=== PATIENT | female | born 1950 | race African-American/Black ===

== ENCOUNTER 2023-07-14 07:58 | Day surgery (SDC) | payer OTHER ==
[2023-07-11 14:03] LABS: Absolute Lymphocytes (CBC) 1.6 K/uL (0.7-4.9); Hematocrit 34.4 % (36.0-45.0); Lymphocytes % 22.3 % (15.3-44.8); MCV 91.9 fL (80-100); MPV 6.6 fL (7.6-11.3); Platelets 255 thou/uL (152-406); RBC Red Blood Cell Count 3.74 M/uL (3.86-4.86)
[2023-07-11 14:08] LABS: Protime INR 1.46
[2023-07-14] MEDS ORDERED: Ringers Lactate 1,000 ML IV ONE (08:46)
[2023-07-14 09:10] LABS: Protime INR 1.04
[2023-07-14] MEDS ORDERED: propofoL 200 MG/20 ML VIAL IV ONE (09:27)
[2023-07-14] MEDS ORDERED: LIDOCAINE 1% MPF 5 ML VIAL ONE (09:27)
[2023-07-14 10:40] VITALS: TEMP 97.7
[2023-07-14 10:42] VITALS: BP 124/67; O2SAT 100
== END 2023-07-14 10:33 | disposition home or self-care (01) ==
LOC: OR 07:58
PROVIDERS: ATTEND Internal Medicine Gastroenterology
PROC: 0DBL8ZX Excision of Transverse Colon, Via Natural or Artificial Opening Endoscopic, Diagnostic (ICD-10-PCS; principal; 2023-07-14 09:15)
DX: D12.3 Benign neoplasm of transverse colon (principal); R19.5 Other fecal abnormalities; K64.8 Other hemorrhoids; D64.9 Anemia, unspecified; C34.90 Malignant neoplasm of unspecified part of unspecified bronchus or lung; Z99.81 Dependence on supplemental oxygen; Z79.01 Long term (current) use of anticoagulants
CPT/HCPCS: 85025; 36415 ×2; 85610 ×2; 88305; 85730 ×2; 45384; J2704; J2001; J7120

== ENCOUNTER 2023-10-07 07:26 | Day surgery (SDC) | payer OTHER ==
[2023-10-03 14:20] LABS: Absolute Lymphocytes (CBC) 1.5 K/uL (0.7-4.9); Lymphocytes % 20.3 % (15.3-44.8); MCV 93.2 fL (80-100); MPV 6.9 fL (7.6-11.3); Platelets 268 thou/uL (152-406); RBC Red Blood Cell Count 3.75 M/uL (3.86-4.86)
[2023-10-03 14:27] LABS: Protime INR 1.69
[2023-10-07] MEDS ORDERED: propofoL 200 MG/20 ML VIAL IV ONE (07:52)
[2023-10-07] MEDS ORDERED: LIDOCAINE 1% MPF 30 ML VIAL ONE (07:52)
[2023-10-07] MEDS: Ringers Lactate 1,000 ML IV ONE (08:05)
[2023-10-07 10:07] VITALS: BP 126/72; TEMP 97.2; O2SAT 98
== END 2023-10-07 09:48 | disposition home or self-care (01) ==
LOC: OR 07:26
PROVIDERS: ATTEND Internal Medicine Gastroenterology
PROC: 0DB78ZX Excision of Stomach, Pylorus, Via Natural or Artificial Opening Endoscopic, Diagnostic (ICD-10-PCS; 2023-10-07)
PROC: 0DB38ZX Excision of Lower Esophagus, Via Natural or Artificial Opening Endoscopic, Diagnostic (ICD-10-PCS; principal; 2023-10-07 08:30)
DX: K21.9 Gastro-esophageal reflux disease without esophagitis (principal); R19.5 Other fecal abnormalities; K29.50 Unspecified chronic gastritis without bleeding; K21.00 Gastro-esophageal reflux disease with esophagitis, without bleeding; K22.9 Disease of esophagus, unspecified; Z99.81 Dependence on supplemental oxygen
CPT/HCPCS: 85025; 36415; 88312; 85610; 88305; 85730; 43239; J2704; J2001; J7120; 88304

== ENCOUNTER 2024-06-27 20:09 | Emergency (ER) | payer OTHER ==
[2024-06-27 20:59] LABS: Absolute Basophils 0.1 K/uL (0-0.5); Absolute Eosinophils 0.1 K/uL (0-0.5); Absolute Lymphocytes (CBC) 2.1 K/uL (0.7-4.9); Absolute Monocytes 0.7 K/uL (0.1-1.3); Absolute Neutrophil 6.1 K/uL (1.8-8.0); Basophils % 0.6 % (0-1.3); Eosinophils % 0.6 % (0-4.4); Hematocrit 35.1 % (36.0-45.0); Hemoglobin 11.6 g/dL (12.0-15.0); Lymphocytes % 22.9 % (15.3-44.8); MCH 30.5 pg (27.0-35.0); MCV 92.4 fL (80-100); Monocytes % 8.3 % (3.3-12.3); Neutrophils % 67.6 % (41.7-73.7); Platelets 336 thou/uL (152-406); Red Cell Distribution Width 14.7 % (12.1-15.2)
[2024-06-27] MEDS ORDERED: GABAPENTIN 300 MG CAP ONE (21:09)
[2024-06-27] MEDS ORDERED: dexAMETHasone 10 MG/ML VIAL ONE (21:09)
[2024-06-27] MEDS ORDERED: NA CHLORIDE 0.9% 100 ML ONE (21:11)
[2024-06-27] MEDS ORDERED: METHOCARBAMOL 1,000 MG/10 ML VIAL ONE (21:11)
[2024-06-27 21:39] LABS: Albumin 3.5 g/dL (3.4-5.0); Albumin/Globulin Ratio 0.7 (1.1-1.8); Anion Gap 7.8 mEq/L (5.0-15.0); Bilirubin Total 0.3 mg/dL (0.2-1.0); Globulin 4.9 g/dL (2.3-3.5); Potassium 3.8 mEq/L (3.5-5.1); Protein, Total 8.4 g/dL (6.4-8.2)
--- NOTE | 2024-06-27 21:56 | RAD REPORT ---
EXAMINATION: US LOWER EXTREMITY VENOUS DOPPLER BILATERAL CLINICAL INDICATION: Female, 73 years old.PAIN TECHNIQUE: Complete bilateral duplex sonography of the lower extremity veins was performed. The exami nation included compression for vein patency, color Doppler imaging and flow augmentation in response to distal compression of the distal external iliac, common femoral, femoral, popliteal, phan brenda, tibial and great saphenous veins. [id number]. COMPARISON: No prior exams FINDINGS: Duplex sonography imaging demonstrates all deep examined to be fully compressible with spontaneous, p hasic and augmented flow bilaterally. IMPRESSION: No evidence of deep venous thrombosis seen in either lower extremity.
--- NOTE | 2024-06-27 22:17 | RAD REPORT ---
EXAMINATION: CT ABDOMEN AND PELVIS WITH CONTRAST CLINICAL INDICATION: Female, 73 years old.low back and pelvis pain TECHNIQUE: CT abdomen and pelvis was performed, after the administration of IV contrast, as per [facility] protocol. Axial, sagittal and coronal reconstructions were obtained. One or more of the following dose reduction techniques were used: Automated exposure control, adjustment of the mA and/o r kV according to patient size, and/or iterative reconstruction. Unless otherwise specified, incidental findings do not require dedicated imaging follow-up. [id number]. COMPARISON: Chest CT 05/12/2024 FINDINGS: LOWER CHEST: Scarring lung bases. 17 mm left hilar lymph node is unchanged. LIVER: Normal in size and contour. No focal lesion. GALLBLADDER/BILE DUCT: No biliary ductal dilatation.? PANCREAS: No significant abnormality. SPLEEN: Normal size. No focal lesion. ADRENALS: Normal; no mass. KIDNEYS AND URETERS: Normal size and contour. No hydronephrosis. GASTROINTESTINAL TRACT: Stomach is non-dilated. Small bowel has normal course and caliber. No colonic wall thickening or pericolonic inflammatory changes. PERITONEUM: No ascites. LYMPH NODES: No lymphadenopathy. ABDOMINAL AORTA AND OTHER VESSELS: Normal caliber aorta and IVC. URINARY BLADDER: Normal contour. REPRODUCTIVE ORGANS: No pathologic process extremity. MUSCULOSKELETAL: Osseous metastatic disease is present. This includes at L1 along the left anterior a spect of vertebral body, and L4. Remote left-sided rib fractures. Spinal stenosis likely due to underlying degenerative changes at L3-4 and L4-5 primarily. Is moderate. ADDITIONAL FINDINGS: None. IMPRESSION: Osseous metastatic disease with particular involvement of L4. No significant height loss. This involv es nearly the anterior half of the vertebral body. By CT, no evidence of epidural extension or resultant central spinal stenosis.
[2024-06-27 22:42] LABS: Specific Gravity > 1.030 (1.005-1.030); Sqamous Epithelial <5 /HPF (None Seen); Urine Bacteria <20 /HPF (<20); Urine Bilirubin NEGATIVE (Negative); Urine Blood 1+ (Negative); Urine Clarity Clear (Clear); Urine Color Light-Yellow (Yellow); Urine Culture Reflex Order NOT NEEDED; Urine Glucose NEGATIVE (Negative); Urine Ketones NEGATIVE (Negative); Urine Microscopic Reflex YN ORDER UMIC; Urine Mucus Slight /HPF (None Seen); Urine Nitrite NEGATIVE (Negative); Urine Protein TRACE (Negative); Urine RBC <5 /HPF (None Seen); Urine Urobilinogen 1+ (Normal); Urine WBC <5 /HPF (<5); Urine pH 5.5 (5.0-7.0)
--- NOTE | 2024-06-27 23:48 | ER ---
Nurse's Notes [facility] Name: Kaylah Roper Age: 73 yrs Sex: Female : 1950 Arrival Date: 06/27/2024 Time: 20:09 Bed 20 Private MD: Diagnosis: Radiculopathy, lumbosacral region;Low back pain Presentation: 06/27 20:34 Chief complaint: Patient states: chronic lower back pain that radiates down both me1 thighs. Almost out of tylenol #3 at home. Coronavirus screen: Vaccine status: Patient reports receiving the 2nd dose of the covid vaccine. Ebola Screen: No symptoms or risks identified at this time. Initial Sepsis Screen: Does the patient meet any 2 criteria? No. Patient's initial sepsis screen is negative. Does the patient have a suspected source of infection? No. Patient's initial sepsis screen is negative. Risk Assessment: Do you want to hurt yourself or someone else? Patient reports no desire to harm self or others. Onset of symptoms is unknown. 20:34 Method Of Arrival: Wheelchair me1 20:34 Acuity: JASPER 4 me1 Historical: - Allergies: 20:35 No Known Allergies; me1 - PMHx: 20:35 lung cancer; Hypertensive disorder; rib fractures; DVTleft leg; me1 - PSHx: 20:35 Ligation of fallopian tube; hysterectomy; me1 - Immunization history:: Adult Immunizations up to date. - Infectious Disease History:: Denies. - Social history:: Smoking status: Patient/guardian denies using tobacco, the patient reports quitting approximately 2 years ago. Screenin:18 [facility] ED Fall Risk Assessment (Adult) History of falling in the last 3 months, br2 including since admission No falls in past 3 months (0 pts) Confusion or Disorientation No (0 pts) Intoxicated or Sedated No (0 pts) Impaired Gait Yes (1 pt) Mobility Assist Device Used Yes (1 pt) Altered Elimination No (0 pt) Score/Fall Risk Level 0 - 2 = Low Risk Oriented to surroundings, Maintained a safe environment, Educated pt \T\ family on fall prevention, incl call for assistance when getting out of bed. Abuse screen: Denies threats or abuse. Denies injuries from another. Nutritional screening: No deficits noted. Tuberculosis screening: No symptoms or risk factors identified. Assessment: 20:40 Reassessment: Patient and/or family updated on plan of care and expected duration. Pain br2 level reassessed. Patient is alert, oriented x 3, equal unlabored respirations, skin warm/dry/pink. General: Appears uncomfortable, Behavior is calm, cooperative. Pain: Complains of pain in lumbar area, left low back and right low back Pain radiates to back of left leg, back of right leg, right leg and left leg. Neuro: Level of Consciousness is awake, alert, obeys commands, Oriented to person, place, time. Cardiovascular: Capillary refill < 3 seconds. Respiratory: Airway is patent Respiratory effort is even, unlabored. GI: No signs and/or symptoms were reported involving the gastrointestinal system. : No signs and/or symptoms were reported regarding the genitourinary system. EENT: No signs and/or symptoms were reported regarding the EENT system. 21:00 Reassessment: Patient and/or family updated on plan of care and expected duration. Pain br2 level reassessed. Patient is alert, oriented x 3, equal unlabored respirations, skin warm/dry/pink. 22:50 Reassessment: Patient and/or family updated on plan of care and expected duration. Pain br2 level reassessed. Patient is alert, oriented x 3, equal unlabored respirations, skin warm/dry/pink. 23:45 Reassessment: Patient and/or family updated on plan of care and expected duration. Pain br2 level reassessed. Patient is alert, oriented x 3, equal unlabored respirations, skin warm/dry/pink. Patient states feeling better. Patient states symptoms have improved. Vital Signs: 20:34 BP 166 / 104; Pulse 95; Resp 20; Temp 98.4; Pulse Ox 100% on 3 lpm NC; Weight 117.93 me1 kg; Height 5 ft. 5 in. ; Pain 9/10; 21:00 BP 120 / 60; Pulse 96; Resp 20; Temp 97.2; Pulse Ox 97% on 2 lpm NC; br2 22:21 BP 128 / 64; Pulse 94; Resp 18 S; Temp 97.2; Pulse Ox 100% on 2 lpm NC; br2 22:46 BP 116 / 86; Pulse 87; Resp 18 S; Temp 97.1; Pulse Ox 100% on 2 lpm NC; Pain 5/10; br2 23:00 BP 124 / 84; Pulse 84; Resp 20 S; Pulse Ox 100% on R/A; Pain 3/10; br2 20:34 Body Mass Index 43.27 (117.93 kg, 165.1 cm) me1 20:34 Pain Scale: Adult me1 22:46 Pain Scale: Adult br2 23:00 Pain Scale: Adult br2 ED Course: 20:11 Patient arrived in ED. jj6 20:14 Gorge Brito PA is PHCP. cp 20:14 Jose David Garrison MD is Attending Physician. cp 20:30 Patient has correct armband on for positive identification. Bed in low position. Call br2 light in reach. Side rails up X 1. Provided Education on: PLAN OF CARE. 20:35 Triage completed. me1 20:35 Arm band placed on Patient placed in an exam room. me1 20:40 Tamiko Morrow, RN is Primary Nurse. br2 20:40 Inserted saline lock: 20 gauge in right antecubital area, using aseptic technique. br2 Blood collected. Flushed with 10 mL NS. 21:18 CMP Sent. br2 21:18 Lipase Sent. br2 21:18 Urinalysis w/ reflexes Sent. br2 21:44 EKG done, by technology trainer. reviewed by Jose David Garrison MD. oh1 21:54 US Extremity Venous W Compression Maninder In Process Unspecified. EDMS 22:02 CT Abd/Pelvis - IV Contrast Only In Process Unspecified. EDMS 23:53 intact, bleeding controlled, No redness/swelling at site. Pressure dressing applied. oh1 23:59 IV discontinued, intact, bleeding controlled, No redness/swelling at site. Pressure br2 dressing applied. 06/28 00:05 No provider procedures requiring assistance completed. br2 Administered Medications: 06/27 21:17 Drug: Neurontin PO 300 mg PO once Route: PO; br2 22:00 Follow up: Response: No adverse reaction; Pain is decreased br2 22:17 Drug: Methocarbamol IVPB 1 grams IVPB once over 1 hrs; (mix in NS 100 mL) Route: IVPB; br2 Infused Over: 1 hrs; Site: right antecubital; 23:20 Follow up: IV Status: Completed infusion; IV Intake: 100ml br2 22:18 Drug: Dexamethasone IVP 10 mg IVP once Route: IVP; Site: right antecubital; br2 23:00 Follow up: Response: No adverse reaction br2 Medication: 06/28 00:05 VIS not applicable for this client. br2 Intake: 06/27 23:20 IV: 100ml; Total: 100ml. br2 Outcome: 23:48 Discharge ordered by MD. cp 23:59 Discharged to home ambulatory, br2 23:59 Condition: good 23:59 Discharge instructions given to patient, Instructed on discharge instructions, follow up and referral plans. medication usage, Demonstrated understanding of medications, Prescriptions given X 3, 06/28 00:09 Patient left the ED. br2 Signatures: Dispatcher [employer] EDMS Gorge Brito PA PA cp Jeffries, Jennifer [email or web address] Mervat Junior RN RN me1 Tamiko Morrow RN RN br2 Sophia Aguilar oh1 Corrections: (The following items were deleted from the chart) 06/27 22:50 22:21 BP 128 / 64; Pulse 94bpm; Resp 18bpm; Spontaneous; Pulse Ox 100% RA; Temp 97.2F; br2 br2 22:50 22:46 BP 116 / 86; Pulse 87bpm; Resp 18bpm; Spontaneous; Pulse Ox 100% RA; Temp 97.1F; br2 Pain 5/10, Adult; br2
--- NOTE | 2024-06-27 23:48 | EDPHYS ---
Physician Documentation [facility] Name: Kaylah Roper Age: 73 yrs Sex: Female : 1950 Arrival Date: 06/27/2024 Time: 20:09 Bed 20 Private MD: ED Physician Jose David Garrison HPI: 06/27 20:50 This 73 yrs old Black Female presents to ER via Wheelchair with complaints of Hip Pain, cp Back Pain, Pelvic Pain. 20:50 The patient presents with pain that is chronic, with no known mechanism of injury. cp 20:50 The symptoms are located in the low back. Onset: The symptoms/episode began/occurred cp for several months. The pain radiates to the left hip and right hip and pain to left leg and right leg. Associated signs and symptoms: Pertinent positives: left leg and right leg weakness, Pertinent negatives: abdominal pain, chest pain, constipation, dysuria, fever, incontinence, numbness, injury. Severity of symptoms: in the emergency department the symptoms are unchanged, despite home interventions. Historical: - Allergies: 20:35 No Known Allergies; me1 - PMHx: 20:35 lung cancer; Hypertensive disorder; rib fractures; DVTleft leg; me1 - PSHx: 20:35 Ligation of fallopian tube; hysterectomy; me1 - Immunization history:: Adult Immunizations up to date. - Infectious Disease History:: Denies. - Social history:: Smoking status: Patient/guardian denies using tobacco, the patient reports quitting approximately 2 years ago. ROS: 20:55 Constitutional: Negative for body aches, chills, fever, poor PO intake, cp 20:55 Eyes: Negative for injury, pain, redness, and discharge, cp 20:55 ENT: Negative for drainage from ear(s), ear pain, sore throat, difficulty swallowing, difficulty handling secretions, 20:55 Neck: Negative for pain with movement, pain at rest, stiffness, 20:55 Cardiovascular: Negative for chest pain, edema, palpitations, 20:55 Respiratory: Negative for cough, shortness of breath, wheezing, 20:55 Abdomen/GI: Negative for abdominal pain, vomiting, diarrhea, constipation, 20:55 Back: Positive for pain at rest, pain with movement, of the low back area and mid back area, 20:55 MS/extremity: Positive for pain, of the left hip and right hip and left leg and right leg, Negative for injury or acute deformity, decreased range of motion, paresthesias, 20:55 Neuro: Positive for weakness, of the right leg and left leg, Negative for altered mental status, dizziness, numbness, 20:55 All other systems are negative, Exam: 21:00 Constitutional: The patient appears in no acute distress, alert, awake, non-toxic, well cp developed, well nourished, obese, 21:00 Head/Face: Normocephalic, atraumatic. cp 21:00 Eyes: Periorbital structures: appear normal, Conjunctiva: normal, no exudate, no injection, Sclera: no appreciated abnormality, Lids and lashes: appear normal, bilaterally, 21:00 ENT: External ear(s): are unremarkable, Nose: is normal, Mouth: Lips: moist, Oral mucosa: pink and intact, moist, Posterior pharynx: Airway: no evidence of obstruction, patent, 21:00 Neck: ROM/movement: is normal, is supple, without pain, no range of motions limitations, 21:00 Chest/axilla: Inspection: normal, 21:00 Cardiovascular: Rate: normal, Rhythm: regular, Edema: ankle edema, that is mild, JVD: is not appreciated, 21:00 Respiratory: the patient does not display signs of respiratory distress, Respirations: normal, no use of accessory muscles, no retractions, labored breathing, is not present, Breath sounds: are clear throughout, no decreased breath sounds, no stridor, no wheezing, 21:00 Abdomen/GI: Inspection: abdomen appears normal, Palpation: abdomen is soft and non-tender, in all quadrants, 21:00 Back: pain, that is moderate, of the low back area and mid back area, ROM is painful, with all movement, 21:00 Musculoskeletal/extremity: ROM: limited passive range of motion due to pain, in the left hip and right hip, 21:00 Neuro: Orientation: to person, place \T\ time. Mentation: is normal, Motor: moves all fours, no focal deficits, Sensation: no obvious gross deficits, 22:00 ECG was reviewed by the Attending Physician. cp Vital Signs: 20:34 BP 166 / 104; Pulse 95; Resp 20; Temp 98.4; Pulse Ox 100% on 3 lpm NC; Weight 117.93 me1 kg; Height 5 ft. 5 in. ; Pain 9/10; 21:00 BP 120 / 60; Pulse 96; Resp 20; Temp 97.2; Pulse Ox 97% on 2 lpm NC; br2 22:21 BP 128 / 64; Pulse 94; Resp 18 S; Temp 97.2; Pulse Ox 100% on 2 lpm NC; br2 22:46 BP 116 / 86; Pulse 87; Resp 18 S; Temp 97.1; Pulse Ox 100% on 2 lpm NC; Pain 5/10; br2 23:00 BP 124 / 84; Pulse 84; Resp 20 S; Pulse Ox 100% on R/A; Pain 3/10; br2 20:34 Body Mass Index 43.27 (117.93 kg, 165.1 cm) me1 20:34 Pain Scale: Adult me1 22:46 Pain Scale: Adult br2 23:00 Pain Scale: Adult br2 MDM: 20:24 Medical Screening Exam initiated 21:00 Differential diagnosis: intertrochanteric fracture, femoral neck fracture, femoral cp shaft fracture, bursitis. 23:47 Data reviewed: vital signs, nurses notes, lab test result(s), radiologic studies, CT cp scan, and as a result, I will discharge patient. 23:47 I considered the following discharge prescriptions or medication management in the emergency department Medications were administered in the Emergency Department. See MAR. Care significantly affected by the following chronic conditions: Hypertension, Cancer. Counseling: I had a detailed discussion with the patient and/or guardian regarding the historical points, exam findings, and any diagnostic results supporting the discharge/admit diagnosis, lab results, radiology results, the need for outpatient follow up, oncology, to return to the emergency department if symptoms worsen or persist or if there are any questions or concerns that arise at home. Response to treatment: the patient's symptoms have markedly improved after treatment, and as a result, I will discharge patient. Special discussion: findings of CT abdomen/pelvis and need for oncology f/u. 06/27 20:47 Order name: CBC with Diff; Complete Time: 22:33 06/27 22:33 Interpretation: Normal except: RBC 3.80; HGB 11.6; HCT 35.1; MPV 7.0. 06/27 20:47 Order name: CMP; Complete Time: 22:33 cp 06/27 22:34 Interpretation: Normal except: NA 135; CRE 1.12; GFR 53; ALK 179; TP 8.4; GLOB 4.9; A/G cp 0.7. 06/27 20:47 Order name: Lipase; Complete Time: 22:33 cp 06/27 20:47 Order name: Urinalysis w/ reflexes; Complete Time: 22:50 cp 06/27 22:50 Interpretation: Normal except: Urine SG > 1.030; UBLD 1+; UPROT TRACE; UUROB 1+. cp 06/27 20:47 Order name: CT Abd/Pelvis - IV Contrast Only; Complete Time: 22:33 cp 06/27 20:47 Order name: US Extremity Venous W Compression Maninder; Complete Time: 22:33 cp 06/27 22:36 Interpretation: Report reviewed. cp 06/27 20:47 Order name: IV Saline Lock; Complete Time: 21:18 cp 06/27 20:47 Order name: Labs collected and sent; Complete Time: 21:18 cp EC:00 Rate is 94 beats/min. Rhythm is regular. DC interval is normal. QRS interval is normal. cp QT interval is normal. T waves are Inverted in lead aVR. Interpreted by me. Reviewed by me. Administered Medications: 21:17 Drug: Neurontin PO 300 mg PO once Route: PO; br2 22:00 Follow up: Response: No adverse reaction; Pain is decreased br2 22:17 Drug: Methocarbamol IVPB 1 grams IVPB once over 1 hrs; (mix in NS 100 mL) Route: IVPB; br2 Infused Over: 1 hrs; Site: right antecubital; 23:20 Follow up: IV Status: Completed infusion; IV Intake: 100ml br2 22:18 Drug: Dexamethasone IVP 10 mg IVP once Route: IVP; Site: right antecubital; br2 23:00 Follow up: Response: No adverse reaction br2 Disposition: 06/28 20:15 Co-signature as Attending Physician, Jose David Garrison MD I agree with the assessment sp4 and plan of care. I reviewed the patient's care provided by the Advanced Practice Provider and agree with the diagnosis and treatment plan. Disposition Summary: 06/27/24 23:48 Discharge Ordered Notes: Location: Home cp Problem: an ongoing problem cp Symptoms: have improved cp Condition: Stable cp Diagnosis - Radiculopathy, lumbosacral region cp - Low back pain cp Followup: cp - With: Private Physician - When: 2 - 3 days - Reason: Recheck today's complaints Discharge Instructions: - Discharge Summary Sheet cp - Chronic Back Pain cp - Lumbosacral Radiculopathy cp - Heat Therapy cp Forms: - Medication Reconciliation Form cp - Antibiotic Education cp - Prescription Opioid Use cp - Patient Portal Instructions cp - Leadership Thank You Letter cp Prescriptions: - Neurontin 300 mg Oral Capsule - take 1 capsule ORAL route At bedtime; 20 capsule; Refills: 0, Product Selection cp Permitted - Ultram 50 mg Oral Tablet - take 1 tablet ORAL route every 6 hours As needed; 12 tablet; Refills: 0, cp Product Selection Permitted - methocarbamol 750 mg Oral tablet - take 2 tablets ORAL route 2-3 times daily; 60 tablet; Refills: 0, Product cp Selection Permitted Signatures: Dispatcher [employer] EDMS Gorge Brito PA PA cp Jose David Garrison MD MD sp4 Mervat Junior RN RN me1 Tamiko Morrow RN RN br2 Corrections: (The following items were deleted from the chart) 01:42 01:41 ECG was reviewed by the Attending Physician. cp cp 01:42 01:41 Rate is 94 beats/min. Rhythm is regular. DC interval is normal. QRS interval is cp normal. QT interval is normal. T waves are Inverted in lead aVR. Interpreted by me. Reviewed by me. cp
[2024-06-28 01:01] VITALS: O2SAT 100
[2024-06-28 01:03] VITALS: TEMP 97.1
[2024-06-28 01:04] VITALS: BP 124/84
--- NOTE | 2024-06-29 12:22 | EKG ---
Test Date: 2024-06-27 Test Time: 21:51:55 Blender Helper: JANNETH MEASUREMENT RESULTS: Intervals: Rate: 94 [place]: 158 QRSD: 82 QT: 360 QTc: 450 [place]: P: 41 [place]: 158 QRS: 46 T: 29 INTERPRETIVE STATEMENTS: Normal sinus rhythm Normal ECG No previous ECG available for comparison Electronically Signed On 06-29-24 12:17:48 MIXER MACHINE FEEDER by Chucky Pelaez
== END 2024-06-28 00:09 | disposition home or self-care (01) ==
LOC: ER 20:09
DX: M54.17 Radiculopathy, lumbosacral region (principal)
CPT/HCPCS: 96365; 93005; 85025; 81001; 36415; 83690; 80053; 74177; 93970; 96375; 99284; Q9967; J1100; J2800

== ENCOUNTER 2024-08-09 12:09 | Emergency (ER) | payer OTHER ==
[2024-08-09] MEDS ORDERED: HYDROCODONE/APAP 5/325 MG TAB ONE (12:35)
[2024-08-09 12:53] LABS: Absolute Basophils 0.1 K/uL (0-0.5); Absolute Lymphocytes (CBC) 1.4 K/uL (0.7-4.9); Absolute Monocytes 0.5 K/uL (0.1-1.3); Absolute Neutrophil 5.3 K/uL (1.8-8.0); Basophils % 0.8 % (0-1.3); Eosinophils % 0.3 % (0-4.4); Hematocrit 29.6 % (36.0-45.0); Hemoglobin 9.5 g/dL (12.0-15.0); Lymphocytes % 19.4 % (15.3-44.8); MCH 30.9 pg (27.0-35.0); MCHC 32.3 g/dL (32.0-36.0); MCV 95.8 fL (80-100); MPV 6.7 fL (7.6-11.3); Monocytes % 6.9 % (3.3-12.3); Neutrophils % 72.6 % (41.7-73.7); Platelets 345 thou/uL (152-406); RBC Red Blood Cell Count 3.09 M/uL (3.86-4.86); Red Cell Distribution Width 16.4 % (12.1-15.2)
[2024-08-09 13:12] LABS: Anion Gap 9.5 mEq/L (5.0-15.0); Potassium 3.5 mEq/L (3.5-5.1); Troponin High Sensitivity 5.4 pg/mL (<58.9)
--- NOTE | 2024-08-09 14:56 | RAD REPORT ---
EXAM: CT Chest For Pe Angio TECHNIQUE: CT angiogram of the chest was performed following intravenous contrast administration, inc luding sagittal and coronal as well as maximum intensity projection reformats. One or more of the following dose reduction techniques were used: Automated exposure control, adjustment of the mA and k V according to patient size, and iterative reconstruction. Unless otherwise specified, incidental findings do not require dedicated imaging follow-up. INDICATION: [facility] lung cancer, left clavicular/subclavicular pain Bed Name: 19 Y COMPARISON: 07/07/2024. FINDINGS: LINES/TUBES: None. PULMONARY ARTERIES: Main pulmonary arteries are normal in caliber. No filling defects within the pul monary arteries to suggest pulmonary embolus. LUNGS AND AIRWAYS: Mild subsegmental atelectatic dependent changes Limited evaluation. Progressive en largement of mildly irregular left upper lobe nodule now measuring 1.3 cm, previously measured 1 cm. PLEURA: No pneumothorax. Small layering bilateral pleural effusions, progressive since prior exam HEART AND MEDIASTINUM: The visualized thyroid gland is normal. Progressive left infrahilar node measu ring 1.4 cm in short axis. Mildly progressive mediastinal lymph nodes as well, including the left paratracheal node measuring 1.3 cm in short axis. No bulky right hilar adenopathy although absence of IV contrast on the prior exam limits evaluation. Heart is unremarkable. No pericardial effusion. SOFT TISSUES AND BONES: Multiple lytic lesions involving the osseous structures, most numerous along the ribs and thoracic vertebral bodies, some of these demonstrate progressive enlargement, for example a lytic lesion involving the head/neck of the right fifth rib, which now measures 2.1 cm in g reatest axial dimensions, previously measured 1.2 cm (see series 501 image 94. Additionally, lytic lesions involving T2 and T6 vertebral bodies also show interval enlargement, now measuring 1.9 and 2. 1 cm respectively, previously measured 1.6 and 1.3 cm respectively. Multiple posterior left lower rib fractures, with appearance of healing, could be related to trauma or underlying subtle lytic lesi ons. UPPER ABDOMEN: Unremarkable. IMPRESSION: No evidence of acute central pulmonary emboli. Small bilateral pleural effusions have developed. Progressive mildly irregular left upper lobe nodule, and progressive mediastinal and left hilar adeno queenie as well as worsening numerous skeletal lytic lesions, all concerning for progressive metastatic disease..
--- NOTE | 2024-08-09 15:22 | RAD REPORT ---
EXAMINATION: ONE VIEW CHEST XR CLINICAL INDICATION: Female, 73 years old.,left clavicle pain TECHNIQUE: Frontal chest projection is submitted. Examination is limited by patient positioning and t echnique. COMPARISON: 07/06/[address] chest of the same day FINDINGS: The lungs are well inflated with subtle peripheral left upper lobe nodule exceeding 1 cm, better eval uated on CT of the same day. Stable chronic interstitial coarsening. No pneumothorax or sizable effusion. The heart is normal in size. Mediastinal contours are unremarkable. IMPRESSION: Stable chronic interstitial coarsening, may relate to mild fibrotic changes or interstitial edema. Ot her findings as above.
--- NOTE | 2024-08-09 16:05 | RAD REPORT ---
EXAMINATION: XR LEFT SHOULDER CLINICAL INDICATION: Female, 73 years old. PAIN TECHNIQUE: Internal and external AP view radiograph of the left shoulder were obtained. COMPARISON: No prior exam. FINDINGS: No evidence of fracture or dislocation. Normal alignment. Mild AC joint degenerative change s. No focal bone lesion. Soft tissues are unremarkable. IMPRESSION: Mild AC joint degenerative changes. No other acute or significant abnormalities.
--- NOTE | 2024-08-09 16:55 | ER ---
Nurse's Notes [facility] Name: Kaylah Roper Age: 73 yrs Sex: Female : 1950 Arrival Date: 08/09/2024 Time: 12:09 Bed 17 Private MD: Diagnosis: Metastatic lung cancer;Pain in left shoulder Presentation: 08/09 12:18 Chief complaint: Patient states: 10/10 left shoulder/clavicular pain x3 days. reports kc6 hx of bone cx, denies injury. Coronavirus screen: At this time, the client does not indicate any symptoms associated with coronavirus-19. Ebola Screen: No symptoms or risks identified at this time. Initial Sepsis Screen: Does the patient meet any 2 criteria? HR > 90 bpm. Does the patient have a suspected source of infection? No. Patient's initial sepsis screen is negative. Risk Assessment: Do you want to hurt yourself or someone else? Patient reports no desire to harm self or others. Onset of symptoms was August 09, 2024. 12:18 Method Of Arrival: EMS: [facility] kc6 12:18 Acuity: JASPER 4 kc6 Historical: - Allergies: 12:19 No Known Allergies; kc6 - PMHx: 12:19 COPD; DVTleft leg; Hypertensive disorder; Lung Cancer; rib fractures; bone cancer (rib kc6 fractures); - PSHx: 12:19 hysterectomy; Ligation of fallopian tube; kc6 - Immunization history:: Adult Immunizations up to date. - Infectious Disease History:: Denies. - Social history:: Smoking status: Patient denies any tobacco usage or history of. - Family history:: not pertinent. - Hospitalizations: : No recent hospitalization is reported. Screenin:[address] [facility] ED Fall Risk Assessment (Adult) History of falling in the last 3 months, kc6 including since admission No falls in past 3 months (0 pts) Confusion or Disorientation No (0 pts) Intoxicated or Sedated No (0 pts) Impaired Gait No (0 pts) Mobility Assist Device Used No (0 pt) Altered Elimination No (0 pt) Score/Fall Risk Level 0 - 2 = Low Risk Oriented to surroundings, Maintained a safe environment. Abuse screen: Denies threats or abuse. Denies injuries from another. Nutritional screening: No deficits noted. Tuberculosis screening: No symptoms or risk factors identified. Assessment: 12:51 General: Appears in no apparent distress. comfortable, obese, well groomed, well kc6 developed, Behavior is calm, cooperative, appropriate for age. Pain: Complains of pain in left clavicle and anterior aspect of left shoulder Pain currently is 10 out of 10 on a pain scale. Neuro: Level of Consciousness is awake, alert, obeys commands, Oriented to person, place, time, situation, Appropriate for age. Cardiovascular: Capillary refill < 3 seconds. Respiratory: Airway is patent Trachea midline Respiratory effort is even, unlabored, Respiratory pattern is regular, symmetrical. GI: No signs and/or symptoms were reported involving the gastrointestinal system. : No signs and/or symptoms were reported regarding the genitourinary system. EENT: No signs and/or symptoms were reported regarding the EENT system. Derm: Skin is healthy with good turgor, Skin is dry, Skin is pink, warm \T\ dry. Skin temperature is warm. Musculoskeletal: No signs and/or symptoms reported regarding the musculoskeletal system. Circulation, motion, and sensation intact. Capillary refill < 3 seconds, Range of motion: intact in all extremities. 13:57 Reassessment: Patient appears in no apparent distress at this time. No changes from kc6 previously documented assessment. Patient and/or family updated on plan of care and expected duration. Pain level reassessed. Patient is alert, oriented x 3, equal unlabored respirations, skin warm/dry/pink. 14:51 Reassessment: Patient appears in no apparent distress at this time. No changes from kc6 previously documented assessment. Patient and/or family updated on plan of care and expected duration. Pain level reassessed. Patient is alert, oriented x 3, equal unlabored respirations, skin warm/dry/pink. 15:26 Reassessment: Patient appears in no apparent distress at this time. No changes from kc6 previously documented assessment. Patient and/or family updated on plan of care and expected duration. Pain level reassessed. Patient is alert, oriented x 3, equal unlabored respirations, skin warm/dry/pink. 15:47 Reassessment: pt placed on purewick at this time. kc6 17:54 Reassessment: Patient appears in no apparent distress at this time. No changes from kc6 previously documented assessment. Patient and/or family updated on plan of care and expected duration. Pain level reassessed. Patient is alert, oriented x 3, equal unlabored respirations, skin warm/dry/pink. Vital Signs: 12:18 BP 126 / 62; Pulse 102; Resp 18 S; Temp 98.6(O); Pulse Ox 90% on R/A; Weight 112.94 kg kc6 (R); Height 5 ft. 5 in. (R); Pain 10/10; 12:56 Pulse 95; Pulse Ox 98% on 2 lpm NC; kc6 13:58 BP 133 / 69; Pulse 90; Resp 18 S; Pulse Ox 95% on 2 lpm NC; kc6 14:51 BP 142 / 73; Pulse 89; Resp 16 S; Pulse Ox 98% on R/A; kc6 15:26 BP 129 / 68; Pulse 90; Resp 16 S; Pulse Ox 97% on 2 lpm NC; kc6 17:54 BP 126 / 61; Pulse 85; Resp 17 S; Pulse Ox 99% on 2 lpm NC; kc6 12:18 Body Mass Index 41.44 (112.94 kg, 165.1 cm) kc6 12:18 Pain Scale: Adult kc6 ED Course: 12:15 Patient arrived in ED. rn 12:15 Cory Garcia MD is Attending Physician. rn 12:17 Angelina Heller, BRENNAN is Primary Nurse. kc6 12:19 Triage completed. kc6 12:19 Arm band placed on. kc6 12:20 Oxygen administration via nasal cannula \T\ 2L/min. kc6 12:32 Patient has correct armband on for positive identification. Placed in gown. Bed in low kc6 position. Call light in reach. Side rails up X2. Adult w/ patient. roll tube setter on. Pulse ox on. NIBP on. Door closed. Noise minimized. Lights dimmed. Warm blanket given. Pillow given. 12:33 Repositioned patient. Cleaned of incontinence. Linen changed. kc6 12:42 EKG done, by ED staff, reviewed by Cory Garcia MD. am7 12:51 Inserted saline lock: 22 gauge in right wrist, using aseptic technique. Blood kc6 collected. Flushed with 10 mL NS. 13:43 CT Chest For PE Angio In Process Unspecified. EDMS 13:55 XRAY Chest (1 view) In Process Unspecified. EDMS 13:55 XRAY Shoulder LEFT 2 view In Process Unspecified. EDMS 17:54 No provider procedures requiring assistance completed. IV discontinued, intact, kc6 bleeding controlled, No redness/swelling at site. Pressure dressing applied. Administered Medications: 12:51 Drug: HYDROcodone-acetaminophen PO 5 mg-325 mg 1 tabs PO once Route: PO; kc6 13:58 Follow up: Response: No adverse reaction; RASS: Alert and Calm (0) kc6 Medication: 17:55 VIS not applicable for this client. kc6 Outcome: 16:54 Discharge ordered by . rn 17:54 Discharged to home via ambulance, kc6 17:54 Condition: good 17:54 Discharge instructions given to patient, family, Instructed on discharge instructions, follow up and referral plans. Demonstrated understanding of instructions, follow-up care, 17:55 Patient left the ED. kc6 Signatures: Dispatcher [employer] EDMS Cory Garcia MD MD rn Campbell, Kaitlyn, RN RN kc6 Evy Peralta am7
--- NOTE | 2024-08-09 16:55 | EDPHYS ---
[facility] Name: Kaylah Roper Age: 73 yrs Sex: Female : 1950 Arrival Date: 08/09/2024 Time: 12:09 Bed 17 Private MD: ED Physician Cory Garcia HPI: 08/09 15:11 This 73 yrs old Black Female presents to ER via EMS with complaints of Shoulder Pain. rn 15:11 The patient or guardian complains of pain. left shoulder, left trapezius and left rn clavicle. Onset: The symptoms/episode began/occurred 2 day(s) ago. Associated signs and symptoms: Pertinent negatives: abdominal pain, chest pain, neck pain. Severity of symptoms: At their worst the symptoms were moderate, in the emergency department the symptoms are unchanged. The patient has experienced similar episodes in the past. Patient reports has known lung cancer with metastasis to bone. Reports has been having left shoulder and clavicular pain for some time now, worse over the last 2 days. Denies fall or direct trauma. No other acute changes. No swelling of the left arm. Takes anticoagulation.. Historical: - Allergies: 12:19 No Known Allergies; kc6 - PMHx: 12:19 COPD; DVTleft leg; Hypertensive disorder; Lung Cancer; rib fractures; bone cancer (rib kc6 fractures); - PSHx: 12:19 hysterectomy; Ligation of fallopian tube; kc6 - Immunization history:: Adult Immunizations up to date. - Infectious Disease History:: Denies. - Social history:: Smoking status: Patient denies any tobacco usage or history of. - Family history:: not pertinent. - Hospitalizations: : No recent hospitalization is reported. ROS: 15:11 Constitutional: Negative for fever, chills, and weight loss, Neck: Negative for injury, rn pain, and swelling, Cardiovascular: Negative for chest pain, palpitations, and edema, Respiratory: Negative for shortness of breath, wheezing Abdomen/GI: Negative for abdominal pain, nausea, vomiting, diarrhea, and constipation, MS/Extremity: Positive for left shoulder pain Exam: 15:11 Constitutional: This is a well developed, well nourished patient who is awake, alert, rn and in no acute distress. Head/Face: Normocephalic, atraumatic. Neck: No midline cervical tenderness Chest/axilla: Mild tenderness inferior to left clavicle without crepitus or swelling Cardiovascular: Regular rate and rhythm. No pulse deficits. Respiratory: Speaking full sentences. No increased work of breathing, no retractions or nasal flaring. MS/ Extremity: Pulses equal, no cyanosis. Neurovascular intact. When distracted was able to move the left shoulder without apparent discomfort. No focal bony tenderness of the shoulder proper. Mild tenderness along the left clavicle and infraclavicular region. Neuro: Awake and alert, GCS 15 15:50 ECG was reviewed by the Attending Physician. rn Vital Signs: 12:18 BP 126 / 62; Pulse 102; Resp 18 S; Temp 98.6(O); Pulse Ox 90% on R/A; Weight 112.94 kg kc6 (R); Height 5 ft. 5 in. (R); Pain 10/10; 12:56 Pulse 95; Pulse Ox 98% on 2 lpm NC; kc6 13:58 BP 133 / 69; Pulse 90; Resp 18 S; Pulse Ox 95% on 2 lpm NC; kc6 14:51 BP 142 / 73; Pulse 89; Resp 16 S; Pulse Ox 98% on R/A; kc6 15:26 BP 129 / 68; Pulse 90; Resp 16 S; Pulse Ox 97% on 2 lpm NC; kc6 17:54 BP 126 / 61; Pulse 85; Resp 17 S; Pulse Ox 99% on 2 lpm NC; kc6 12:18 Body Mass Index 41.44 (112.94 kg, 165.1 cm) [facility] 12:18 Pain Scale: Adult kc MDM: 12:15 Medical Screening Exam initiated rn 16:52 Differential diagnosis: DJD, tendonitis, Worsening cancer pain, bony metastasis, rn subclavian clot. Data reviewed: vital signs, nurses notes, lab test result(s), radiologic studies, CT scan, plain films, and as a result, I will discharge patient. Counseling: I had a detailed discussion with the patient and/or guardian regarding the historical points, exam findings, and any diagnostic results supporting the discharge/admit diagnosis, lab results, radiology results, the need for outpatient follow up, to return to the emergency department if symptoms worsen or persist or if there are any questions or concerns that arise at home. Response to treatment: the patient's symptoms have markedly improved after treatment, and as a result, I will discharge patient. Special discussion: I discussed with the patient/guardian in detail that at this point there is no indication for admission to the hospital. It is understood, however, that if the symptoms persist or worsen the patient needs to return immediately for re-evaluation. ED course: No acute findings on workup. No evidence of PE or subclavian clot. Patient already on blood thinners. Most likely worsening of cancer with bony metastasis and radiated pain. Patient has to follow-up with her cancer doctor. Already on gabapentin and prescription pain medication. Currently pain is controlled. Will put in sling and discharge. Has physical therapy coming to her home tomorrow.. 12 12:16 Order name: Basic Metabolic Panel; Complete Time: 13:35 rn 08/09 12:16 Order name: CBC with Diff; Complete Time: 13:35 rn 12 12:16 Order name: NT PRO-BNP; Complete Time: 13:35 rn 12 12:16 Order name: Troponin HS; Complete Time: 13:35 rn 08/09 12:16 Order name: XRAY Chest (1 view); Complete Time: 15:51 rn 08/09 12:16 Order name: XRAY Shoulder LEFT 2 view; Complete Time: 16:10 rn 1216 12:16 Order name: CT Chest For PE Angio; Complete Time: 15:09 rn 16 12:16 Order name: Cardiac monitoring; Complete Time: 12:51 rn 1216 12:16 Order name: EKG - Nurse/Tech; Complete Time: 12:51 rn 08/09 12:16 Order name: IV Saline Lock; Complete Time: 12:51 rn 08/09 12:16 Order name: Labs collected and sent; Complete Time: 12:51 rn 16 12:16 Order name: O2 Per Protocol; Complete Time: 12:20 rn 1216 12:16 Order name: O2 Sat Monitoring; Complete Time: 12:20 rn EC:50 Rate is 94 beats/min. Rhythm is regular. QRS [place] is Normal. NC interval is normal. QRS rn interval is normal. QT interval is normal. No Q waves. T waves are Normal. No ST changes noted. Clinical impression: Normal ECG. Interpreted by me. Reviewed by me. Administered Medications: 12:51 Drug: HYDROcodone-acetaminophen PO 5 mg-325 mg 1 tabs PO once Route: PO; kc6 13:58 Follow up: Response: No adverse reaction; RASS: Alert and Calm (0) kc6 Disposition Summary: 08/09/24 16:54 Discharge Ordered Notes: Location: Home rn Problem: an ongoing problem rn Symptoms: have improved rn Condition: Stable rn Diagnosis - Metastatic lung cancer rn - Pain in left shoulder rn Followup: rn - With: Private Physician - When: As needed - Reason: Recheck today's complaints, Re-evaluation by your physician Discharge Instructions: - Discharge Summary Sheet rn - Musculoskeletal Pain rn - Bone Metastasis rn - Lung Cancer rn - Metastatic Cancer rn Forms: - Medication Reconciliation Form rn - Antibiotic morning show producer - Prescription Opioid Use rn - Patient Portal Instructions rn - Leadership Thank You Letter rn Signatures: Dispatcher [employer] EDMS Cory Garcia MD MD rn Campbell, Kaitlyn, RN RN kc6 Corrections: (The following items were deleted from the chart) 12:17 12:17 BASIC METABOLIC PANEL+C.LAB.BRZ ordered. EDMS EDMS 12:17 12:17 CBC+H.LAB.BRZ ordered. EDMS EDMS 12:17 12:17 PROBNP+C.LAB.BRZ ordered. EDMS EDMS 12:17 12:17 Troponin High Sensitivity+C.LAB.BRZ ordered. EDMS EDMS 12:17 12:17 Chest Single View+RAD.RAD.BRZ ordered. EDMS EDMS 12:17 12:17 Shoulder Left 2 View+RAD.RAD.BRZ ordered. EDMS EDMS 12:17 12:17 Chest For PE Angio+CT.RAD.BRZ ordered. EDMS EDMS
[2024-08-09 18:09] VITALS: TEMP 98.6
[2024-08-09 18:24] VITALS: BP 126/61; O2SAT 99
--- NOTE | 2024-08-12 11:37 | EKG ---
Test Date: 2024-08-09 Test Time: 12:40:03 Residential Care Facility Manager: AM MEASUREMENT RESULTS: Intervals: Rate: 94 AL: 154 QRSD: 84 QT: 356 QTc: 445 [place]: P: 25 AL: 154 QRS: 25 T: 35 INTERPRETIVE STATEMENTS: Normal sinus rhythm Normal ECG Compared to ECG 07/06/2024 15:52:30 Sinus tachycardia no longer present Myocardial infarct finding no longer present Electronically Signed On 08-12-24 11:36:23 DISCOVERY MANAGER by Chucky Pelaez
== END 2024-08-09 17:55 | disposition home or self-care (01) ==
LOC: ER 12:09
DX: C79.51 Secondary malignant neoplasm of bone (principal); C34.92 Malignant neoplasm of unspecified part of left bronchus or lung; I10 Essential (primary) hypertension; J44.9 Chronic obstructive pulmonary disease, unspecified
CPT/HCPCS: 85025; 80048; 36415; 84484; 83880; 71275; 71045; 73030; 99285; Q9967; 93005

== ENCOUNTER 2024-08-29 20:12 | Emergency (ER) | payer OTHER ==
[2024-08-29 20:30] LABS: Absolute Basophils 0.1 K/uL (0-0.5); Absolute Lymphocytes (CBC) 0.9 K/uL (0.7-4.9); Absolute Monocytes 0.3 K/uL (0.1-1.3); Absolute Neutrophil 8.6 K/uL (1.8-8.0); Basophils % 0.6 % (0-1.3); Eosinophils % 0.1 % (0-4.4); Hematocrit 33.8 % (36.0-45.0); Hemoglobin 11.2 g/dL (12.0-15.0); Lymphocytes % 9.4 % (15.3-44.8); MCH 30.7 pg (27.0-35.0); MCHC 33.1 g/dL (32.0-36.0); MCV 92.8 fL (80-100); Monocytes % 2.7 % (3.3-12.3); Neutrophils % 87.2 % (41.7-73.7); Nucleated Red Blood Cells % 0.1 % (0-0); Platelets 278 thou/uL (152-406); RBC Red Blood Cell Count 3.64 M/uL (3.86-4.86); Red Cell Distribution Width 15.4 % (12.1-15.2)
[2024-08-29 20:58] LABS: ALT/SGPT 19 U/L (13-56); AST/SGOT 32 U/L (15-37); Albumin/Globulin Ratio 0.7 (1.1-1.8); Alkaline Phosphatase 147 U/L (45-117); Anion Gap 10.3 mEq/L (5.0-15.0); BUN Blood Urea Nitrogen 9 mg/dL (7-18); Bicarbonate 28 mEq/L (21-32); Bilirubin Total 0.5 mg/dL (0.2-1.0); Globulin 4.3 g/dL (2.3-3.5); Glomerular Filtration Rate 98 ml/min (=/>90); Glucose Level 96 mg/dL (74-106); NT PRO-BNP 91 pg/mL (<125); Potassium 3.3 mEq/L (3.5-5.1); Protein, Total 7.3 g/dL (6.4-8.2); Sodium Level 131 mEq/L (136-145); Troponin High Sensitivity 4.3 pg/mL (<58.9)
[2024-08-29 20:59] LABS: Bilirubin Direct < 0.2 mg/dL (0-0.2); Bilirubin Indirect, Calculated 0.3 mg/dL (0.2-0.8)
[2024-08-29 21:09] LABS: Band Neutrophils 1 % (0-1); Differential Total Cells Count 100; Lymphocytes 9 % (15-42); Monocytes 3 % (0-10); Segmented Neutrophils 87 % (40-80)
[2024-08-29 21:10] LABS: Blood Morphology Comment NOT SEEN (NOT SEEN); Platelet Estimate ADEQ
--- NOTE | 2024-08-29 21:48 | RAD REPORT ---
Procedure: Chest Single View HISTORY: Chest pain COMPARISON: July 2024 FINDINGS: Left upper lobe nodule unchanged. Mild left basilar opacities unchanged probably atelectasis. Right lung appears clear of acute infiltrate. No significant pleural effusion noted. The heart is normal size.. IMPRESSION:
--- NOTE | 2024-08-29 22:05 | EDPHYS ---
Physician Documentation [facility] Name: Kaylah Roper Age: 73 yrs Sex: Female : 1950 Arrival Date: 08/29/2024 Time: 20:12 Bed 19 Private MD: ED Physician Shahid Rowe HPI: 08/29 20:27 This 73 yrs old Black Female presents to ER via EMS with complaints of Chest Pain. rt 20:27 Patient with history of lung cancer, with chronic left-sided chest pain presents to the rt ED with a worsening of the chest pain starting today lasting throughout the day. States that the pain has improved back to the baseline level. Pain is of the same nature just more intense. She does finally have a fentanyl patch on. Denies shortness of breath, leg swelling. States that she is on Xarelto. Denies other acute complaints, symptoms are moderate in severity, no other aggravating or alleviating factors.. Historical: - Allergies: 20:20 No Known Allergies; cp4 - PMHx: 20:20 bone cancer (rib fractures); DVTleft leg; COPD; Hypertensive disorder; Lung Cancer; rib cp4 fractures; - PSHx: 20:20 hysterectomy; Ligation of fallopian tube; cp4 - Immunization history:: Adult Immunizations up to date. - Infectious Disease History:: Denies. - Social history:: Smoking status: Patient denies any tobacco usage or history of. - Family history:: not pertinent. ROS: 20:27 Constitutional: Negative for fever, chills, and weight loss, Respiratory: Negative for rt shortness of breath, cough, wheezing, and pleuritic chest pain, Abdomen/GI: Negative for abdominal pain, nausea, vomiting, diarrhea, and constipation, MS/Extremity: Negative for injury and deformity, Skin: Negative for injury, rash, and discoloration, Neuro: Negative for headache, weakness, numbness, tingling, and seizure, 20:27 Cardiovascular: Positive for chest pain, Negative for edema, Exam: 20:28 Constitutional: This is a well developed, well nourished patient who is awake, alert, rt and in no acute distress. Head/Face: Normocephalic, atraumatic. Chest/axilla: Normal chest wall appearance and motion. Nontender with no deformity. No lesions are appreciated. Cardiovascular: Regular rate and rhythm with a normal S1 and S2. No gallops, murmurs, or rubs. Normal PMI, no JVD. No pulse deficits. Respiratory: Lungs have equal breath sounds bilaterally, clear to auscultation and percussion. No rales, rhonchi or wheezes noted. No increased work of breathing, no retractions or nasal flaring. Abdomen/GI: Soft, non-tender, with normal bowel sounds. No distension or tympany. No guarding or rebound. No evidence of tenderness throughout. Skin: Warm, dry with normal turgor. Normal color with no rashes, no lesions, and no evidence of cellulitis. MS/ Extremity: Pulses equal, no cyanosis. Neurovascular intact. Full, normal range of motion. Neuro: Awake and alert, GCS 15, oriented to person, place, time, and situation. Cranial nerves II-XII grossly intact. Motor strength 5/5 in all extremities. Sensory grossly intact. Cerebellar exam normal. Normal gait. Vital Signs: 20:17 BP 132 / 83; Pulse 106; Resp 20; Temp 98.2; Pulse Ox 100% on 2 lpm NC; Weight 99.79 kg; cp4 Height 5 ft. 5 in. ; Pain 2/10; 21:22 BP 125 / 68; Pulse 103; Resp 20; Pulse Ox 95% on 2 lpm NC; cp4 22:17 BP 111 / 57; Pulse 106; Resp 20; Pulse Ox 98% on 2 lpm NC; cp4 23:04 BP 124 / 85; Pulse 107; Resp 20; Pulse Ox 98% on 2 lpm NC; cp4 20:17 Body Mass Index 36.61 (99.79 kg, 165.1 cm) cp4 20:17 Pain Scale: Adult cp4 MDM: 20:17 Medical Screening Exam initiated rt 22:55 Differential diagnosis: ACS, metastatic cancer pain, pneumonia, pneumothorax. Data rt reviewed: vital signs, nurses notes, lab test result(s), EKG, radiologic studies. Consideration of Admission/Observation Escalation of care including admission/observation considered. This is a worsening of the patient's chronic pain, likely due to cancer. Patient has no acute ischemic changes on the EKG, negative troponin. Given that this pain has been present all day, believe that 1 set of enzymes is sufficient to rule out acute coronary syndrome, do not believe this requires workup for further investigation at this time. Will treat patient's pain, follow-up with her oncologist as an outpatient.. I considered the following discharge prescriptions or medication management in the emergency department Medications were administered in the Emergency Department. See MAR. Independent interpretation of the following test(s) in the Emergency Department X-Ray: My interpretation is No pneumonia seen on my interpretation of x-ray images. Test considered but Not performed: CT: Discussed CT angiogram to rule pulmonary embolus with the patient. Patient is on anticoagulants currently. Patient states that she has had multiple CT scans, which to forego CT scan, shared decision-making was employed, will avoid CT scan at this time, believe that DVT PE is less likely given anticoagulation.. Care significantly affected by the following chronic conditions: Metastatic breast cancer. Counseling: I had a detailed discussion with the patient and/or guardian regarding the historical points, exam findings, and any diagnostic results supporting the discharge/admit diagnosis, lab results, radiology results, the need for outpatient follow up, to return to the emergency department if symptoms worsen or persist or if there are any questions or concerns that arise at home. Response to treatment: the patient's symptoms have mildly improved after treatment. 22:57 HEART Score: History: Slightly Suspicious (0), ECG: Normal (0), Age: > or = 65 years rt (2), Risk Factors: 1 or 2 risk factors (1), Troponin: < or = 1 x Normal Limit (0), Total Score = 3. 08/29 20:17 Order name: Basic Metabolic Panel; Complete Time: 21:15 rt 08/29 20:17 Order name: CBC with Diff; Complete Time: 21:15 rt 08/29 20:17 Order name: LFT's; Complete Time: 21:15 rt 08/29 20:17 Order name: NT PRO-BNP; Complete Time: 21:15 rt 08/29 20:17 Order name: Troponin HS; Complete Time: 21:15 rt 08/29 20:34 Order name: Manual Differential; Complete Time: 21:15 EDMS 08/29 20:17 Order name: XRAY Chest (1 view); Complete Time: 21:58 rt 08/29 20:17 Order name: EKG; Complete Time: 20:18 rt 08/29 20:17 Order name: Cardiac monitoring; Complete Time: 20:28 rt 08/29 20:17 Order name: EKG - Nurse/Tech; Complete Time: 20:28 rt 08/29 20:17 Order name: IV Saline Lock; Complete Time: :28 rt 08/29 20:17 Order name: Labs collected and sent; Complete Time: 20:28 rt 08/29 20:17 Order name: O2 Per Protocol; Complete Time: 20:28 rt 08/29 20:17 Order name: O2 Sat Monitoring; Complete Time: 20:28 rt Administered Medications: 22:56 Drug: [place] PO 10 mg-325 mg 1 tabs PO once Route: PO; cp4 22:56 Follow up: Response: No adverse reaction cp4 Disposition Summary: 08/29/24 22:04 Discharge Ordered Notes: Location: Home rt Problem: an ongoing problem rt Symptoms: have improved rt Condition: Stable rt Diagnosis - Chest pain due to metastatic breast cancer rt Followup: rt - With: Private Physician - When: 2 - 3 days - Reason: Discharge Instructions: - Discharge Summary Sheet rt - Breast Cancer, Female rt - Nonspecific Chest Pain, Adult, [id number] rt Forms: - Medication Reconciliation Form rt - Antibiotic Education rt - Prescription Opioid Use rt - Patient Portal Instructions rt - Leadership Thank You Letter rt - SBAR form rv1 Signatures: Dispatcher [employer] EDShahid Levy MD MD rt Violeta Marte cp4 Corrections: (The following items were deleted from the chart) 20:18 20:18 BASIC METABOLIC PANEL+C.LAB.BRZ ordered. EDMS EDMS 20:18 20:18 CBC+H.LAB.BRZ ordered. EDMS EDMS 20:18 20:18 HEPATIC FUNCTION+C.LAB.BRZ ordered. EDMS EDMS 20:18 20:18 PROBNP+C.LAB.BRZ ordered. EDMS EDMS 20:18 20:18 Troponin High Sensitivity+C.LAB.BRZ ordered. EDMS EDMS
--- NOTE | 2024-08-29 22:05 | ER ---
Nurse's Notes [facility] Name: Kaylah Roper Age: 73 yrs Sex: Female : 1950 Arrival Date: 08/29/2024 Time: 20:12 Bed 19 Private MD: Diagnosis: Chest pain due to metastatic breast cancer Presentation: 08/29 20:17 Chief complaint: EMS states: chest pain that is worse than normal. Is being treated cp4 with chemo for lung cancer. Coronavirus screen: Client denies travel out of the [place] in the last 14 days. At this time, the client does not indicate any symptoms associated with coronavirus-19. Ebola Screen: Patient negative for fever greater than or equal to 101.5 degrees Fahrenheit, and additional compatible Ebola Virus Disease symptoms Patient denies exposure to infectious person. Patient denies travel to an Ebola-affected area in the 21 days before illness onset. No symptoms or risks identified at this time. Initial Sepsis Screen: Does the patient meet any 2 criteria? HR > 90 bpm. No. Patient's initial sepsis screen is negative. Does the patient have a suspected source of infection? No. Patient's initial sepsis screen is negative. Risk Assessment: Do you want to hurt yourself or someone else? Patient reports no desire to harm self or others. Onset of symptoms was August 29, 2024. 20:17 Method Of Arrival: EMS: [facility] 20:17 Acuity: JASPER 3 cp4 Triage Assessment: 20:20 General: Appears in no apparent distress. uncomfortable, Behavior is calm, cooperative, cp4 appropriate for age. Pain: Complains of pain in chest Pain does not radiate. Pain currently is 2 out of 10 on a pain scale. EENT: No signs and/or symptoms were reported regarding the EENT system. Neuro: Level of Consciousness is awake, alert, obeys commands, Oriented to person, place, time, situation. Cardiovascular: Patient's skin is warm and dry. Rhythm is. Respiratory: Airway is patent Respiratory effort is even, unlabored. GI: No signs and/or symptoms were reported involving the gastrointestinal system. : No signs and/or symptoms were reported regarding the genitourinary system. Derm: No signs and/or symptoms reported regarding the dermatologic system. Musculoskeletal: No signs and/or symptoms reported regarding the musculoskeletal system. Historical: - Allergies: 20:20 No Known Allergies; cp4 - PMHx: 20:20 bone cancer (rib fractures); DVTleft leg; COPD; Hypertensive disorder; Lung Cancer; rib cp4 fractures; - PSHx: 20:20 hysterectomy; Ligation of fallopian tube; cp4 - Immunization history:: Adult Immunizations up to date. - Infectious Disease History:: Denies. - Social history:: Smoking status: Patient denies any tobacco usage or history of. - Family history:: not pertinent. Screenin:22 [facility] ED Fall Risk Assessment (Adult) History of falling in the last 3 months, cp4 including since admission No falls in past 3 months (0 pts) Confusion or Disorientation No (0 pts) Intoxicated or Sedated No (0 pts) Impaired Gait No (0 pts) Mobility Assist Device Used No (0 pt) Altered Elimination No (0 pt) Score/Fall Risk Level 0 - 2 = Low Risk Oriented to surroundings, Maintained a safe environment, Assessed \T\ reinforced patient's understanding of fall precautions, Hourly rounding (assess needs \T\ fall precautionary measures) done. Abuse screen: Denies threats or abuse. Nutritional screening: No deficits noted. Tuberculosis screening: No symptoms or risk factors identified. Assessment: 20:22 Reassessment: No changes from previously documented assessment. Patient has fentanyl cp4 patch on chest. Pain: Pain began gradually. Pain: Complains of pain in chest Pain does not radiate. Pain currently is 2 out of 10 on a pain scale. 22:12 Reassessment: Disposition pending transportation home by EMS. cp4 Vital Signs: 20:17 BP 132 / 83; Pulse 106; Resp 20; Temp 98.2; Pulse Ox 100% on 2 lpm NC; Weight 99.79 kg; cp4 Height 5 ft. 5 in. ; Pain 2/10; 21:22 BP 125 / 68; Pulse 103; Resp 20; Pulse Ox 95% on 2 lpm NC; cp4 22:17 BP 111 / 57; Pulse 106; Resp 20; Pulse Ox 98% on 2 lpm NC; cp4 23:04 BP 124 / 85; Pulse 107; Resp 20; Pulse Ox 98% on 2 lpm NC; cp4 20:17 Body Mass Index 36.61 (99.79 kg, 165.1 cm) cp4 20:17 Pain Scale: Adult cp4 ED Course: 20:13 Patient arrived in ED. vk 20:17 Shahid Rowe MD is Attending Physician. rt 20:17 Violeta Marte is Primary Nurse. cp4 20:20 Triage completed. cp4 20:20 Arm band placed on right wrist. Patient placed in an exam room, on a stretcher. cp4 20:22 Bed in low position. Call light in reach. Side rails up X2. Client placed on continuous cp4 cardiac and pulse oximetry monitoring. NIBP monitoring applied. secured entrance monitor on. Pulse ox on. NIBP on. 20:22 No provider procedures requiring assistance completed. Inserted saline lock: 20 gauge cp4 in right antecubital area, using aseptic technique. Blood collected. Flushed with 10 mL NS. Oxygen administration via nasal cannula \T\ 2L/min. 20:32 Warm blanket given. Pillow given. socks given. vk 21:19 XRAY Chest (1 view) In Process Unspecified. EDMS 22:57 Provided Education on: breast cancer and chest pain. cp4 22:57 intact, bleeding controlled, No redness/swelling at site. Pressure dressing applied. cp4 Administered Medications: 22:56 Drug: Avon PO 10 mg-325 mg 1 tabs PO once Route: PO; cp4 22:56 Follow up: Response: No adverse reaction cp4 Medication: 20:22 VIS not applicable for this client. cp4 Outcome: 22:04 Discharge ordered by . rt 22:57 Discharged to home via ambulance, cp4 22:57 Condition: stable 22:57 Discharge instructions given to patient, family, Instructed on discharge instructions, follow up and referral plans. Demonstrated understanding of instructions, follow-up care, 23:11 Patient left the ED. cp4 Signatures: Dispatcher [employer] EDIA Shahid Rowe MD MD rt Violeta Marte cp4 Leslie Dillon
[2024-08-29] MEDS ORDERED: HYDROCODONE/APAP 10/325 TAB ONE (22:51)
[2024-08-29 23:20] VITALS: TEMP 98.2
[2024-08-29 23:24] VITALS: O2SAT 98
[2024-08-29 23:26] VITALS: BP 124/85
--- NOTE | 2024-09-06 11:11 | EKG ---
Test Date: 2024-08-29 Test Time: 20:27:10 Office Copy Selector: GT MEASUREMENT RESULTS: Intervals: Rate: 104 WY: 148 QRSD: 84 QT: 340 QTc: 447 [place]: P: 29 WY: 148 QRS: 14 T: 37 INTERPRETIVE STATEMENTS: Sinus tachycardia Cannot rule out Anterior infarct, age undetermined Abnormal ECG Compared to ECG 08/09/2024 12:40:03 Myocardial infarct finding now present Sinus rhythm no longer present Electronically Signed On 09-06-24 11:00:48 RO[address] TRAFFIC CONTROLLER by Chucky Pelaez
== END 2024-08-29 23:11 | disposition home or self-care (01) ==
LOC: ER 20:12
DX: G89.3 Neoplasm related pain (acute) (chronic) (principal); C78.02 Secondary malignant neoplasm of left lung; C41.9 Malignant neoplasm of bone and articular cartilage, unspecified; Z86.718 Personal history of other venous thrombosis and embolism; Z79.01 Long term (current) use of anticoagulants
CPT/HCPCS: 36415; 71045; 80048; 80076; 83880; 84484; 85025; 93005; 99285

== ENCOUNTER 2024-08-30 16:22 | Emergency (ER) | payer OTHER ==
[2024-08-30] MEDS ORDERED: PROMETHAZINE INJ 25 MG/ML AMP ONE ×2 (17:33→20:07)
[2024-08-30 17:34] LABS: Absolute Lymphocytes (CBC) 0.9 K/uL (0.7-4.9); Absolute Monocytes 0.2 K/uL (0.1-1.3); Absolute Neutrophil 8.3 K/uL (1.8-8.0); Basophils % 0.3 % (0-1.3); Eosinophils % 0.3 % (0-4.4); Hematocrit 32.7 % (36.0-45.0); Hemoglobin 10.9 g/dL (12.0-15.0); Lymphocytes % 9.9 % (15.3-44.8); MCH 30.9 pg (27.0-35.0); MCHC 33.3 g/dL (32.0-36.0); MCV 92.7 fL (80-100); MPV 7.6 fL (7.6-11.3); Monocytes % 2.4 % (3.3-12.3); Neutrophils % 87.1 % (41.7-73.7); Nucleated Red Blood Cells % 0.1 % (0-0); Platelets 295 thou/uL (152-406); RBC Red Blood Cell Count 3.53 M/uL (3.86-4.86); Red Cell Distribution Width 15.6 % (12.1-15.2)
[2024-08-30] MEDS ORDERED: NA CHLORIDE 0.9% 1,000 ML ONE ×2 (17:34→21:33)
[2024-08-30 17:47] LABS: Specific Gravity 1.028 (1.005-1.030); Sqamous Epithelial <5 /HPF (None Seen); Urine Bacteria None Seen /HPF (<20); Urine Bilirubin NEGATIVE (Negative); Urine Blood Negative (Negative); Urine Clarity Clear (Clear); Urine Color Yellow (Yellow); Urine Culture Reflex Order NOT NEEDED; Urine Glucose NEGATIVE (Negative); Urine Ketones NEGATIVE (Negative); Urine Microscopic Reflex YN ORDER UMIC; Urine Mucus Slight /HPF (None Seen); Urine Nitrite NEGATIVE (Negative); Urine Protein TRACE (Negative); Urine RBC <5 /HPF (None Seen); Urine Urobilinogen 1+ (Normal); Urine WBC <5 /HPF (<5); Urine Yeast (Budding) Trace /HPF (None Seen); Urine pH 6.5 (5.0-7.0)
[2024-08-30 17:58] LABS: Albumin 2.9 g/dL (3.4-5.0); Albumin/Globulin Ratio 0.6 (1.1-1.8); Anion Gap 11.3 mEq/L (5.0-15.0); Bilirubin Total 0.5 mg/dL (0.2-1.0); Globulin 4.5 g/dL (2.3-3.5); Platelet Estimate ADEQ; Potassium 3.3 mEq/L (3.5-5.1); Protein, Total 7.4 g/dL (6.4-8.2); White Blood Cell Scan OK (OK)
[2024-08-30 17:59] LABS: Blood Morphology Comment NOT SEEN (NOT SEEN)
--- NOTE | 2024-08-30 19:07 | EDPHYS ---
Physician Documentation [facility] Name: Kaylah Roper Age: 73 yrs Sex: Female : 1950 Arrival Date: 08/30/2024 Time: 16:22 Bed 16 Private MD: ED Physician Frieda Cramer HPI: 08/30 17:07 This 73 yrs old Black Female presents to ER via EMS with complaints of Nausea/Vomiting. dr5 17:07 The patient presents to the emergency department with nausea, that is moderate, dr5 vomiting, 1 times since the onset of symptoms. Patient is a 73-year-old female with history of COPD, lung cancer that restarted chemotherapy on August 26, 2024 at the cancer center in [place]. Patient reports she had 1 episode of vomiting this morning. Patient reports that she is on multiple pain medications and last bowel movement was on Friday. Patient does report she is taking stool softeners and is not passing gas.. Historical: - Allergies: 16:40 glycopyrrolate; me1 16:40 formoterol fumarate; me1 16:40 budesonide; me1 - PMHx: 16:40 bone cancer (rib fractures); COPD; DVTleft leg; Hypertensive disorder; Lung Cancer; rib me1 fractures; - PSHx: 16:40 hysterectomy; Ligation of fallopian tube; me1 - Immunization history:: Adult Immunizations up to date. - Infectious Disease History:: Denies. - Social history:: Smoking status: Patient/guardian denies using tobacco, but has a distant history of tobacco abuse. ROS: 17:07 Constitutional: as per hpi dr5 Exam: 17:07 Constitutional: This is a well developed, well nourished patient who is awake, alert, dr5 and in no acute distress. Head/Face: Normocephalic, atraumatic. Eyes: Pupils equal round and reactive to light, extra-ocular motions intact. Lids and lashes normal. Conjunctiva and sclera are non-icteric and not injected. Cornea within normal limits. Periorbital areas with no swelling, redness, or edema. Neck: Trachea midline, no thyromegaly or masses palpated, and no cervical lymphadenopathy. Supple, full range of motion without nuchal rigidity, or vertebral point tenderness. No Meningismus. Chest/axilla: Normal chest wall appearance and motion. Nontender with no deformity. No lesions are appreciated. Cardiovascular: Regular rate and rhythm with a normal S1 and S2. Normal PMI, no JVD. No pulse deficits. Respiratory: Lungs have equal breath sounds bilaterally, clear to auscultation. No rales, rhonchi or wheezes noted. No increased work of breathing, no retractions or nasal flaring. Back: No spinal tenderness. No costovertebral tenderness. Full range of motion. Skin: Warm, dry with normal turgor. Normal color with no rashes, no lesions, and no evidence of cellulitis. MS/ Extremity: Pulses equal, no cyanosis. Neurovascular intact. Full, normal range of motion. Neuro: Awake and alert, GCS 15, oriented to person, place, time, and situation. Cranial nerves II-XII grossly intact. Motor strength 5/5 in all extremities. Sensory grossly intact. Cerebellar exam normal. Normal gait. 17:07 ENT: 17:07 Abdomen/GI: Inspection: abdomen appears normal, Bowel sounds: normal, Palpation: abdomen is soft and non-tender, in all quadrants, Vital Signs: 16:32 BP 133 / 73; Pulse 95; Resp 17; Temp 97.1; Pulse Ox 100% on 2 lpm NC; Weight 108.86 kg; me1 Height 5 ft. 5 in. ; Pain 0/10; 17:00 BP 127 / 74; Pulse 95; Resp 18; Pulse Ox 98% on 2 lpm NC; me1 18:00 BP 132 / 87; Pulse 95; Resp 18; Pulse Ox 100% on 2 lpm NC; me1 19:43 BP 121 / 96; Pulse 96; Resp 18; Pulse Ox 97% on R/A; me1 20:00 BP 144 / 68; Pulse 102; Resp 19; Pulse Ox 98% on 2 lpm NC; me1 21:00 BP 150 / 90; Pulse 100; Resp 18; Pulse Ox 97% on 2 lpm NC; me1 22:00 BP 129 / 70; Pulse 99; Resp 18; Pulse Ox 97% on 2 lpm NC; rg5 23:00 BP 127 / 63; Pulse 95; Resp 18; Pulse Ox 98% on 2 lpm NC; rg5 08/31 00:22 BP 144 / 68; Pulse 95; Resp 17; Temp 98; Pulse Ox 97% on 2 lpm NC; Pain 0/10; rg5 01:43 BP 129 / 71; Pulse 90; Resp 18; Pulse Ox 100% on 2 lpm NC; Pain 0/10; rg5 08/30 16:32 Body Mass Index 39.94 (108.86 kg, 165.1 cm) me1 08/30 16:32 Pain Scale: Adult me1 08/31 00:22 Pain Scale: Adult rg5 01:43 Pain Scale: Adult rg5 Yesenia Coma Score: 08/30 22:00 Eye Response: spontaneous(4). Motor Response: obeys commands(6). Verbal Response: rg5 oriented(5). Total: 15. MDM: 17:00 Medical Screening Exam initiated dr5 19:08 Differential diagnosis: Nonspecific abd pain, viral gastroenteritis, gastroenteritis, dr5 Chemo induced nausea. Data reviewed: vital signs, nurses notes, lab test result(s). Historians other than the Patient: Spouse/Significant Other: . Care significantly affected by the following chronic conditions: Lung cancer, COPD, hypertension. Care significantly affected by the following Social Determinants of Health: Poor access to healthcare and/or lack of insurance, Poor access to transportation, Problems related to employment. Counseling: I had a detailed discussion with the patient and/or guardian regarding the historical points, exam findings, and any diagnostic results supporting the discharge/admit diagnosis, the presence of at least one elevated blood pressure reading (>120/80) during this emergency department visit, lab results, the need for outpatient follow up, for definitive care, a family practitioner, a depilatory painter, Oncologist. Medication response: Phenergan relieved the patient's nausea. ED course: Patient's nausea and vomiting has resolved. Patient is feeling much better with no complaints. Patient reports mild constipation and will give medications for that. Patient is on opiates chronically which is likely due to constipation. Mild hypokalemia - will give PO. PO challenge passed. Recommended following up this week with oncologist and primary care doctor. Return to ER for worsening conditions. All questions answered. Patient is agreeable to plan. 20:57 ED course: Patient was initially feeling better. Tempted to give 40 mill equivalents of dr5 potassium but patient vomited immediately afterwards. Patient is reporting increased abdominal pain and reports she is no longer passing gas. Patient needs CT abdomen pelvis to rule out small bowel obstruction. CT scan is not available at [facility] at this time. Patient will be admitted for intractable nausea / vomiting and CT scan for small bowel obstruction rule out.. 22:03 ED course: Will transfer patient for intractable vomiting.. dr5 08/31 01:10 ED course: Will transfer patient to [facility] to Dr. Evans in the ER for dr5 admission and CT scan.. ED course: Attempted to give patient water with vomiting. Pt complaining of abdominal pain. Will give patient another dose of morphine / zofran.. 08/30 17:06 Order name: CBC with Diff; Complete Time: 18:01 dr5 08/30 17:06 Order name: CMP; Complete Time: 18: dr5 08/30 17:06 Order name: Urinalysis w/ reflexes; Complete Time: 18: dr5 08/30 17:59 Order name: CBC Smear Scan; Complete Time: 18:01 EDMS 08/30 21:01 Order name: Abdomen 1 View (KUB) XRAY dr5 Administered Medications: 08/30 17:41 Drug: NS 0.9% IV 1000 ml IV at 1000 ml once; to be given as a bolus over 60 minutes me1 Route: IV; Rate: 1000 ml; Site: right antecubital; 18:44 Follow up: Response: No adverse reaction; IV Status: Completed infusion; IV Intake: me1 1000ml 17:41 Drug: Promethazine IVP 25 mg IVP once Route: IVP; Site: right antecubital; me1 18:00 Follow up: Response: No adverse reaction; Nausea is decreased me1 19:27 Drug: Potassium Chloride PO 40 mEq PO once Route: PO; me1 19:36 Follow up: Response: Vomiting increased me1 19:43 Drug: metoCLOPramide IVP 10 mg IVP once; over 1 to 2 minutes Route: IVP; Site: right me1 antecubital; 20:12 Follow up: Response: No adverse reaction; Nausea unchanged me1 20:13 Drug: Promethazine IVP 25 mg IVP once Route: IVP; Site: right antecubital; me1 21:18 Follow up: Response: No adverse reaction; Nausea is decreased me1 21:39 Drug: morphine IVP or IV 4 mg IVP once over 4 mins Route: IVP; Infused Over: 4 mins; me1 Site: right antecubital; 22:27 Follow up: Response: No adverse reaction; Pain is decreased rg5 21:39 Drug: Ondansetron IVP 4 mg IVP once; over 2 minutes Route: IVP; Site: right antecubital;me1 22:27 Follow up: Response: No adverse reaction rg5 22:06 Drug: NS 0.9% IV 1000 ml IV at 125 ml/hr once; to be given as a bolus over 60 minutes rg5 Route: IV; Rate: 125 ml/hr; Site: right antecubital; 08/31 02:02 Follow up: IV Status: Infusion continued upon transfer; IV Intake: 800ml rg5 01:07 Drug: morphine IVP or IV 4 mg IVP once over 4 mins Route: IVP; Infused Over: 4 mins; rg5 Site: right antecubital; 01:43 Follow up: Response: No adverse reaction; Pain is decreased rg5 01:07 Drug: Ondansetron IVP 4 mg IVP once; over 2 minutes Route: IVP; Site: right antecubital;rg5 01:42 Follow up: Response: No adverse reaction rg5 Disposition: 08/30 20:35 Co-signature as Attending Physician, Frieda Cramer MD I reviewed the patient's care gb1 provided by the Advanced Practice Provider and agree with the diagnosis and treatment plan. Disposition Summary: 08/30/24 22:31 Transfer Ordered Notes: Transfer Location: Other [facility] dr5 Reason: Higher level of care dr5 Condition: Stable(08/30/24 22:31) dr5 Problem: new dr5 Symptoms: have worsened dr5 Accepting Physician: ED(08/31/24 02:06) rg5 Diagnosis - Cyclical vomiting, intractable dr5 Forms: - Medication Reconciliation Form dr5 - SBAR form dr5 Signatures: Dispatcher [employer] EDMS Mervat Junior RN RN me1 Fireda Cramer MD MD gb1 Jones Ugalde RN RN rg5 Rivera Trevino FNP-C FNP-Cdr5 Corrections: (The following items were deleted from the chart) 19:38 19:06 Home dr5 dr5 19:38 19:06 Stable dr5 dr5 19:38 19:06 Nausea with vomiting, unspecified dr5 dr5 21:01 21:01 Abdomen 1 View (KUB)+[id number].RAD.[email or web address] ordered. EDMS EDMS 21:04 17:07 Patient is a 73-year-old female with history of COPD, lung cancer that restarted dr5 chemotherapy on August 26, 2024 at the cancer center in [place]. Patient reports she had 1 episode of vomiting this morning. Patient reports that she is on multiple pain medications and last bowel movement was on Friday. Patient does report she is taking stool softeners and is passing gas.. dr5 08/31 02:06 08/30 22:31 ED dr5 rg5
--- NOTE | 2024-08-30 19:07 | ER ---
Nurse's Notes [facility] Name: Kaylah Roper Age: 73 yrs Sex: Female : 1950 Arrival Date: 08/30/2024 Time: 16:22 Bed 16 Private MD: Diagnosis: Cyclical vomiting, intractable Presentation: 08/30 16:32 Chief complaint: EMS states: toned out for intractable n/v. patient is a cancer me1 patient, last chemo was 08/26/24. Coronavirus screen: Vaccine status: Patient reports receiving the 2nd dose of the covid vaccine. Ebola Screen: No symptoms or risks identified at this time. Initial Sepsis Screen: Does the patient meet any 2 criteria? HR > 90 bpm. No. Patient's initial sepsis screen is negative. Does the patient have a suspected source of infection? No. Patient's initial sepsis screen is negative. Risk Assessment: Do you want to hurt yourself or someone else? Patient reports no desire to harm self or others. Onset of symptoms was August 29, 2023. Care prior to arrival: Medication(s) given: Normal saline infusion, 500 mL, zofran 4 mg, IV initiated. 20 GA, in the right antecubital area, Oxygen administered. via nasal cannula. 16:32 Method Of Arrival: EMS: [place] [id number] 16:32 Acuity: JASPER 3 me1 Triage Assessment: 16:40 General: Appears uncomfortable, ill, well groomed, well developed, well nourished, me1 Behavior is calm, cooperative, appropriate for age, Reports n/v, cant keep anything down. Pain: Denies pain. EENT: No signs and/or symptoms were reported regarding the EENT system. Neuro: Level of Consciousness is awake, alert, obeys commands, Oriented to person, place, time, situation, Appropriate for age. Cardiovascular: Patient's skin is warm and dry. Respiratory: Reports o2 dependant at 2 lpm via nc. Airway is patent Respiratory effort is even, unlabored, Respiratory pattern is regular, symmetrical, Breath sounds are diminished bilaterally. GI: Reports nausea, vomiting, since yesterday. Chemo tx on 08/26/24, unable to hold anything down since yesterday. : No signs and/or symptoms were reported regarding the genitourinary system. Derm: Skin is intact, is healthy with good turgor, Skin is pink, warm \T\ dry. Musculoskeletal: No signs and/or symptoms reported regarding the musculoskeletal system. Historical: - Allergies: 16:40 glycopyrrolate; me1 16:40 formoterol fumarate; me1 16:40 budesonide; me1 - PMHx: 16:40 bone cancer (rib fractures); COPD; DVTleft leg; Hypertensive disorder; Lung Cancer; rib me1 fractures; - PSHx: 16:40 hysterectomy; Ligation of fallopian tube; me1 - Immunization history:: Adult Immunizations up to date. - Infectious Disease History:: Denies. - Social history:: Smoking status: Patient/guardian denies using tobacco, but has a distant history of tobacco abuse. Screenin:42 [facility] ED Fall Risk Assessment (Adult) History of falling in the last 3 months, me1 including since admission No falls in past 3 months (0 pts) Confusion or Disorientation No (0 pts) Intoxicated or Sedated No (0 pts) Impaired Gait Yes (1 pt) Mobility Assist Device Used Yes (1 pt) Altered Elimination No (0 pt) Score/Fall Risk Level 0 - 2 = Low Risk Maintained a safe environment, Provided non-skid footwear, Hourly rounding (assess needs \T\ fall precautionary measures) done. Abuse screen: Denies threats or abuse. Nutritional screening: No deficits noted. Tuberculosis screening: No symptoms or risk factors identified. Assessment: 16:42 General: See triage assessment.. GI: Reports nausea, vomiting, since yesterday. me1 22:00 General: Appears in no apparent distress. comfortable. rg5 22:00 Neuro: Level of Consciousness is awake, alert, obeys commands. Cardiovascular: Rhythm rg5 is sinus rhythm. Respiratory: Airway is patent Trachea midline Respiratory effort is even, unlabored, Respiratory pattern is regular, symmetrical. GI: Abdomen is round obese, Reports nausea. : No signs and/or symptoms were reported regarding the genitourinary system. EENT: No deficits noted. Derm: Skin is intact, Skin is dry, Skin is normal, Skin temperature is cool. Musculoskeletal: Circulation, motion, and sensation intact. Range of motion: intact in all extremities. 23:00 Reassessment: No changes from previously documented assessment. Patient and/or family rg5 updated on plan of care and expected duration. Pain level reassessed. Patient is alert, oriented x 3, equal unlabored respirations, skin warm/dry/pink. 08/31 00:24 Reassessment: Patient and/or family updated on plan of care and expected duration. Pain rg5 level reassessed. Patient is alert, oriented x 3, equal unlabored respirations, skin warm/dry/pink. Patient states symptoms have improved. 01:44 Reassessment: Patient and/or family updated on plan of care and expected duration. Pain rg5 level reassessed. Patient is alert, oriented x 3, equal unlabored respirations, skin warm/dry/pink. Vital Signs: 08/30 16:32 BP 133 / 73; Pulse 95; Resp 17; Temp 97.1; Pulse Ox 100% on 2 lpm NC; Weight 108.86 kg; me1 Height 5 ft. 5 in. ; Pain 0/10; 17:00 BP 127 / 74; Pulse 95; Resp 18; Pulse Ox 98% on 2 lpm NC; me1 18:00 BP 132 / 87; Pulse 95; Resp 18; Pulse Ox 100% on 2 lpm NC; me1 19:43 BP 121 / 96; Pulse 96; Resp 18; Pulse Ox 97% on R/A; me1 20:00 BP 144 / 68; Pulse 102; Resp 19; Pulse Ox 98% on 2 lpm NC; me1 21:00 BP 150 / 90; Pulse 100; Resp 18; Pulse Ox 97% on 2 lpm NC; me1 22:00 BP 129 / 70; Pulse 99; Resp 18; Pulse Ox 97% on 2 lpm NC; [facility] [place] 23:00 BP 127 / 63; Pulse 95; Resp 18; Pulse Ox 98% on 2 lpm NC; [facility] [place] 08/31 00:22 BP 144 / 68; Pulse 95; Resp 17; Temp 98; Pulse Ox 97% on 2 lpm NC; Pain 0/10; rg5 01:43 BP 129 / 71; Pulse 90; Resp 18; Pulse Ox 100% on 2 lpm NC; Pain 0/10; rg5 08/30 16:32 Body Mass Index 39.94 (108.86 kg, 165.1 cm) [facility] [place] 08/30 16:32 Pain Scale: Adult ca1 08/31 00:22 Pain Scale: Adult 5 01:43 Pain Scale: Adult rg5 Yesenia Coma Score: 08/30 22:00 Eye Response: spontaneous(4). Motor Response: obeys commands(6). Verbal Response: rg5 oriented(5). Total: 15. ED Course: 16:30 Patient arrived in ED. me1 16:40 Triage completed. me1 16:40 Arm band placed on Patient placed in an exam room. me1 16:42 Patient has correct armband on for positive identification. Bed in low position. Call me1 light in reach. Side rails up X2. Provided Education on: POC. Verbalized understanding. Client placed on continuous cardiac and pulse oximetry monitoring. NIBP monitoring applied. Pulse ox on. NIBP on. 16:42 No provider procedures requiring assistance completed. Maintain EMS IV. Dressing me1 intact. Good blood return noted. Site clean \T\ dry. Gauge \T\ site: 20g RAC. Flushed with 10 mL NS. 16:51 Mervat Junior, BRENNAN is Primary Nurse. me1 17:00 Rivera Trevino FNP-C is PHCP. dr5 17:00 Frieda Cramer MD is Attending Physician. dr5 17:15 CMP Sent. bc6 17:15 CBC with Diff Sent. bc6 17:15 Initial lab(s) drawn, by ca, sent to lab. bc6 17:41 Urinalysis w/ reflexes Sent. me1 21:58 Cleaned of incontinence. Assisted nurse. sa1 22:00 Door closed. Noise minimized. Warm blanket given. Verbal reassurance given. rg5 22:22 Abdomen 1 View (KUB) XRAY In Process Unspecified. EDMS 08/31 01:39 initiated transport with [employer] spoke with aureliano patient was accpeted. vk 02:01 Patient transferred, IV remains in place. intact, bleeding controlled, No rg5 redness/swelling at site. Pressure dressing applied. Administered Medications: 08/30 17:41 Drug: NS 0.9% IV 1000 ml IV at 1000 ml once; to be given as a bolus over 60 minutes me1 Route: IV; Rate: 1000 ml; Site: right antecubital; 18:44 Follow up: Response: No adverse reaction; IV Status: Completed infusion; IV Intake: me1 1000ml 17:41 Drug: Promethazine IVP 25 mg IVP once Route: IVP; Site: right antecubital; me1 18:00 Follow up: Response: No adverse reaction; Nausea is decreased me1 19:27 Drug: Potassium Chloride PO 40 mEq PO once Route: PO; me1 19:36 Follow up: Response: Vomiting increased me1 19:43 Drug: metoCLOPramide IVP 10 mg IVP once; over 1 to 2 minutes Route: IVP; Site: right me1 antecubital; 20:12 Follow up: Response: No adverse reaction; Nausea unchanged me1 20:13 Drug: Promethazine IVP 25 mg IVP once Route: IVP; Site: right antecubital; me1 21:18 Follow up: Response: No adverse reaction; Nausea is decreased me1 21:39 Drug: morphine IVP or IV 4 mg IVP once over 4 mins Route: IVP; Infused Over: 4 mins; me1 Site: right antecubital; 22:27 Follow up: Response: No adverse reaction; Pain is decreased rg5 21:39 Drug: Ondansetron IVP 4 mg IVP once; over 2 minutes Route: IVP; Site: right antecubital;me1 22:27 Follow up: Response: No adverse reaction rg5 22:06 Drug: NS 0.9% IV 1000 ml IV at 125 ml/hr once; to be given as a bolus over 60 minutes rg5 Route: IV; Rate: 125 ml/hr; Site: right antecubital; 08/31 02:02 Follow up: IV Status: Infusion continued upon transfer; IV Intake: 800ml rg5 01:07 Drug: morphine IVP or IV 4 mg IVP once over 4 mins Route: IVP; Infused Over: 4 mins; rg5 Site: right antecubital; 01:43 Follow up: Response: No adverse reaction; Pain is decreased rg5 01:07 Drug: Ondansetron IVP 4 mg IVP once; over 2 minutes Route: IVP; Site: right antecubital;rg5 01:42 Follow up: Response: No adverse reaction rg5 Medication: 08/30 16:42 VIS not applicable for this client. me1 Intake: 18:44 IV: 1000ml; Total: 1000ml. me1 08/31 02:02 IV: 800ml; Total: 1800ml. rg5 Outcome: 08/30 19:06 Discharge ordered by MD. dr5 22:31 ER care complete, transfer ordered by . dr5 08/31 02:01 Transferred by ground EMS to [facility], [facility] [place], 5 Condition: stable Instructed on the need for transfer, 02:06 Patient left the ED. rg5 Signatures: Dispatcher [employer] EDAnna Pang bc6 Mervat Junior, RN RN ca1 Leslie Dillon Rommel RN RN rg5 Sultan Quintin [facility] Rivera Trevino, BUSINESS SYSTEMS CONSULTANT-C BUSINESS SYSTEMS CONSULTANT-[facility]5
[2024-08-30] MEDS ORDERED: POTASSIUM CL SA 10 MEQ TAB PO ONE (19:10)
[2024-08-30] MEDS ORDERED: METOCLOPRAMIDE 10 MG/2mL INJ ONE (19:34)
[2024-08-30] MEDS ORDERED: MORPHINE 4 MG/ML SYR ONE (21:32)
[2024-08-30] MEDS ORDERED: ONDANSETRON 4 MG/2 ML VIAL ONE (21:32)
[2024-08-31] MEDS ORDERED: ONDANSETRON 4 MG/2 ML VIAL ONE (00:59)
[2024-08-31] MEDS ORDERED: MORPHINE 4 MG/ML SYR ONE (01:00)
[2024-08-31 02:44] VITALS: TEMP 98
[2024-08-31 02:46] VITALS: BP 129/71; O2SAT 100
--- NOTE | 2024-08-31 06:30 | RAD REPORT ---
EXAM: XR Abdomen, 1 View CLINICAL HISTORY: ABD PAIN TECHNIQUE: Frontal supine view of the abdomen/pelvis. COMPARISON: No relevant prior studies available. FINDINGS: Gastrointestinal tract: Unremarkable. No dilation. Bones/joints: Left hip arthroplasty. No acute fracture. IMPRESSION: Nonobstructive bowel gas pattern. Electronically signed by: Barak Cuellar MD 08/30/2024 11:15 PM SENIOR SEARCH MARKETING ANALYST RP Due to temporary technical issues with the PACS/Tutor Trove reporting system, reports are being rebekah d by the in-house radiologist without review as a courtesy to ensure prompt reporting the interpreting radiologist is fully responsible for the content of the report. Transcribed Date/Time: 08/31/2024 6:30 AM
== END 2024-08-31 02:06 | disposition short-term general hospital (02) ==
LOC: ER 16:22
DX: R11.15 Cyclical vomiting syndrome unrelated to migraine (principal)
CPT/HCPCS: 96361; 85025; 81001; 36415; 80053; 74018; 96375; 96374; 99285; J2550 ×2; J2765; J2405 ×2; J7030 ×2

== ENCOUNTER 2024-09-08 17:19 | Inpatient (IN) | payer OTHER ==
[2024-09-08 17:50] LABS: Absolute Basophils 0.1 K/uL (0-0.5); Absolute Lymphocytes (CBC) 0.9 K/uL (0.7-4.9); Absolute Monocytes 0.9 K/uL (0.1-1.3); Absolute Neutrophil 9.1 K/uL (1.8-8.0); Basophils % 0.5 % (0-1.3); Eosinophils % 0.1 % (0-4.4); Hematocrit 38.9 % (36.0-45.0); Hemoglobin 12.8 g/dL (12.0-15.0); Lymphocytes % 8.6 % (15.3-44.8); MCH 29.9 pg (27.0-35.0); MCHC 32.8 g/dL (32.0-36.0); MPV 7.2 fL (7.6-11.3); Monocytes % 8.2 % (3.3-12.3); Neutrophils % 82.6 % (41.7-73.7); Platelets 417 thou/uL (152-406); RBC Red Blood Cell Count 4.27 M/uL (3.86-4.86); Red Cell Distribution Width 15.6 % (12.1-15.2)
[2024-09-08 17:57] LABS: PT Prothrombin Time 14.6 SECONDS (9.4-12.5); Protime INR 1.4
[2024-09-08 17:59] LABS: Blood O2 Saturation 97.8 % (92-98.5)
--- NOTE | 2024-09-08 17:59 | RAD REPORT ---
EXAM: Chest Single View HISTORY: DYSPNEA COMPARISON: 08/29/2024 FINDINGS: LUNGS/PLEURA: Airspace disease at the peripheral left lung base is similar to 08/29/2024. Some irregula r opacities are again noted in the left upper lobe. The right lung is clear. MEDIASTINUM: The mediastinal silhouette is within normal limits. CARDIAC: The cardiac silhouette is within normal limits. UPPER ABDOMEN: No significant abnormality. BONES: No acute abnormality. LINES/TUBES/OTHER: N/A IMPRESSION: Similar airspace disease in the lateral left lung base could reflect pneumonia similar to 08/29/2024. N odular opacity in the left upper lobe. A chest CT is pending which can further evaluate.
[2024-09-08 18:00] LABS: Arterial Blood Carboxyhemoglob 0.8 % (0-1.5); Blood Gas Oxyhemoglobin 95.3 % (94-97); Blood Gas THB 13.2 g/dl (12-18)
--- NOTE | 2024-09-08 18:03 | RAD REPORT ---
EXAMINATION: US LOWER EXTREMITY VENOUS DOPPLER BILATERAL CLINICAL INDICATION: Female, 73 years old.PAIN TECHNIQUE: Complete bilateral duplex sonography of the lower extremity veins was performed. The exami nation included compression for vein patency, color Doppler imaging and flow augmentation in response to distal compression of the distal external iliac, common femoral, femoral, popliteal, phan brenda, tibial and great saphenous veins. [id number]. COMPARISON: No prior exams FINDINGS: Duplex sonography imaging demonstrates all deep examined to be fully compressible with spontaneous, p hasic and augmented flow bilaterally. IMPRESSION: No evidence of deep venous thrombosis seen in either lower extremity.
[2024-09-08] MEDS ORDERED: FENTANYL CITR 100 MCG/2 ML ONE (18:07)
[2024-09-08] MEDS ORDERED: ONDANSETRON 4 MG/2 ML VIAL ONE (18:08)
[2024-09-08] MEDS ORDERED: NA CHLORIDE 0.9% 1,000 ML ONE (18:08)
[2024-09-08 18:22] LABS: Albumin 3.5 g/dL (3.4-5.0); Albumin/Globulin Ratio 0.7 (1.1-1.8); Anion Gap 17.4 mEq/L (5.0-15.0); Bilirubin Direct 0.2 mg/dL (0-0.2); Bilirubin Indirect, Calculated 0.3 mg/dL (0.2-0.8); Bilirubin Total 0.5 mg/dL (0.2-1.0); Globulin 5.1 g/dL (2.3-3.5); Magnesium 2.3 mg/dL (1.6-2.4); Potassium 3.4 mEq/L (3.5-5.1); Protein, Total 8.6 g/dL (6.4-8.2); Troponin High Sensitivity 4.6 pg/mL (<58.9)
--- NOTE | 2024-09-08 18:58 | RAD REPORT ---
EXAMINATION: CTA CHEST PE CLINICAL INDICATION: Female, 73 years old. Chest pain;Dyspnea TECHNIQUE: This examination was performed according to an angiographic protocol with 3D post-processi ng. This involves 3D reconstructions, MIPs, volume rendered images and/or shaded surface rendering. One or more of the following dose reduction techniques were used: Automated exposure control, adjustm ent of the mA and/or kV according to patient size, and/or iterative reconstruction. Unless otherwise specified, incidental findings do not require dedicated imaging follow-up. [id number]. COMPARISON: 08/09/2024 FINDINGS: LOWER NECK: Visualized thyroid gland and soft tissues are normal. LUNGS AND AIRWAYS: Motion artifact. Emphysema. Left upper lobe pulmonary nodule suspicious for neopla sm is again identified. Other smaller nonspecific nodules are seen bilaterally. Atelectasis as a result of the left-sided pleural effusion. PLEURA: Small left pleural effusion is similar. MEDIASTINUM AND LYMPH NODES: Mediastinal and left hilar lymphadenopathy which is similar. Mild distal esophageal thickening. THORACIC AORTA: No thoracic aortic aneurysm. Atherosclerotic changes are present. PULMONARY ARTERIES: Enlarged main pulmonary arteries could indicate pulmonary artery hypertension. Si ngle segmental size pulmonary embolus in the right middle lobe that is new from prior. HEART: Normal heart size. No coronary calcifications.No significant pericardial effusion. OSSEOUS STRUCTURES AND CHEST WALL: Osseous metastatic disease is similar. This includes multiple spin al metastatic lesions. No acute fracture. UPPER ABDOMEN: No acute abnormalities.Hepatic steatosis. IMPRESSION: Positive for single new segmental right middle lobe pulmonary embolus. Overall clot burden is low. Sm all left pleural effusion. THIS REPORT CONTAINS FINDINGS THAT MAY BE CRITICAL TO PATIENT CARE. The emergent findings were commun icated to Dr Rich on 09/08/2024 6:53 PM at time of dictation. .
--- NOTE | 2024-09-08 18:59 | ER ---
Nurse's Notes [facility] Name: Kaylah Roper Age: 73 yrs Sex: Female : 1950 Arrival Date: 09/08/2024 Time: 17:19 Bed 2 Private MD: Diagnosis: Dyspnea;Pulmonary embolism without acute cor pulmonale-RIGHT;Hypokalemia;Neoplasm (malignant) related fatigue;Malignant neoplasm of lower lobe, right bronchus or lung;Malignant neoplasm of lower lobe, left bronchus or lung;Hypo-osmolality and hyponatremia Presentation: 09/08 17:23 Chief complaint: EMS states: Pt was at the cancer center getting a medication refill. jb4 She suddenly became SOB and nauseous. She has a history of PE about a month ago. She Normally wears oxygen at home on 2L NC. She has a 20g to the RAC. She is on 2L NC and reports that her breathing feels better, but is still nauseous and has pain all over. 12lead showed Sinus Tach, BGL was 121, temp 97.0. Coronavirus screen: At this time, the client does not indicate any symptoms associated with coronavirus-19. Ebola Screen: No symptoms or risks identified at this time. Initial Sepsis Screen: Does the patient meet any 2 criteria? RR > 20 per min. HR > 90 bpm. Yes Does the patient have a suspected source of infection? No. Patient's initial sepsis screen is negative. Risk Assessment: Do you want to hurt yourself or someone else? Patient reports no desire to harm self or others. Onset of symptoms was September 08, 2024. Transition of care: patient was not received from another setting of care. 17:23 Method Of Arrival: EMS: [facility] jb4 17:23 Acuity: JASPER 3 jb4 Historical: - Allergies: 17:29 budesonide; jb4 17:29 formoterol fumarate; jb4 17:29 glycopyrrolate; jb4 - PMHx: 17:29 bone cancer (rib fractures); COPD; DVTleft leg; Hypertensive disorder; Lung Cancer; rib jb4 fractures; - PSHx: 17:29 Ligation of fallopian tube; hysterectomy; jb4 - Immunization history:: Adult Immunizations up to date. - Infectious Disease History:: Denies. - Social history:: Smoking status: Patient denies any tobacco usage or history of. Screenin:40 [facility] ED Fall Risk Assessment (Adult) History of falling in the last 3 months, dd2 including since admission No falls in past 3 months (0 pts) Confusion or Disorientation No (0 pts) Intoxicated or Sedated No (0 pts) Impaired Gait Yes (1 pt) Mobility Assist Device Used Yes (1 pt) Altered Elimination Yes (1 pt) Score/Fall Risk Level 0 - 2 = Low Risk Oriented to surroundings, Maintained a safe environment, Educated pt \T\ family on fall prevention, incl call for assistance when getting out of bed, Assessed \T\ reinforced patient's understanding of fall precautions, Hourly rounding (assess needs \T\ fall precautionary measures) done. Abuse screen: Denies threats or abuse. Nutritional screening: No deficits noted. Tuberculosis screening: No symptoms or risk factors identified. Assessment: 19:41 General: Appears in no apparent distress. uncomfortable, Behavior is calm, cooperative, dd2 appropriate for age. Pain: Complains of pain in left leg Pain currently is 7 out of 10 on a pain scale. Neuro: [place] Agitation-Sedation Scale (RASS): 0 - Alert and Calm Level of Consciousness is awake, alert, obeys commands, Oriented to person, place, time, situation. Cardiovascular: Reports shortness of breath, Heart tones S1 S2 present Rhythm is sinus rhythm. Respiratory: Reports shortness of breath at rest on exertion Airway is patent Respiratory effort is even, unlabored, Respiratory pattern is regular, symmetrical, Breath sounds are diminished bilaterally. GI: Abdomen is non-distended, obese, Bowel sounds present X 4 quads. Abd is soft and non tender X 4 quads. Reports nausea. : Reports incontinence. EENT: No deficits noted. No signs and/or symptoms were reported regarding the EENT system. Derm: No deficits noted. No signs and/or symptoms reported regarding the dermatologic system. Musculoskeletal: Circulation, motion, and sensation intact. Range of motion: limited in LLE. Vital Signs: 17:23 BP 153 / 101; Pulse 109; Resp 24; Pulse Ox 100% on 2 lpm NC; Weight 108.86 kg (R); jb4 Height 5 ft. 5 in. ; 19:23 BP 118 / 87; Pulse 98; Resp 22; Temp 97.7; Pulse Ox 100% on 2 lpm NC; Pain 3/10; bm8 17:23 Body Mass Index 39.94 (108.86 kg, 165.1 cm) jb4 19:23 Pain Scale: Adult bm8 Yesenia Coma Score: 19:41 Eye Response: spontaneous(4). Motor Response: obeys commands(6). Verbal Response: dd2 oriented(5). Total: 15. ED Course: 17:21 Patient arrived in ED. jb4 17:22 Gorge Rich MD is Attending Physician. gibran 17:29 Triage completed. jb4 17:29 Arm band placed on right wrist. jb4 17:34 Radiology exam delayed due to lab results not completed at this time. (BUN/Creatinine) nj IV insertion attempt and/or patient not having appropriate IV at this time. 17:49 XRAY Chest (1 view) In Process Unspecified. EDMS 18:00 Radiology exam delayed due to lab results not completed at this time. (BUN/Creatinine). nj 18:01 US Extremity Venous W Compression Maninder In Process Unspecified. EDMS 18:38 CT Chest For PE Angio In Process Unspecified. EDMS 18:54 Prince Gage MD is Hospitalizing Provider. [facility] 19:38 No provider procedures requiring assistance completed. EKG done, by ED staff, reviewed dd2 by Gorge Rich MD. Initial Neb Treatment Given as ordered Patient was instructed and evaluated on procedure. IV is patent, is intact, with fluids infusing freely, with good blood return, Flushed right antecubital. Oxygen administration via nasal cannula \T\ 3L/min. 19:41 Patient has correct armband on for positive identification. Bed in low position. Call dd2 light in reach. Side rails up X2. Provided Education on: MEDICATIONS, ADMISSION. Client placed on continuous cardiac and pulse oximetry monitoring. NIBP monitoring applied. monitoring coordinator on. Door closed. Noise minimized. Warm blanket given. Pillow given. Verbal reassurance given. 20:26 Mak Monique, RN is Primary Nurse. bm8 20:26 Patient admitted, IV remains in place. bm8 Administered Medications: 18:48 Discontinued: ns 0.9% 1000 ml IV at 1000 ml once; to be given as a bolus over 60 minutescha 18:26 Drug: fentaNYL (PF) IVP 25 mcg IVP once Route: IVP; Site: right antecubital; jb4 20:29 Follow up: Response: No adverse reaction bm8 18:27 Drug: fentaNYL (PF) IVP 25 mcg IVP once Route: IVP; Site: right antecubital; jb4 20:28 Follow up: Response: No adverse reaction bm8 18:27 Drug: Ondansetron IVP 4 mg IVP once; over 2 minutes Route: IVP; Site: right antecubital;jb4 20:28 Follow up: Response: No adverse reaction bm8 18:27 Drug: NS 0.9% IV 1000 ml IV at 1000 ml once; to be given as a bolus over 60 minutes jb4 Route: IV; Rate: 1000 ml; Site: right antecubital; 19:04 Follow up: Response: No adverse reaction; IV Status: Order to discontinue infusion; IV jb4 Intake: 200ml 19:37 Drug: NS 0.9% IV 500 ml IV at 75 ml/hr once; to be given as a bolus over 30 minutes dd2 Route: IV; Rate: 75 ml/hr; Site: right antecubital; 20:27 Follow up: Response: No adverse reaction; IV Status: Infusion continued upon admission bm8 19:38 Drug: LevOfloxacin PO 750 mg PO once Route: PO; dd2 20:28 Follow up: Response: No adverse reaction bm8 19:38 Drug: Levalbuterol Inhalation 2.5 mg Inhalation once Route: Inhalation; dd2 20:28 Follow up: Response: No adverse reaction bm8 19:38 Drug: Potassium PO Effervescent Tablet 50 mEq PO once; dissolve in 4 ounces of water or dd2 juice Route: PO; 20:28 Follow up: Response: No adverse reaction bm8 Medication: 19:41 VIS not applicable for this client. dd2 Intake: 19:04 IV: 200ml; Total: 200ml. jb4 Outcome: 18:58 Decision to Hospitalize by Provider. gibran 20:26 Admitted to Med/surg accompanied by tech, via stretcher, room 204, bm8 20:26 Condition: stable 20:26 Instructed on follow up and referral plans. the need for admit, Demonstrated understanding of instructions, follow-up care, medications, 20:27 Patient left the ED. bm8 Signatures: Dispatcher [employer] EDGorge Sanches MD MD cha Bryson, James, RN RN jb4 Samuel Child Brad, RN RN bm8 RAVEN HERNÁNDEZ, RN RN dd2
--- NOTE | 2024-09-08 18:59 | EDPHYS ---
Physician Documentation [facility] Name: Kaylah Roper Age: 73 yrs Sex: Female : 1950 Arrival Date: 09/08/2024 Time: 17:19 Bed 2 Private MD: ED Physician Gorge Rich HPI: 09/08 17:34 This 73 yrs old Black Female presents to ER via EMS with complaints of SOB , CP, PAIN gibran ALL OVER. 17:34 The patient has shortness of breath with light activity. Onset: The symptoms/episode gibran began/occurred just prior to arrival. Duration: The symptoms are continuous, and are steadily getting worse. The patient's shortness of breath is aggravated by nothing, is alleviated by application of supplemental oxygen. The patient or guardian reports chest pain that is located primarily in the anterior chest wall, bilaterally. ON 2 LITERS, WAS OFF AT THE TIME. The pain does not radiate. Severity of symptoms: At their worst the symptoms were moderate in the emergency department the symptoms are unchanged. Historical: - Allergies: 17:29 budesonide; jb4 17:29 formoterol fumarate; jb4 17:29 glycopyrrolate; jb4 - PMHx: 17:29 bone cancer (rib fractures); COPD; DVTleft leg; Hypertensive disorder; Lung Cancer; rib jb4 fractures; - PSHx: 17:29 Ligation of fallopian tube; hysterectomy; jb4 - Immunization history:: Adult Immunizations up to date. - Infectious Disease History:: Denies. - Social history:: Smoking status: Patient denies any tobacco usage or history of. ROS: 17:35 Constitutional: Negative for fever, chills, and weight loss, Eyes: Negative for injury, gibran pain, redness, and discharge, ENT: Negative for injury, pain, and discharge, Neck: Negative for injury, pain, and swelling, Abdomen/GI: Negative for abdominal pain, nausea, vomiting, diarrhea, and constipation, Back: Negative for injury and pain, : Negative for injury, bleeding, discharge, and swelling, MS/Extremity: Negative for injury and deformity, Skin: Negative for injury, rash, and discoloration, Neuro: Negative for headache, weakness, numbness, tingling, and seizure, Psych: Negative for depression, anxiety, suicide ideation, homicidal ideation, and hallucinations, Allergy/Immunology: Negative for hives, rash, and allergies, Endocrine: Negative for neck swelling, polydipsia, polyuria, polyphagia, and marked weight changes, Hematologic/Lymphatic: Negative for swollen nodes, abnormal bleeding, and unusual bruising, 17:35 Cardiovascular: Positive for chest pain, 17:35 Respiratory: Positive for cough, shortness of breath, 17:35 MS/extremity: Positive for Exam: 17:35 Constitutional: This is a well developed, well nourished patient who is awake, alert, gibran and in no acute distress. Head/Face: Normocephalic, atraumatic. Eyes: Pupils equal round and reactive to light, extra-ocular motions intact. Lids and lashes normal. Conjunctiva and sclera are non-icteric and not injected. Cornea within normal limits. Periorbital areas with no swelling, redness, or edema. ENT: Nares patent. No nasal discharge, no septal abnormalities noted. Tympanic membranes are normal and external auditory canals are clear. Oropharynx with no redness, swelling, or masses, exudates, or evidence of obstruction, uvula midline. Mucous membranes moist. Neck: Trachea midline, no thyromegaly or masses palpated, and no cervical lymphadenopathy. Supple, full range of motion without nuchal rigidity, or vertebral point tenderness. No Meningismus. Chest/axilla: Normal chest wall appearance and motion. Nontender with no deformity. No lesions are appreciated. Cardiovascular: Regular rate and rhythm with a normal S1 and S2. No gallops, murmurs, or rubs. Normal PMI, no JVD. No pulse deficits. Abdomen/GI: Soft, non-tender, with normal bowel sounds. No distension or tympany. No guarding or rebound. No evidence of tenderness throughout. Back: No spinal tenderness. No costovertebral tenderness. Full range of motion. Female : Normal external genitalia. Skin: Warm, dry with normal turgor. Normal color with no rashes, no lesions, and no evidence of cellulitis. MS/ Extremity: Pulses equal, no cyanosis. Neurovascular intact. Full, normal range of motion., bilateral aka Neuro: Awake and alert, GCS 15, oriented to person, place, time, and situation. Cranial nerves II-XII grossly intact. Motor strength 5/5 in all extremities. Sensory grossly intact. Cerebellar exam normal. Normal gait. Psych: Awake, alert, with orientation to person, place and time. Behavior, mood, and affect are within normal limits. 17:35 Respiratory: the patient does not display signs of respiratory distress, Respirations: labored breathing, is not present, Breath sounds: bronchial sounds, that are mild, are scattered, decreased breath sounds, that are mild, Respiratory rate: 24 17:35 Musculoskeletal/extremity: DVT Exam: No signs of deep vein thrombosis. no pain, no swelling, no tenderness, negative Homans' sign noted on exam, no appreciated bluish discoloration, no erythema, no increased warmth, 19:32 ECG was reviewed by the Attending Physician. [facility] Vital Signs: 17:23 BP 153 / 101; Pulse 109; Resp 24; Pulse Ox 100% on 2 lpm NC; Weight 108.86 kg (R); jb4 Height 5 ft. 5 in. ; 19:23 BP 118 / 87; Pulse 98; Resp 22; Temp 97.7; Pulse Ox 100% on 2 lpm NC; Pain 3/10; bm8 17:23 Body Mass Index 39.94 (108.86 kg, 165.1 cm) 4 19:23 Pain Scale: Adult bm8 [place] Coma Score: 19:41 Eye Response: spontaneous(4). Motor Response: obeys commands(6). Verbal Response: dd2 oriented(5). Total: 15. MDM: 17:22 Medical Screening Exam initiated [facility] 17:37 Differential diagnosis: Anemia asthma, Bronchitis CHF exacerbation, abnormal EKG, acute gibarn myocardial infarction, acute pericarditis, anxiety, coronary artery disease chest wall pain, costochondritis, esophagitis, gastroesophageal reflux disease (GERD), hiatal hernia, peptic ulcer disease, pleurisy, pneumonia, pulmonary embolus, stable angina, thoracic aortic disection, unstable angina, Myocardial Infarction pneumonia, pulmonary edema, Pulmonary Embolism reactive airway disease, Sepsis Unstable Angina. Antibiotic administration: Not indicated. Differential Diagnosis altered mental status, sepsis, flu. HEART Score: History: Slightly Suspicious (0), ECG: Non specific repolarization disturbance / LBTB / PM (1), Age: > or = 65 years (2), Risk Factors: > or = 3 Risk factors for atherosclerotic disease (2), [Hypercholesterolemia] [Hypertension] [+ Family HX] [Obesity] Troponin: < or = 1 x Normal Limit (0). The patient was not given aspirin in the Emergency Department. Patient reports taking aspirin within the past 24 hours. MARGI Risk Score: 1 - patient's age is greater or equal to 65 years, 1 - Three or more CAD risk factors, 1- Known CAD. Immunization status: Pneumococcal vaccine: within last 5 years. Influenza vaccine: within last 5 years. Data reviewed: vital signs, nurses notes, EMS record, lab test result(s), EKG, radiologic studies, CT scan, plain films. Consideration of Admission/Observation Escalation of care including admission/observation considered. I considered the following discharge prescriptions or medication management in the emergency department Medications were administered in the Emergency Department. See 17:28 Order name: Basic Metabolic Panel; Complete Time: 18:47 09/08 17:28 Order name: CBC with Diff; Complete Time: 18:11 09/08 17:28 Order name: LFT's; Complete Time: 18:47 09/08 17:28 Order name: Magnesium; Complete Time: 18:47 09/08 17:28 Order name: NT PRO-BNP; Complete Time: 18:47 09/08 17:28 Order name: PT-INR; Complete Time: 18:11 gibran 09/08 17:28 Order name: Troponin HS; Complete Time: 18:47 09/08 17:28 Order name: Lipase; Complete Time: 18:47 09/08 17:28 Order name: ABG; Complete Time: 18:11 09/08 17:28 Order name: Urinalysis w/ reflexes 09/08 18:13 Order name: Blood Culture Adult (2) [facility] 09/08 18:48 Order name: Urine Sodium Random gibran 09/08 18:48 Order name: Osmolality, Serum [facility] 09/08 18:48 Order name: Urine Osmolality [facility] 09/08 19:09 Order name: Lactate w/ 2H reflex if indic. [facility] 09/08 19:09 Order name: Magnesium [facility] 09/08 19:09 Order name: NT PRO-BNP [facility] 09/08 19:09 Order name: Phosphorus [facility] 09/08 19:09 Order name: Basic Metabolic Panel [facility] 09/08 19:09 Order name: Basic Metabolic Panel [facility] 09/08 19:09 Order name: Basic Metabolic Panel [facility] 09/08 19:09 Order name: Basic Metabolic Panel [facility] 09/08 19:09 Order name: Basic Metabolic Panel [facility] 09/08 19:09 Order name: Basic Metabolic Panel [facility] 09/08 19:09 Order name: Basic Metabolic Panel [facility] 09/08 19:09 Order name: CBC with Automated Diff [facility] 09/08 19:09 Order name: CBC with Automated Diff [facility] 09/08 19:09 Order name: Lipid Profile [facility] 09/08 19:09 Order name: Lipid Profile [facility] 09/08 19:11 Order name: Cortisol [facility] 09/08 19:11 Order name: Cortisol [facility] 09/08 17:28 Order name: XRAY Chest (1 view); Complete Time: 18:11 [facility] 09/08 17:28 Order name: CT Chest For PE Angio; Complete Time: 19:02 [facility] 09/08 17:28 Order name: US Extremity Venous W Compression Maninder; Complete Time: 18:11 [facility] 09/08 17:28 Order name: Cardiac monitoring; Complete Time: 19:38 [facility] 09/08 17:28 Order name: EKG - Nurse/Tech; Complete Time: 19:38 [facility] 09/08 17:28 Order name: IV Saline Lock; Complete Time: 18:21 [facility] 09/08 17:28 Order name: Labs collected and sent; Complete Time: 18:21 [facility] 09/08 17:28 Order name: O2 Per Protocol; Complete Time: 18:26 [facility] 09/08 17:28 Order name: O2 Sat Monitoring; Complete Time: 18:21 [facility] EC:32 Rate is 99 beats/min. Rhythm is regular. QRS [place] is Normal. [place] interval is normal. QRS gibran interval is normal. QT interval is normal. No Q waves. T waves are Normal. No ST changes noted. Clinical impression: NSR w/ Non-specific ST/T Changes, Abnormal EKG without significant change, and No evidence of ischemia. Interpreted by me. Reviewed by me. Administered Medications: 18:48 Discontinued: ns 0.9% 1000 ml IV at 1000 ml once; to be given as a bolus over 60 minutescha 18:26 Drug: fentaNYL (PF) IVP 25 mcg IVP once Route: IVP; Site: right antecubital; jb4 20:29 Follow up: Response: No adverse reaction bm8 18:27 Drug: fentaNYL (PF) IVP 25 mcg IVP once Route: IVP; Site: right antecubital; jb4 20:28 Follow up: Response: No adverse reaction bm8 18:27 Drug: Ondansetron IVP 4 mg IVP once; over 2 minutes Route: IVP; Site: right antecubital;jb4 20:28 Follow up: Response: No adverse reaction bm8 18:27 Drug: NS 0.9% IV 1000 ml IV at 1000 ml once; to be given as a bolus over 60 minutes jb4 Route: IV; Rate: 1000 ml; Site: right antecubital; 19:04 Follow up: Response: No adverse reaction; IV Status: Order to discontinue infusion; IV jb4 Intake: 200ml 19:37 Drug: NS 0.9% IV 500 ml IV at 75 ml/hr once; to be given as a bolus over 30 minutes dd2 Route: IV; Rate: 75 ml/hr; Site: right antecubital; 20:27 Follow up: Response: No adverse reaction; IV Status: Infusion continued upon admission bm8 19:38 Drug: LevOfloxacin PO 750 mg PO once Route: PO; dd2 20:28 Follow up: Response: No adverse reaction bm8 19:38 Drug: Levalbuterol Inhalation 2.5 mg Inhalation once Route: Inhalation; dd2 20:28 Follow up: Response: No adverse reaction bm8 19:38 Drug: Potassium PO Effervescent Tablet 50 mEq PO once; dissolve in 4 ounces of water or dd2 juice Route: PO; 20:28 Follow up: Response: No adverse reaction bm8 Disposition Summary: 09/08/24 18:58 Hospitalization Ordered Notes: Hospitalization Status: Inpatient Admission gibran Provider: Prince gibran Gage Location: Telemetry/MedSurg (Inpatient) gibran Condition: Fair gibran Problem: new gibran Symptoms: have improved gibran Bed/Room Type: Standard gibran Room Assignment: 204(09/08/24 19:13) eb Diagnosis - Dyspnea gibran - Pulmonary embolism without acute cor pulmonale - RIGHT gibran - Hypokalemia gibran - Neoplasm (malignant) related fatigue gibran - Malignant neoplasm of lower lobe, right bronchus or lung gibran - Malignant neoplasm of lower lobe, left bronchus or lung gibran - Hypo-osmolality and hyponatremia gibran Forms: - Medication Reconciliation Form gibran - SBAR form gibran - Leadership Thank You Letter gibran Signatures: Dispatcher [employer] EDGorge Sanches MD MD cha Bryson, James, RN RN jb4 Safia Cantu DIANA, RN RN dd2 Mak Monique RN bm8 Corrections: (The following items were deleted from the chart) 17:28 17:28 BASIC METABOLIC PANEL+C.LAB.BRZ ordered. EDMS EDMS 17:28 17:28 CBC+H.LAB.BRZ ordered. EDMS EDMS 17:28 17:28 HEPATIC FUNCTION+C.LAB.BRZ ordered. EDMS EDMS 17:28 17:28 MAGNESIUM+C.LAB.BRZ ordered. EDMS EDMS 17:28 17:28 PROBNP+C.LAB.BRZ ordered. EDMS EDMS 17:28 17:28 PROTIME (+INR)+COAG.LAB.BRZ ordered. EDMS EDMS 17:28 17:28 Troponin High Sensitivity+C.LAB.BRZ ordered. EDMS EDMS 17:28 17:28 LIPASE+C.LAB.BRZ ordered. EDMS EDMS 17:28 17:28 Urinalysis+U.LAB.BRZ ordered. EDMS EDMS 17:28 17:28 Chest Single View+RAD.RAD.BRZ ordered. EDMS EDMS 17:29 17:29 Arterial Blood Gas+RC.LAB.BRZ ordered. EDMS EDMS 17:29 17:29 Chest For PE Angio+CT.RAD.BRZ ordered. EDMS EDMS 17:29 17:29 Extrem Venous W Compression Maninder+US.RAD.BRZ ordered. EDMS EDMS 18:48 18:48 URINE SODIUM RANDOM+CHEM UR.LAB.BRZ ordered. EDMS EDMS 18:48 18:48 OSMOLALITY, SERUM+SC.LAB.BRZ ordered. EDMS EDMS 18:48 18:48 Osmolality, Urine ordered. EDMS EDMS 19:13 18:58 gibran eb
[2024-09-08] MEDS ORDERED: ALBUTEROL 2.5 MG/3 ML NEB SOL NEB PRN (19:04)
[2024-09-08] MEDS ORDERED: ACETAMINOPHEN 500 MG TAB PO PRN (19:04)
[2024-09-08] MEDS ORDERED: IPRATROPIUM BROM 0.5MG/2.5ML NEB PRN (19:04)
[2024-09-08] MEDS ORDERED: LEVALBUTEROL 1.25 MG/3 ML NEB ONE (19:08)
[2024-09-08] MEDS ORDERED: levoFLOXacin 750 MG TAB ONE (19:08)
[2024-09-08] MEDS ORDERED: POTASSIUM 25 MEQ EFFERV TAB ONE (19:09)
[2024-09-08] MEDS ORDERED: NA CHLORIDE 0.9% 500 ML ONE (19:09)
--- NOTE | 2024-09-08 19:17 | P.HP ---
Certification for Inpatient Patient admitted to: Inpatient With expected LOS: >2 Midnights Practitioner: I am a practitioner with admitting privileges, knowledge of patient current condition, hospital course, and medical plan of care. Services: Services provided to patient in accordance with Admission requirements found in Title 42 Section 412.3 of the Code of Federal Regulations Patient History Date of Service: 09/08/24 Reason for admission: shortness of breath and chest pain History of Present Illness: Patient is a 73 year old female with a PMH of lung cancer with bone metastasis, DVT on xarelto at home, COPD, chronic respiratory failure on 2L at home. She presents with ongoing chest pain and shortness of breath. She reportedly went to an outpatient clinic appointment without her oxygen. As per sign out, she states that she forgot to wear her O2. She became short of breath and presented here for this reason. Work up in the in ER included CTA of the chest which revealed a segmental RML PE. Patient is currently on 2L. Additional work up reveals moderate hyponatremia with a Na+ of 124. She was on HCTZ prior to arrival. Her K+ is 3.4 Allergies budesonide [From Breztri Aerosphere] Allergy (Verified 10/03/23 13:12) unknown formoterol [From Breztri Aerosphere] Allergy (Verified 10/03/23 13:12) unknown glycopyrrolate [From Breztri Aerosphere] Allergy (Verified 10/03/23 13:12) unknown Home Medications: Albuterol Inhaler [Ventolin Inhaler] 2 puff IH Q6H PRN 07/11/23 Mv-Min/Iron/Folic/Calcium/Vitk [Women's Multivitamin Tablet] 1 each PO DAILY 07/11/23 Rivaroxaban [Xarelto] 15 mg PO DAILY 07/11/23 Triamterene/Hydrochlorothiazid [Triamterene-Hctz 37.5-25 mg Tb] 1 each PO SEECOM 07/11/23 Umeclidinium Brm/Vilanterol Tr [Anoro Ellipta 62.5-25 Mcg INH] 1 each IH DAILY 07/11/23 Codeine/APAP [Tylenol W/Codeine #3 tab] 1 tab PO Q6HP PRN 07/07/24 Fluticasone [Flonase 50mcg Nasal [place]] 2 sprays NS DAILY 07/07/24 Gabapentin 300 mg PO BEDTIME 07/07/24 LIDOCAINE 5% Ointment [Lidocaine HCl*] 5 % TOP Q12H PRN 07/07/24 Pantoprazole [Protonix Tab] 20 mg PO AC 07/07/24 - Past Medical/Surgical History -: COPD -: L4 metastasis Physical Examination - Studies Laboratory Data (last 24 hrs) 09/08/24 09/08/24 09/08/24 17:41 17:41 17:41 WBC 11.00 H Hgb 12.8 Hct 38.9 Plt Count 417 H PT 14.6 H INR 1.40 Sodium 124 L Potassium 3.4 L BUN 20 H Creatinine 0.79 Glucose 107 H Magnesium 2.3 Total Bilirubin 0.5 AST 26 ALT 22 Alkaline Phosphatase 179 H Lipase 22 Assessment and Plan - Problems (Diagnosis) (1) Acute hypoxemic respiratory failure Current Visit: Yes Status: Acute (2) Pulmonary embolism Current Visit: Yes Status: Acute (3) Hyponatremia Current Visit: Yes Status: Acute (4) Hypokalemia Current Visit: Yes Status: Acute - Plan Assessment Patient is a 73 year old F with known PMH of lung and bone cancer, COPD and PE on xarelto. She is being admitted after she presents with chest pain and shortness of breath. She has been found to have a new segmental RML PE. She is on supplemental O2. Additional work up shows a Na+ of 124, and K+ 3.4. Patient was on HCZT [employer] Acute hypoxemic respiratroy failure Acute PE COPD Acute hyponatremia Hypokalemia Lung cancer Bone cancer PLAN: Will admit inpatient with telemetry Continue systemic anticoagulation AND supplemental O2 Pulmonary consulted Fluid restriction, < 1.2L PER DAY Serial BMP, q 4 hours Follow serum and urine osm, urine Na+ and AM cortisol TFT ordered as well GI ppx. Patient can probably be discharged tomorrow if Na+ > 130. - Advance Directives Does patient have a Living Will: No Does patient have a Durable POA for Healthcare: No
[2024-09-08] MEDS: HYDROMORPHONE HCL 1 MG/ML INJ IV PRN (21:10)
[2024-09-09] MEDS: MORPHINE 2 MG/ML SYR IV ONE (00:11)
[2024-09-09 01:00] LABS: Anion Gap 10.5 mEq/L (5.0-15.0); Potassium 3.5 mEq/L (3.5-5.1); Sqamous Epithelial <5 /HPF (None Seen); Urine Bacteria >50 /HPF (<20); Urine Bilirubin NEGATIVE (Negative); Urine Blood 1+ (Negative); Urine Clarity Extremely Turbid (Clear); Urine Color Yellow (Yellow); Urine Culture Reflex Order REFLEXED; Urine Glucose NEGATIVE (Negative); Urine Ketones TRACE (Negative); Urine Microscopic Reflex YN ORDER UMIC; Urine Mucus Slight /HPF (None Seen); Urine Nitrite 1+ (Negative); Urine Protein 1+ (Negative); Urine RBC >50 /HPF (None Seen); Urine Urobilinogen Normal (Normal); Urine WBC >50 /HPF (<5); Urine WBC Clump Few /HPF (None Seen)
[2024-09-09 01:04] LABS: Magnesium 2.3 mg/dL (1.6-2.4); Phosphorus 2.6 mg/dL (2.5-4.9)
[2024-09-09 01:13] LABS: Specific Gravity > 1.030 (1.005-1.030)
[2024-09-09] MEDS: ONDANSETRON 4 MG/2 ML VIAL IV PRN (04:37)
[2024-09-09 04:43] LABS: Absolute Basophils 0.1 K/uL (0-0.5); Absolute Lymphocytes (CBC) 1.3 K/uL (0.7-4.9); Absolute Neutrophil 6.4 K/uL (1.8-8.0); Basophils % 0.7 % (0-1.3); Eosinophils % 0.5 % (0-4.4); Hematocrit 35.5 % (36.0-45.0); Hemoglobin 11.7 g/dL (12.0-15.0); Lymphocytes % 14.5 % (15.3-44.8); MCV 91.1 fL (80-100); MPV 7.3 fL (7.6-11.3); Monocytes % 11.7 % (3.3-12.3); Neutrophils % 72.6 % (41.7-73.7); Platelets 391 thou/uL (152-406); Red Cell Distribution Width 15.7 % (12.1-15.2)
[2024-09-09 04:44] LABS: Anion Gap 15.6 mEq/L (5.0-15.0); Potassium 3.6 mEq/L (3.5-5.1)
[2024-09-09] MEDS ORDERED: ALBUTEROL INHALER 200 PUFF/6.7 GM IH PRN (05:37)
[2024-09-09] MEDS ORDERED: LIDOCAINE 5% OINT 30 GM TUBE TOP PRN (05:37)
[2024-09-09] MEDS ORDERED: methocarbamoL 750 MG TAB PO PRN (05:37)
[2024-09-09] MEDS ORDERED: FLUTICASONE 50MCG NASAL SPRAY NAS PRN (05:37)
[2024-09-09] MEDS: CEFTRIAXONE 1,000 MG in NA CHLORIDE 0.9% 50 ML IVPB SCH (06:25)
[2024-09-09] MEDS: POTASSIUM CL SA 10 MEQ TAB PO ONE (08:00)
[2024-09-09 08:19] LABS: Anion Gap 12.7 mEq/L (5.0-15.0); Potassium 3.7 mEq/L (3.5-5.1)
[2024-09-09] MEDS: [UNRECOGNIZED DRUG - OTHER] IH SCH (09:00)
[2024-09-09] MEDS: PROMETHAZINE INJ 25 MG/ML AMP IV PRN (09:25)
[2024-09-09] MEDS: POTASSIUM 25 MEQ EFFERV TAB PO ONE (09:46)
--- NOTE | 2024-09-09 11:46 | EKG ---
Test Date: 2024-09-08 Test Time: 19:19:04 Complaint Investigator: GT MEASUREMENT RESULTS: Intervals: Rate: 99 MO: 148 QRSD: 82 QT: 366 QTc: 469 [place]: P: 36 MO: 148 QRS: 23 T: 50 INTERPRETIVE STATEMENTS: Normal sinus rhythm Normal ECG Compared to ECG 08/29/2024 20:27:10 Sinus tachycardia no longer present Myocardial infarct finding no longer present Electronically Signed On 09-09-24 11:45:42 CORPORATE SAFETY MANAGER by Chucky Pelaez
[2024-09-09 12:21] LABS: Anion Gap 9.9 mEq/L (5.0-15.0); Potassium 3.9 mEq/L (3.5-5.1)
[2024-09-09] MEDS: CODEINE 30MG/APAP 300MG TAB PO PRN (12:23)
--- NOTE | 2024-09-09 15:01 | P.PN ---
Subjective Date of Service: 09/09/24 Chief Complaint: shortness of breath and chest pain Patient is complaining of nausea and vomiting. She is also complaining of generalized weakness. Patient is currently maintained on 2 L oxygen via nasal cannula with oxygen saturation of 96 to 100%. Physical Examination - Vital Signs Temperature: 97.6 F Blood Pressure: 139/76 Pulse: 99 Respirations: 14 Pulse Ox (%): 96 - Studies Laboratory Data (last 24 hrs) 09/08/24 09/08/24 09/08/24 17:41 17:41 17:41 WBC 11.00 H Hgb 12.8 Hct 38.9 Plt Count 417 H PT 14.6 H INR 1.40 Sodium 124 L Potassium 3.4 L BUN 20 H Creatinine 0.79 Glucose 107 H Magnesium 2.3 Total Bilirubin 0.5 AST 26 ALT 22 Alkaline Phosphatase 179 H Lipase 22 Assessment And Plan - Plan Physical examination General: Alert and oriented x3, NAD, HEENT: Conjunctiva not pale, anicteric sclera Neck: Supple, no elevated JVD Heart: Heart sounds 1 and 2 normal, regular rhythm, normal rate, no pedal edema Lungs: Clear to auscultation bilaterally, adequate breath sounds bilaterally, no rhonchi or crackles. Abdomen: Soft, nondistended, nontender, normal bowel sounds. Extremities: No tenderness, no deformity Skin: Normal skin turgor, no rash, no nodules or ulcers. Neuro: No focal motor deficit. Normal speech. Psychiatry: Normal mood, no agitation. Diagnosis Acute hypoxemic respiratroy failure History of pulm embolus COPD Acute hyponatremia Hypokalemia Lung cancer Bone cancer Chronic respiratory failure with hypoxia Maintain patient on home oxygen. History of pulm embolus Resume home dose Xarelto. Intractable nausea and vomiting Unknown etiology Obtain KUB to assess for constipation History of lung cancer Patient is currently receiving chemotherapy Follow-up with oncology as outpatient for chemo. 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 Patient with low serum osmolality Free water restriction Monitor BMP closely, avoid overcorrection by 10 to 12 mEq/day. Generalized weakness/decreased mobility PT consult. DVT prophylaxis: Xarelto Advanced directive: Full code
[2024-09-09 16:57] LABS: Anion Gap 14.8 mEq/L (5.0-15.0); Potassium 3.8 mEq/L (3.5-5.1)
--- NOTE | 2024-09-09 18:11 | RAD REPORT ---
EXAM: AP view(s) of the abdomen Abdomen 1 View (KUB) HISTORY: Nausea and vomiting. COMPARISON: 08/30/24 FINDINGS: Nonobstructive bowel gas pattern.. No suspicious calcifications are seen. No acute osseous abnormality. Left hip arthroplasty. Other: Residual contrast within the bladder. IMPRESSION: Nonobstructive bowel gas pattern.
[2024-09-09] MEDS: RIVAROXABAN 15 MG TABLET PO SCH (20:45)
[2024-09-09] MEDS: GABAPENTIN 300 MG CAP PO SCH (20:45)
[2024-09-10 02:27] VITALS: BMI 39.9
[2024-09-10] MEDS: HYDROCODONE/APAP 10/325 TAB PO PRN (02:32)
[2024-09-10 06:42] LABS: Albumin 3.1 g/dL (3.4-5.0); Albumin/Globulin Ratio 0.7 (1.1-1.8); Anion Gap 13.7 mEq/L (5.0-15.0); Bilirubin Total 0.4 mg/dL (0.2-1.0); Globulin 4.5 g/dL (2.3-3.5); Potassium 3.7 mEq/L (3.5-5.1); Protein, Total 7.6 g/dL (6.4-8.2)
[2024-09-10 07:20] LABS: Absolute Basophils 0.1 K/uL (0-0.5); Absolute Eosinophils 0.1 K/uL (0-0.5); Absolute Lymphocytes (CBC) 1.2 K/uL (0.7-4.9); Absolute Neutrophil 5.8 K/uL (1.8-8.0); Basophils % 0.7 % (0-1.3); Eosinophils % 0.6 % (0-4.4); Hematocrit 34.9 % (36.0-45.0); Hemoglobin 11.6 g/dL (12.0-15.0); Lymphocytes % 14.9 % (15.3-44.8); MCH 30.2 pg (27.0-35.0); MCHC 33.2 g/dL (32.0-36.0); MPV 7.4 fL (7.6-11.3); Monocytes % 11.9 % (3.3-12.3); Neutrophils % 71.9 % (41.7-73.7); Platelets 371 thou/uL (152-406); RBC Red Blood Cell Count 3.83 M/uL (3.86-4.86); Red Cell Distribution Width 15.6 % (12.1-15.2)
[2024-09-10] MEDS: PANTOPRAZOLE 20 MG PO SCH (07:30)
--- NOTE | 2024-09-10 14:05 | P.PN ---
Subjective Date of Service: 09/10/24 Chief Complaint: shortness of breath and chest pain Subjective: No new changes Review of Systems General: Unremarkable Eyes: Unremarkable ENT: Unremarkable Respiratory: Unremarkable Cardiovascular: Unremarkable Gastrointestinal: Unremarkable Genitourinary: Unremarkable Integumentary: Unremarkable Neurological: Unremarkable Physical Examination - Vital Signs Temperature: 97.3 F Blood Pressure: 131/68 Pulse: 105 Respirations: 16 Pulse Ox (%): 98 - Physical Exam General: Oriented x3 HEENT: Atraumatic Neck: Supple Respiratory: Clear to auscultation bilaterally Cardiovascular: No edema Gastrointestinal: Soft and benign Musculoskeletal: No clubbing, No swelling, No erythema Neurological: Normal strength at 5/5 x4 extr Assessment And Plan - Plan 1. Acute hypoxic respiratory failure secondary to R pulmonary embolism -CTA positive for PE -Currently on Xarelto 2. 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 UTI -Prelim urine cultures positive for gram-negative rods and beta-hemolytic strep -Continue Rocephin 4. Recent left hip fracture s/p surgical repair -Patient markedly deconditioned -PT/OT eval ordered 5. History of lung cancer with bone mets -On prn Opioids for pain control 6. DVT prophylaxis -On Xarelto 7. Disposition: Awaiting PT/OT eval to determine disposition
[2024-09-10] MEDS: UREA 15 GM POWDER PACKET PO SCH (16:22)
[2024-09-10] MEDS: FUROSEMIDE 20 MG TABLET PO SCH (16:23)
[2024-09-10 17:43] LABS: UR SODIUM < 15 mmol/L (27-287)
[2024-09-10] MEDS: SODIUM CHLORIDE 1 GM TAB PO SCH (20:10)
--- NOTE | 2024-09-10 22:14 | CON ---
Reason For Consultation: Hyponatremia. Chief Complaint: Admitted for shortness of breath and chest pain. History Of Present Illness: This is a 73-year-old woman, , with past medical history of metastatic lung cancer; history of DVT, on Xarelto; COPD; and chronic respiratory failure, on 2 L of oxygen. The patient presented complaining of shortness of breath. Labs showed sodium 124, that improved to 127. Reviewing her labs showed chronic hyponatremia. The patient has history of around 130. The patient stated she was referred to a health care law specialist in the past, but did not attend. Past Medical History: Lung cancer, DVT, chronic hyponatremia. Allergies: ALLERGIC TO BUDESONIDE FORMOTEROL AND GLYCOPYRROLATE. Home Medications: See MAR. Family History: Noncontributory. Review of Systems: Positive for shortness of breath. Denied nausea, vomiting, diarrhea, or constipation. Physical Examination: Vital Signs: Temperature 97.3, pulse rate 105, blood pressure 131/68. General: Awake, alert, oriented x3. Obese. On oxygen. Neck: Supple. No elevated JVD. Heart: Regular rate and rhythm. Normal S1, S2. Chest: Clear to auscultation bilaterally. No rales or wheezes. Abdomen: Soft, nontender. Extremities: No edema. Laboratory Data: White count 8.1, hemoglobin 11.6. Sodium 126, potassium 3.7. 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 Olena nue fluid restriction. We will add salt tablet, angioedema. Follow up urine lytes, TSH, and serum u nallely acid level. If no improvement, we will consider tolvaptan. 2.Shortness of breath due to pulmonary embolism. Continue anticoagulation. 3.Acute hypoxic respiratory failure due to pulmonary embolism. Continue Xarelto. We will add Lasix . 4.History of metastatic lung cancer. Continue supportive care. Thanks for allowing me to participate in the patient's care. Total time spent 75 minutes, including documentation, reviewing labs, and placing orders. ANTOINETTE/PRIYANKA Voice ID: [id number] Report ID: [id number]
[2024-09-11] MEDS: BISACODYL E.C. 5 MG TAB PO PRN (06:11)
[2024-09-11 07:56] LABS: Absolute Basophils 0.1 K/uL (0-0.5); Absolute Lymphocytes (CBC) 0.9 K/uL (0.7-4.9); Absolute Monocytes 0.7 K/uL (0.1-1.3); Absolute Neutrophil 6.4 K/uL (1.8-8.0); Basophils % 0.8 % (0-1.3); Eosinophils % 0.5 % (0-4.4); Hematocrit 36.1 % (36.0-45.0); Hemoglobin 11.8 g/dL (12.0-15.0); Lymphocytes % 11.2 % (15.3-44.8); MCH 30.1 pg (27.0-35.0); MCHC 32.8 g/dL (32.0-36.0); MCV 91.6 fL (80-100); MPV 6.7 fL (7.6-11.3); Monocytes % 8.4 % (3.3-12.3); Neutrophils % 79.1 % (41.7-73.7); Platelets 414 thou/uL (152-406); RBC Red Blood Cell Count 3.94 M/uL (3.86-4.86); Red Cell Distribution Width 15.8 % (12.1-15.2)
[2024-09-11] MEDS: NITROFURAN MACRO 100 MG CAP PO SCH (08:18)
[2024-09-11 08:19] LABS: Anion Gap 10.1 mEq/L (5.0-15.0); Magnesium 2.3 mg/dL (1.6-2.4); Potassium 3.1 mEq/L (3.5-5.1)
[2024-09-11 08:30] LABS: Uric Acid 7.3 mg/dL (2.6-6.0)
[2024-09-11 08:31] LABS: Thyroid Stimulating Hormone 4.8 uIU/mL (0.358-3.740)
[2024-09-11] MEDS: POTASSIUM CL SA 10 MEQ TAB PO ONE (08:54)
[2024-09-11] MEDS: DOCUSATE NA/SENNA CONC 1 TAB PO SCH (09:00)
[2024-09-11] MEDS: LACTULOSE 20 GM/30 ML UCUP PO SCH (09:37)
[2024-09-11] MEDS: POLYETHYL GLY 3350 17 GM/DOSE PO SCH (09:37)
[2024-09-11] MEDS: POTASSIUM 25 MEQ EFFERV TAB PO ONE (09:46)
--- NOTE | 2024-09-11 17:47 | P.PN ---
Subjective Date of Service: 09/11/24 Chief Complaint: shortness of breath and chest pain Review of Systems 10-point ROS is otherwise unremarkable Physical Examination - Vital Signs Temperature: 98.0 F Blood Pressure: 134/72 Pulse: 107 Respirations: 16 Pulse Ox (%): 100 - Physical Exam General: Alert, Oriented x3 HEENT: Atraumatic Neck: Supple Respiratory: Clear to auscultation bilaterally Cardiovascular: No edema Capillary refill: <2 Seconds Musculoskeletal: No clubbing Integumentary: No rashes External genitalia: No edema, No lesions Assessment And Plan - Plan 1. Acute hypoxic respiratory failure secondary to R pulmonary embolism -CTA positive for PE -Currently on Xarelto 2. 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 UTI -Urine cultures positive for E. coli and Enterococcus avium -On Macrobid 4. Recent left hip fracture s/p surgical repair -Patient markedly deconditioned -PT/OT eval ordered 5. History of lung cancer with bone mets -On prn Opioids for pain control 6. DVT prophylaxis -On Xarelto 7. Disposition: Awaiting PT/OT eval to determine disposition
[2024-09-11] MEDS: HYDROMORPHONE HCL 1 MG/ML INJ IV PRN (20:26)
[2024-09-12 07:30] LABS: Absolute Basophils 0.1 K/uL (0-0.5); Absolute Monocytes 0.9 K/uL (0.1-1.3); Absolute Neutrophil 5.6 K/uL (1.8-8.0); Basophils % 0.8 % (0-1.3); Eosinophils % 0.4 % (0-4.4); Hematocrit 34.1 % (36.0-45.0); Hemoglobin 11.3 g/dL (12.0-15.0); Lymphocytes % 13.6 % (15.3-44.8); MCH 30.4 pg (27.0-35.0); MCHC 33.2 g/dL (32.0-36.0); MCV 91.7 fL (80-100); MPV 6.5 fL (7.6-11.3); Neutrophils % 73.2 % (41.7-73.7); Nucleated Red Blood Cells % 0.1 % (0-0); Platelets 415 thou/uL (152-406); RBC Red Blood Cell Count 3.72 M/uL (3.86-4.86); Red Cell Distribution Width 15.8 % (12.1-15.2)
[2024-09-12 07:45] LABS: Anion Gap 11.4 mEq/L (5.0-15.0); Magnesium 2.3 mg/dL (1.6-2.4); Potassium 3.4 mEq/L (3.5-5.1)
[2024-09-12] MEDS: POTASSIUM CL SA 10 MEQ TAB PO ONE (08:04)
--- NOTE | 2024-09-12 09:20 | P.PN ---
Subjective Date of Service: 09/12/24 Chief Complaint: shortness of breath and chest pain Subjective: No new changes No complaints Review of Systems 10-point ROS is otherwise unremarkable Physical Examination - Vital Signs Temperature: 97.8 F Blood Pressure: 131/74 Pulse: 96 Respirations: 15 Pulse Ox (%): 99 - Physical Exam General: Alert HEENT: Atraumatic, Normocephalic Neck: Supple Respiratory: Clear to auscultation bilaterally Cardiovascular: No edema, Normal pulses, Regular rate/rhythm, Edema Capillary refill: <2 Seconds Musculoskeletal: No clubbing, No swelling External genitalia: No edema Rectal: Normal Assessment And Plan - Plan 1. Acute hypoxic respiratory failure secondary to R pulmonary embolism -CTA positive for PE -Currently on Xarelto 2. 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 UTI -Urine cultures positive for E. coli and Enterococcus avium -On Macrobid 4. Recent left hip fracture s/p surgical repair -Patient markedly deconditioned -PT/OT eval ordered 5. History of lung cancer with bone mets -On prn Opioids for pain control 6. DVT prophylaxis -On Xarelto 7. Disposition: Awaiting PT/OT eval to determine disposition
[2024-09-12] MEDS: HYDROMORPHONE HCL 0.5 MG/0.5 ML INJ IV PRN (20:22)
[2024-09-13] MEDS: POTASSIUM 25 MEQ EFFERV TAB PO ONE ×2 (06:38→09:28)
--- NOTE | 2024-09-13 07:20 | ECHO ---
HEIGHT: 5 ft 5 in WEIGHT: 240 lb 0 oz DATE OF STUDY: 09/10/[address]: Prince Darrian Gage MD 2-DIMENSIONAL: YES M.MODE: YES DOPPLER: YES COLOR FLOW: YES TDS: NO PORTABLE: YES DEFINITY: NO BUBBLE STUDY: NO DIAGNOSIS: ASSESS CLOT BURDEN CARDIAC HISTORY: CATHERIZATION: SURGERY: PROSTHETIC VALVE: PACEMAKER: MEASUREMENTS (cm) DIASTOLIC (NORMALS) SYSTOLIC (NORMALS) IVSd 0.9 (0.6-1.2) LA Diam 2.8 (1.9-4.0) LVEF 55-60% LVIDd 4.1 (3.5-5.7) LVIDs 2.8 (2.0-3.5) %FS 32% LVPWd 1.0 (0.6-1.2) Ao Diam 2.6 (2.0-3.7) 2 DIMENSIONAL ASSESSMENT: RIGHT ATRIUM: NORMAL LEFT ATRIUM: NORMAL RIGHT VENTRICLE: MILDLY DILATED LEFT VENTRICLE: NORMAL TRICUSPID VALVE: MILD TRICUSPID REGURGITATION MITRAL VALVE: NORMAL PULMONIC VALVE: NORMAL AORTIC VALVE: NORMAL PERICARDIAL EFFUSION: NONE AORTIC ROOT: NORMAL LEFT VENTRICULAR WALL MOTION: NORMAL. DOPPLER/COLOR FLOW: SEE BELOW. COMMENTS: 1. NORMAL LEFT VENTRICULAR EJECTION FRACTION 55-60%. 2. GRADE I DIASTOLIC DYSFUNCTION. 3. MILD TRICUSPID REGURGITATION. 4. MILDLY DILATED RIGHT VENTRICLE WITH NORMAL FUNCTION. 5. PULMONARY HYPERTENSION WITH RIGHT VENTRICULAR SYSTOLIC PRESSURE OF 40 mmHg PLUS RIGHT ATRIAL PRESSURE. TECHNOLOGIST: LEEANNE RILEY [facility]
[2024-09-13] MEDS: POTASSIUM 25 MEQ EFFERV TAB ONE (07:31)
[2024-09-13] MEDS: POTASSIUM CL SA 10 MEQ TAB PO SCH (07:44)
[2024-09-13 08:02] LABS: Absolute Basophils 0.1 K/uL (0-0.5); Absolute Eosinophils 0.1 K/uL (0-0.5); Absolute Monocytes 0.9 K/uL (0.1-1.3); Absolute Neutrophil 6.2 K/uL (1.8-8.0); Basophils % 0.9 % (0-1.3); Eosinophils % 0.7 % (0-4.4); Hemoglobin 11.2 g/dL (12.0-15.0); Lymphocytes % 11.8 % (15.3-44.8); MCH 30.3 pg (27.0-35.0); MCHC 32.9 g/dL (32.0-36.0); MCV 92.2 fL (80-100); MPV 6.8 fL (7.6-11.3); Monocytes % 10.8 % (3.3-12.3); Neutrophils % 75.8 % (41.7-73.7); Nucleated Red Blood Cells % 0.1 % (0-0); Platelets 392 thou/uL (152-406); RBC Red Blood Cell Count 3.69 M/uL (3.86-4.86); Red Cell Distribution Width 15.6 % (12.1-15.2)
[2024-09-13 08:08] LABS: Anion Gap 9.3 mEq/L (5.0-15.0); Potassium 3.3 mEq/L (3.5-5.1)
[2024-09-13] MEDS ORDERED: ALBUTEROL 2.5 MG/3 ML NEB SOL NEB PRN (11:06)
[2024-09-13] MEDS: WATER FOR INJ,STERILE 10 ML IV ONE (14:00)
[2024-09-13] MEDS: HYDROCORTISONE SUC 100 MG INJ IV ONE (14:01)
[2024-09-13] MEDS: WATER FOR INJ,STERILE 10 ML IV SCH (21:00)
[2024-09-13] MEDS: HYDROCORTISONE SUC 100 MG INJ IV SCH (21:13)
--- NOTE | 2024-09-13 22:53 | PN ---
Date of Progress Note: 09/13/2024 Chief Complaint: Hyponatremia. Patient is admitted for shortness of breath and chest pain. She is 73-year-old woman with past medical history of metastatic lung cancer; history of DV T, on Xarelto; COPD; and chronic respiratory failure on 2 L of oxygen. The patient presented to the hospital because of shortness of breath. She was complaining of dyspnea on exertion and some dyspnea at rest as well. Lab work showed sodium of 124. Subsequently, sodium level was improved to 127. T he patient had chronic asymptomatic hyponatremia due to COPD exacerbation and respiratory failure. Review of Systems: Patient denies chest pain, palpitation today. Denies PND, orthopnea. She has chronic shortness of b reath. Denies cough, hemoptysis, abdominal pain, dysuria, hematuria. Physical Examination: Lungs: Few rhonchi. Heart: S1 and S2. Abdomen: Soft, benign. Extremities: No edema. Impression And Plan: 1.Acute on chronic hyponatremia due to SIADH. Patient will continue fluid restriction and the patie nt was started on sodium chloride tablet. TSH was ordered to rule out hypothyroidism and uric acid w as ordered to check for any evidence of SIADH. Plan is to consider tolvaptan if sodium level is fluc tuating. Continue p.o. fluid restriction. Adjust sodium chloride tablet according to lab results. 2.Hypoxemic acute respiratory failure due to pulmonary embolism. The patient is on Xarelto. Contin ue Lasix for volume control and monitor potassium, magnesium, and phosphorus as well as renal panel. 3.History of metastatic lung cancer. Continue supportive care. EB/MODL Voice ID: [id number] Report ID: [id number]
--- NOTE | 2024-09-14 00:04 | P.PN ---
Date of Service: 09/13/24 Subjective Admitted with shortness of breath, had noted pulmonary embolus, currently on bedrest due to severe deconditioning Review of Systems 10-point ROS is otherwise unremarkable Physical Examination - Vital Signs Reviewed - Physical Exam General: Alert, oriented x 3, afebrile HEENT: Atraumatic, Normocephalic Neck: Supple Respiratory: Clear to auscultation bilaterally, unlabored Cardiovascular: No edema, Normal pulses, Regular rate/rhythm, Edema Capillary refill: <2 Seconds Musculoskeletal: No clubbing, No swelling, moderate generalized weakness, Neurological: Normal speech, , Cranial nerves 3-12 intac Assessment And Plan - Plan Acute hypoxic respiratory failure secondary to R pulmonary embolism 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 coli and Enterococcus avium -On Macrobid Recent left hip fracture s/p surgical repair -Patient markedly deconditioned -PT/OT eval ordered DVT prophylaxis -On Xarelto Disposition: Awaiting PT/OT eval to determine disposition
[2024-09-14 07:43] LABS: Absolute Lymphocytes (CBC) 1.3 K/uL (0.7-4.9); Absolute Monocytes 0.7 K/uL (0.1-1.3); Absolute Neutrophil 5.3 K/uL (1.8-8.0); Basophils % 0.6 % (0-1.3); Eosinophils % 0.1 % (0-4.4); Hematocrit 32.6 % (36.0-45.0); Hemoglobin 10.7 g/dL (12.0-15.0); Lymphocytes % 17.8 % (15.3-44.8); MCH 29.8 pg (27.0-35.0); MCHC 32.8 g/dL (32.0-36.0); MPV 6.7 fL (7.6-11.3); Neutrophils % 72.5 % (41.7-73.7); Platelets 375 thou/uL (152-406); RBC Red Blood Cell Count 3.58 M/uL (3.86-4.86); Red Cell Distribution Width 15.6 % (12.1-15.2)
[2024-09-14 07:53] LABS: Anion Gap 11.9 mEq/L (5.0-15.0); Potassium 3.9 mEq/L (3.5-5.1)
[2024-09-14] MEDS: POTASSIUM 25 MEQ EFFERV TAB PO SCH (08:23)
--- NOTE | 2024-09-14 14:15 | P.PN ---
Date of Service: 09/14/24 Subjective Pending SNF, PT OT eval at discharge planning Acute pulmonary embolus, on Xarelto currently 94% on room Review of Systems 10-point ROS is otherwise unremarkable Physical Examination - Vital Signs Reviewed - Physical Exam General: Alert, oriented x 3, afebrile, obese HEENT: Atraumatic, Normocephalic Neck: Supple Respiratory: Clear to auscultation bilaterally, unlabored, Cardiovascular: No edema, Normal pulses, Regular rate/rhythm, Capillary refill: <2 Seconds Musculoskeletal: No clubbing, No swelling, moderate generalized weakness, Neurological: Normal speech, , Cranial nerves 3-12 intac Assessment And Plan - Plan Acute hypoxic respiratory failure secondary to R pulmonary embolism 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 coli and Enterococcus avium -On Macrobid Recent left hip fracture s/p surgical repair -Patient markedly deconditioned -PT/OT eval ordered fall precautions DVT prophylaxis -On Xarelto Disposition: Awaiting PT/OT eval , SNF for DC planning
[2024-09-15 07:50] LABS: Absolute Lymphocytes (CBC) 1.6 K/uL (0.7-4.9); Absolute Monocytes 0.8 K/uL (0.1-1.3); Absolute Neutrophil 6.8 K/uL (1.8-8.0); Basophils % 0.4 % (0-1.3); Eosinophils % 0.1 % (0-4.4); Hematocrit 31.9 % (36.0-45.0); Hemoglobin 10.7 g/dL (12.0-15.0); Lymphocytes % 17.7 % (15.3-44.8); MCH 30.5 pg (27.0-35.0); MCHC 33.6 g/dL (32.0-36.0); MCV 90.9 fL (80-100); MPV 6.6 fL (7.6-11.3); Monocytes % 8.5 % (3.3-12.3); Neutrophils % 73.3 % (41.7-73.7); Nucleated Red Blood Cells % 0.1 % (0-0); Platelets 353 thou/uL (152-406); RBC Red Blood Cell Count 3.51 M/uL (3.86-4.86); Red Cell Distribution Width 15.7 % (12.1-15.2)
[2024-09-15 08:00] LABS: Anion Gap 8.6 mEq/L (5.0-15.0); Potassium 3.6 mEq/L (3.5-5.1)
[2024-09-15] MEDS: ENSURE MAX PROTEIN 330 ML LIQUID PO SCH (21:00)
--- NOTE | 2024-09-15 22:59 | PN ---
Date of Progress Note: 09/15/2024 Subjective: The patient was admitted to the hospital with over volume, acute kidney injury. The pat ient still has some shortness of breath. Kidney function has improved. The patient had hyponatremia . Physical Examination: Vital Signs: When I saw the patient, blood pressure 122/73, pulse of 96. Chest: Crackles bilateral. Heart: S1, S2. Regular. Abdomen: Soft, nontender. Extremities: Plus edema. Neurologic: Alert. No focality. Laboratory Data: Sodium 132, potassium 3.6, bicarb 29, BUN 20, creatinine 0.6, calcium 7.7. Current Medications: The patient is on include albuterol, nitrofurantoin, Tylenol, rosuvastatin, Las ix, lidocaine breathing treatment. Assessment And Plan: 1.Hyponatremia secondary to dilutional. I am going to continue diuresing the patient and we will fo llow up. 2.Hypokalemia. We will supplement. 3.Hypertension, controlled, optimal. We will utilize blood pressure for more diuresis. MERY/PRIYANKA Voice ID: [id number] Report ID: [id number]
--- NOTE | 2024-09-16 07:13 | P.PN ---
Date of Service: 09/15/24 Subjective Pending SNF, PT OT eval at discharge planning Working with physical therapy, no acute distress noted Review of Systems 10-point ROS is otherwise unremarkable Physical Examination - Vital Signs Reviewed - Physical Exam General: Alert, oriented x 3, afebrile, obese HEENT: Atraumatic, Normocephalic Neck: Supple Respiratory: Clear to auscultation bilaterally, unlabored Cardiovascular: No edema, Normal pulses, , Capillary refill: <2 Seconds Musculoskeletal: No clubbing, No swelling, moderate generalized weakness, Neurological: Normal speech, , Cranial nerves 3-12 intac Assessment And Plan - Plan Acute hypoxic respiratory failure secondary to R pulmonary embolism 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 coli and Enterococcus avium -On Macrobid completed antibiotics prior to discharge Recent left hip fracture s/p surgical repair -Patient markedly deconditioned -PT/OT eval ordered fall precautions DVT prophylaxis -On Xarelto Disposition: Awaiting PT/OT eval , SNF for DC planning
--- NOTE | 2024-09-16 07:21 | P.DS ---
Admission Date: 09/08/24 Discharge Date: 09/17/24 Disposition: TRANSFER TO SKILLED NURSING Discharge Condition: GOOD Reason for Admission: shortness of breath and chest pain Brief History of Present Illness: Patient is a 73 year old female with a PMH of lung cancer with bone metastasis, DVT on xarelto at home, COPD, chronic respiratory failure on 2L at home. She presents with ongoing chest pain and shortness of breath. She reportedly went to an outpatient clinic appointment without her oxygen. As per sign out, she states that she forgot to wear her O2. She became short of breath and presented here for this reason. Work up in the in ER included CTA of the chest which revealed a segmental RML PE. Patient is currently on 2L. Additional work up reveals moderate hyponatremia with a Na+ of 124. She was on HCTZ prior to arrival. Her K+ is 3.4. Plan to admit for acute cystitis, SIADH, severe deconditioning, stage IV metastatic lung CA with mets to the bones. Physical Exam General: Alert, oriented x 3, afebrile, obese HEENT: Atraumatic, Normocephalic Neck: Supple Respiratory: Clear to auscultation bilaterally, unlabored, Cardiovascular: No edema, Normal pulses, Regular rate/rhythm, Capillary refill: <2 Seconds Musculoskeletal: No clubbing, No swelling, moderate generalized weakness, Neurological: Normal speech, , Cranial nerves 3-12 intac Hospital Course: Patient is a 73 year old female with a PMH of lung cancer with bone metastasis, DVT on xarelto at home, COPD, chronic respiratory failure on 2L at home. She presents with ongoing chest pain and shortness of breath. She reportedly went to an outpatient clinic appointment without her oxygen. As per sign out, she states that she forgot to wear her O2. She became short of breath and presented here for this reason. Work up in the in ER included CTA of the chest which revealed a segmental RML PE. Patient is currently on 2L. Additional work up reveals moderate hyponatremia with a Na+ of 124. She was on HCTZ prior to arrival. Her K+ is 3.4. Mrs. Roper was admitted for acute cystitis, SIADH, severe deconditioning, stage IV metastatic lung CA with mets to the bones, tolerating diet, stable to discharge to senior care facility to continue PT and OT, she will need to follow-up with oncology after discharge Discharge medications Lasix 20 mg daily Sodium tablets urea 15 mg-1 p.o. 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 coli and Enterococcus avium On Macrobid completed antibiotics prior to discharge Recent left hip fracture s/p surgical repair Patient markedly deconditioned PT/OT eval ordered fall precautions GOAL: Clear understanding of disease process INSTRUCTIONS: Physician Discharge Instructions: -Discharged to senior care facility for continued physical occupational therapy after discharge -Follow-up with oncology after discharge for metastatic lung cancer metastatic to the bone -Follow-up with PCP in 1 to 2 weeks -Please call Dr. Daly at [phone] if any questions regarding hospital stay -Please call nursing station at [phone] if any nursing or medication questions -Return to the emergency room if symptoms worsen Diet: ADA, low sodium Activity: Fall precautions Vital Signs/Physical Exam: Temp Pulse Resp BP Pulse Ox 97.4 F 92 H 18 136/70 98 09/16/24 04:00 09/16/24 04:00 09/16/24 05:47 09/16/24 04:00 09/16/24 05:47 Laboratory Data at Discharge: WBC 9.30 thou/uL (4.3-10.9) 09/15/24 07:39 Hgb 10.7 g/dL (12.0-15.0) L 09/15/24 07:39 Hct 31.9 % (36.0-45.0) L 09/15/24 07:39 Plt Count 353 thou/uL (152-406) 09/15/24 07:39 PT 14.6 SECONDS (9.4-12.5) H 09/08/24 17:41 INR 1.40 09/08/24 17:41 Sodium 132 mEq/L (136-145) L 09/15/24 07:39 Potassium 3.6 mEq/L (3.5-5.1) 09/15/24 07:39 BUN 20 mg/dL (7-18) H 09/15/24 07:39 Creatinine 0.65 mg/dL (0.55-1.02) 09/15/24 07:39 Glucose 107 mg/dL (74-106) H 09/15/24 07:39 Uric Acid 7.3 mg/dL (2.6-6.0) H 09/11/24 07:14 Phosphorus 2.6 mg/dL (2.5-4.9) 09/09/24 00:20 Magnesium 2.3 mg/dL (1.6-2.4) 09/12/24 07:19 Total Bilirubin 0.4 mg/dL (0.2-1.0) 09/10/24 05:55 AST 32 U/L (15-37) 09/10/24 05:55 ALT 19 U/L (13-56) 09/10/24 05:55 Alkaline Phosphatase 157 U/L (45-117) H 09/10/24 05:55 Triglycerides 111 mg/dL (<150) 09/09/24 04:00 Cholesterol 160 mg/dL (<200) 09/09/24 04:00 HDL Cholesterol 43 mg/dL (40-60) 09/09/24 04:00 Cholesterol/HDL Ratio 3.72 09/09/24 04:00 Lipase 22 U/L (13-75) 09/08/24 17:41 Home Medications: Albuterol Inhaler [Ventolin Inhaler*] 2 puff IH Q6H PRN 07/11/23 Rivaroxaban [Xarelto*] 15 mg PO DAILY 07/11/23 Umeclidinium Brm/Vilanterol Tr [Anoro Ellipta 62.5-25 Mcg INH] 1 each IH DAILY 07/11/23 Codeine/APAP [Tylenol #3*] 1 tab PO Q6HP PRN 07/07/24 Fluticasone [Flonase 50MCG Nasal [place]*] 2 sprays NS DAILY PRN 07/07/24 Gabapentin 300 mg PO BEDTIME 07/07/24 Pantoprazole [Protonix Tab*] 20 mg PO AC 07/07/24 Hydrocodone 10/APAP 325 [[place] 10/325*] 1 tab PO Q6HP PRN 09/09/24 methocarbamoL [Methocarbamol] 1 tab PO Q6HP PRN 09/09/24 Docusate/Senna [Senokot-S*] 1 tab PO BID tab 09/17/24 Ensure Max Protein 330 ml PO BID can 09/17/24 Furosemide [Lasix*] 20 mg PO DAILY #0 tab 09/17/24 Potassium Bicarbonate/Cit AC [Klor-Con-Ef 25 Meq Tab Eff] 25 meq PO DAILY 30 Days #30 tab 09/17/24 Sodium Chloride Tab [Sodium Chloride*] 1 gm PO TID tab 09/17/24 Urea [Ure-Na] 15 gm PO DAILY packet 09/17/24 Urea [Ure-Na] 15 gm PO DAILY 30 Days #30 packet 09/17/24 New Medications: Potassium Bicarbonate/Cit AC [Klor-Con-Ef 25 Meq Tab Eff] 25 meq PO DAILY 30 Days #30 tab Urea [Ure-Na] 15 gm PO DAILY 30 Days #30 packet Physician Discharge Instructions: Patient is a 74 year old female with a PMH of lung cancer with bone metastasis, DVT on xarelto at home, COPD, chronic respiratory failure on 2L at home. She presents with ongoing chest pain and shortness of breath. She reportedly went to an outpatient clinic appointment without her oxygen. As per sign out, she states that she forgot to wear her O2. She became short of breath and presented here for this reason. Work up in the in ER included CTA of the chest which revealed a segmental RML PE. Patient is currently on 2L. Additional work up reveals moderate hyponatremia with a Na+ of 124. She was on HCTZ prior to arrival. Her K+ is 3.4. 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 coli and Enterococcus avium On Macrobid completed antibiotics prior to discharge Recent left hip fracture s/p surgical repair Patient markedly deconditioned PT/OT eval ordered fall precautions GOAL: Clear understanding of disease process INSTRUCTIONS: Physician Discharge Instructions: -Discharged to senior care facility for continued physical occupational therapy after discharge -Follow-up with PCP in 1 to 2 weeks -Please call Dr. Daly at [phone] if any questions regarding hospital stay -Please call nursing station at [phone] if any nursing or medication questions -Return to the emergency room if symptoms worsen Diet: ADA, low sodium Activity: Fall precautions Diet: AHA Activity: Fall precautions Followup: Arianne Pierre MD [ACTIVE - CAN ADMIT] - NONE,NONE [Primary Care Provider] - Time spent managing pt's care (in minutes): 45
[2024-09-16 08:13] LABS: Absolute Basophils 0.1 K/uL (0-0.5); Absolute Lymphocytes (CBC) 1.8 K/uL (0.7-4.9); Absolute Neutrophil 7.4 K/uL (1.8-8.0); Basophils % 0.7 % (0-1.3); Eosinophils % 0.1 % (0-4.4); Hemoglobin 10.9 g/dL (12.0-15.0); Lymphocytes % 17.7 % (15.3-44.8); MCH 30.3 pg (27.0-35.0); MCV 91.8 fL (80-100); MPV 6.7 fL (7.6-11.3); Neutrophils % 71.5 % (41.7-73.7); Platelets 333 thou/uL (152-406); RBC Red Blood Cell Count 3.59 M/uL (3.86-4.86); Red Cell Distribution Width 15.8 % (12.1-15.2)
[2024-09-16 08:45] LABS: Anion Gap 5.8 mEq/L (5.0-15.0); Potassium 3.8 mEq/L (3.5-5.1)
[2024-09-16] MEDS: FUROSEMIDE 40 MG/4 ML VIAL IV ONE (10:42)
--- NOTE | 2024-09-16 11:14 | PN ---
Date of Progress Note: 09/16/2024 Subjective: The patient was admitted with over volume, hyponatremia, dilutional. The patient was st arted on diuresis. The patient responded very well. Physical Examination: Vital Signs: When I saw the patient, blood pressure 125/68, pulse of 93, afebrile. Chest: Crackles bilateral. Heart: S1, S2. Systolic murmur. Abdomen: Soft, nontender. Extremities: Plus edema. Neurologic: Alert. No focality. Laboratory Data: Hemoglobin 10.9. Sodium 136, potassium 3.8, bicarb 32, BUN 18, creatinine 0.4, noman cium 8.4. Current Medications: The patient is on include methocarbamol, Xarelto, gabapentin, Ensure, Lasix 20 daily. Assessment And Plan: 1.Hyponatremia secondary to over volume, dilutional. I am going to continue the patient on diuresis . I am going to give the patient extra dose of Lasix today and we will follow up. 2.Hypertension, controlled, optimal. Continue to monitor. 3.Hypokalemia. We will supplement. 4.Anasarca secondary to cardiorenal, continue diuresis. MA/MODL Voice ID: [id number] Report ID: [id number]
--- NOTE | 2024-09-16 11:29 | PN ---
Date of Progress Note: 09/16/2024 Subjective: The patient was admitted with hyponatremia secondary to dilutional patient after diuresi s. Sodium started trending up. Laboratory Data: Hemoglobin 10.9. Sodium 136, potassium 3.8, bicarb 32, BUN 18, creatinine 0.4, noman cium 8.4. Current Medications: The patient is on include: 1.Albuterol. 2.Methocarbamol. 3.Ensure. 4.Lasix. 5.Bisacodyl. Assessment And Plan: 1.Hyponatremia secondary to dilutional. We will continue the patient on diuresis. We will give ext ra dose of Lasix today. The patient if need to be discharged, okay to discharged on Lasix 20 mg andrew y. 2.Hypertension, controlled, optimal. Continue current treatment. 3.UTI. Continue current antibiotic. The patient cleared from the Renal standpoint for discharge mark carey. MERY/PRIYANKA Voice ID: [id number] Report ID: [id number]
--- NOTE | 2024-09-16 16:57 | P.PN ---
Date of Service: 09/16/24 Subjective No acute pain or distress noted, working with physical therapy Pending discharge to senior living O2 weaned to 2 L per nasal cannula PT, OT, for deconditioning Review of Systems 10-point ROS is otherwise unremarkable Physical Examination - Vital Signs Reviewed - Physical Exam General: Alert, oriented x 3, afebrile, no acute distress HEENT: Atraumatic, Normocephalic Neck: Supple Respiratory: Clear to auscultation bilaterally Cardiovascular: No edema, Normal pulses, , Capillary refill: <2 Seconds Musculoskeletal: No clubbing, No swelling, moderate generalized weakness, Neurological: Normal speech, , Cranial nerves 3-12 intact Assessment And Plan - Plan Acute hypoxic respiratory failure secondary to R pulmonary embolism improving Stage IV metastatic lung cancer mets to the bones Severe deconditioning, max assist with transfers -CTA positive for PE -Currently on Xarelto -On prn Opioids for pain control Follow-up with oncology after discharge SNF, PT, OT, senior living for discharge planning O2 2 L per nasal cannula Acute hyponatremia 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 daily Acute cystitis improved -Urine cultures positive for E. coli and Enterococcus avium -On Macrobid completed antibiotics prior to discharge Recent left hip fracture s/p surgical repair -Patient markedly deconditioned -PT/OT eval ordered fall precautions DVT prophylaxis -On Xarelto Disposition: Awaiting PT/OT eval , SNF for DC planning
[2024-09-16 23:57] VITALS: O2SAT 98
[2024-09-17 07:43] LABS: Absolute Basophils 0.1 K/uL (0-0.5); Absolute Eosinophils 0.1 K/uL (0-0.5); Absolute Lymphocytes (CBC) 1.8 K/uL (0.7-4.9); Absolute Monocytes 1.1 K/uL (0.1-1.3); Absolute Neutrophil 8.3 K/uL (1.8-8.0); Basophils % 0.6 % (0-1.3); Eosinophils % 0.5 % (0-4.4); Hematocrit 34.3 % (36.0-45.0); Hemoglobin 11.3 g/dL (12.0-15.0); Lymphocytes % 15.6 % (15.3-44.8); MCH 30.1 pg (27.0-35.0); MCHC 32.9 g/dL (32.0-36.0); MCV 91.5 fL (80-100); MPV 6.8 fL (7.6-11.3); Monocytes % 9.6 % (3.3-12.3); Neutrophils % 73.7 % (41.7-73.7); Nucleated Red Blood Cells % 0.1 % (0-0); Platelets 350 thou/uL (152-406); RBC Red Blood Cell Count 3.75 M/uL (3.86-4.86)
[2024-09-17 07:52] LABS: Anion Gap 7.6 mEq/L (5.0-15.0); Potassium 3.6 mEq/L (3.5-5.1)
[2024-09-17 10:22] VITALS: BP 126/74
[2024-09-17 10:39] VITALS: TEMP 97.6
--- NOTE | 2024-09-17 14:13 | P.PN ---
Date of Service: 09/17/24 Subjective PT, OT, for deconditioning, pending [facility] facility for discharge 98% on 2 L Review of Systems 10-point ROS is otherwise unremarkable Physical Examination - Vital Signs Reviewed - Physical Exam General: Alert, oriented x 3, afebrile, obese HEENT: Atraumatic, Normocephalic Neck: Supple Respiratory: Clear to auscultation bilaterally Cardiovascular: No edema, Normal pulses, , Capillary refill: <2 Seconds Musculoskeletal: No clubbing, No swelling, moderate generalized weakness, Neurological: Normal speech, , Cranial nerves 3-12 intact Assessment And Plan - Plan Acute hypoxic respiratory failure secondary to R pulmonary embolism improving 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 daily Acute cystitis improved -Urine cultures positive for E. coli and Enterococcus avium -On Macrobid completed antibiotics prior to discharge Recent left hip fracture s/p surgical repair -Patient markedly deconditioned -PT/OT eval ordered fall precautions DVT prophylaxis -On Xarelto Disposition: Awaiting PT/OT eval , SNF for DC planning
--- NOTE | 2024-09-18 00:28 | PN ---
Date of Progress Note: 09/17/2024 Chief Complaint: Hyponatremia. Subjective: The patient was admitted for dilutional hyponatremia. The patient is on diuretic. Lasi x was given for volume depletion and Lasix will be adjusted to maintenance dose. Review of Systems: Denies chest pain, palpitation. Physical Examination: Lungs: Clear to auscultation bilaterally. Heart: S1, S2. Abdomen: Soft, benign. Extremities: No edema. Impression And Plan: 1.Hyponatremia secondary to dilutional effect. Continue diuretics. The patient will continue Lasix along with HCTZ. 2.Hypertension, controlled, optimal. Continue current treatment. 3.Urinary tract infection, on antibiotics. The patient is currently asymptomatic. EB/MODL Voice ID: [id number] Report ID: [id number]
== END 2024-09-17 18:10 | DRG 175 ==
LOC: ER 17:19 → ERHOLD 19:04 → 2ND 19:27
PROVIDERS: ADMIT Internal Medicine; ATTEND Hospitalist
PROC: 4A033R1 Measurement of Arterial Saturation, Peripheral, Percutaneous Approach (ICD-10-PCS; principal; 2024-09-08)
DX: I26.99 Other pulmonary embolism without acute cor pulmonale (principal); J96.01 Acute respiratory failure with hypoxia; N30.00 Acute cystitis without hematuria; J44.1 Chronic obstructive pulmonary disease with (acute) exacerbation; E22.2 Syndrome of inappropriate secretion of antidiuretic hormone; C34.32 Malignant neoplasm of lower lobe, left bronchus or lung; C34.31 Malignant neoplasm of lower lobe, right bronchus or lung; C79.51 Secondary malignant neoplasm of bone; N17.9 Acute kidney failure, unspecified; E87.6 Hypokalemia; I10 Essential (primary) hypertension; S72.002D Fracture of unspecified part of neck of left femur, subsequent encounter for closed fracture with routine healing; T78.3XXA Angioneurotic edema, initial encounter; B95.2 Enterococcus as the cause of diseases classified elsewhere; B96.20 Unspecified Escherichia coli [E. coli] as the cause of diseases classified elsewhere; Z99.81 Dependence on supplemental oxygen; Z88.8 Allergy status to other drugs, medicaments and biological substances; Z79.01 Long term (current) use of anticoagulants; Z86.711 Personal history of pulmonary embolism; Z85.118 Personal history of other malignant neoplasm of bronchus and lung; Z85.830 Personal history of malignant neoplasm of bone; Z86.718 Personal history of other venous thrombosis and embolism; Z90.710 Acquired absence of both cervix and uterus; Z79.899 Other long term (current) drug therapy
CPT/HCPCS: 36415; 36600; 71045; 71275; 74018; 80048; 80053; 80061; 80076; 81001; 82533; 82805; 83605; 83690; 83735; 83880; 83930; 83935; 84100; 84132; 84300; 84439; 84443; 84484; 84550; 85025; 85610; 87040; 87077; 87086; 87088; 87186; 93005; 93306; 93970; 94640; 96361; 96374; 96375; 97110; 97161; 97165; 97530; 99285; J0696; J1171; J1720; J1940; J2270; J2405; J2550; J3010; J7030; J7040; J7614; Q9967

== ENCOUNTER 2024-10-01 18:17 | Observation (INO) | payer OTHER ==
[2024-10-01 18:48] LABS: Absolute Basophils 0.1 K/uL (0-0.5); Absolute Eosinophils 0.1 K/uL (0-0.5); Absolute Lymphocytes (CBC) 1.4 K/uL (0.7-4.9); Absolute Monocytes 0.6 K/uL (0.1-1.3); Absolute Neutrophil 6.1 K/uL (1.8-8.0); Eosinophils % 0.9 % (0-4.4); Hematocrit 32.3 % (36.0-45.0); Hemoglobin 10.6 g/dL (12.0-15.0); Lymphocytes % 16.9 % (15.3-44.8); MCH 30.3 pg (27.0-35.0); MCHC 32.9 g/dL (32.0-36.0); MCV 92.1 fL (80-100); MPV 6.5 fL (7.6-11.3); Monocytes % 7.6 % (3.3-12.3); Neutrophils % 73.6 % (41.7-73.7); Platelets 397 thou/uL (152-406); RBC Red Blood Cell Count 3.51 M/uL (3.86-4.86); Red Cell Distribution Width 16.5 % (12.1-15.2)
[2024-10-01 18:56] LABS: PT Prothrombin Time 18.9 SECONDS (9.4-12.5); Protime INR 1.81
[2024-10-01 19:10] LABS: AST/SGOT 18 U/L (15-37); Albumin 2.2 g/dL (3.4-5.0); Albumin/Globulin Ratio 0.6 (1.1-1.8); Alkaline Phosphatase 181 U/L (45-117); Anion Gap 11.3 mEq/L (5.0-15.0); BUN Blood Urea Nitrogen 7 mg/dL (7-18); Bicarbonate 27 mEq/L (21-32); Bilirubin Total 0.3 mg/dL (0.2-1.0); Globulin 3.9 g/dL (2.3-3.5); Glomerular Filtration Rate 99 ml/min (=/>90); Glucose Level 73 mg/dL (74-106); Lipase 10 U/L (13-75); Magnesium 1.9 mg/dL (1.6-2.4); NT PRO-BNP 215 pg/mL (<125); Potassium 3.3 mEq/L (3.5-5.1); Protein, Total 6.1 g/dL (6.4-8.2); Sodium Level 136 mEq/L (136-145); Troponin High Sensitivity 9.5 pg/mL (<58.9)
--- NOTE | 2024-10-01 19:11 | RAD REPORT ---
Procedure: Chest Single View HISTORY: Cough COMPARISON: August 2024 FINDINGS: Bilateral pulmonary nodules unchanged. Small left pleural effusion. Mild left basilar atelectasis The heart is normal size.
[2024-10-01 19:14] LABS: ALT/SGPT < 14 U/L (13-56); Bilirubin Direct < 0.2 mg/dL (0-0.2); Bilirubin Indirect, Calculated 0.1 mg/dL (0.2-0.8)
--- NOTE | 2024-10-01 19:25 | ER ---
Nurse's Notes [facility] Name: Kaylah Roper Age: 74 yrs Sex: Female : 1950 Arrival Date: 10/01/2024 Time: 18:17 Bed 7 Private MD: Diagnosis: Chest pain, unspecified;Obesity, unspecified;terminal operations manager (current) use of anticoagulants;Anxiety disorder, unspecified;Hypokalemia;Pleural effusion in other conditions classified elsewhere;Atelectasis Presentation: 10/01 18:28 Chief complaint: EMS states: Toned out for CP, pressure, x 1.5 hrs, [place] jl7 gave 3 nitro, EMS gave 324 ASA. Coronavirus screen: At this time, the client does not indicate any symptoms associated with coronavirus-19. Ebola Screen: No symptoms or risks identified at this time. Initial Sepsis Screen: Does the patient meet any 2 criteria? No. Patient's initial sepsis screen is negative. Does the patient have a suspected source of infection? No. Patient's initial sepsis screen is negative. Risk Assessment: Do you want to hurt yourself or someone else? Patient reports no desire to harm self or others. Onset of symptoms was October 01, 2024 at 17:00. 18:28 Method Of Arrival: EMS: [facility] 18:28 Acuity: JASPER 2 jl7 18:33 Care prior to arrival: Medication(s) given: ASA, 81 mg, x 4, IV initiated. 20 GA, in jl7 the right antecubital area. Triage Assessment: 18:32 General: Appears in no apparent distress. uncomfortable, Behavior is calm, cooperative, jl7 appropriate for age. Pain: Complains of pain in chest Pain currently is 1 out of 10 on a pain scale. at worst was 7 out of 10 on a pain scale. Cardiovascular: Patient's skin is warm and dry. Rhythm is regular. Historical: - Allergies: 18:32 budesonide; jl7 18:32 formoterol fumarate; jl7 18:32 glycopyrrolate; jl7 - PMHx: 18:32 bone cancer (rib fractures); COPD; DVTleft leg; Hypertensive disorder; Lung Cancer; rib jl7 fractures; - PSHx: 18:32 hysterectomy; Ligation of fallopian tube; jl7 - Immunization history:: Adult Immunizations unknown. - Infectious Disease History:: Denies. - Social history:: Smoking status: Patient denies any tobacco usage or history of. Screenin:10 Abuse screen: Denies threats or abuse. Nutritional screening: No deficits noted. jj7 Tuberculosis screening: No symptoms or risk factors identified. 21:30 [facility] ED Fall Risk Assessment (Adult) History of falling in the last 3 months, jj7 including since admission No falls in past 3 months (0 pts) Confusion or Disorientation No (0 pts) Intoxicated or Sedated No (0 pts) Impaired Gait Yes (1 pt) Mobility Assist Device Used Yes (1 pt) Altered Elimination Yes (1 pt) Score/Fall Risk Level 3 or more points = High Risk Oriented to surroundings, Maintained a safe environment, Educated pt \T\ family on fall prevention, incl call for assistance when getting out of bed, Assessed \T\ reinforced patient's understanding of fall precautions. Assessment: 19:30 Reassessment: ASSUMED CARE OF PT. PT LYING IN BED. NO DISTRESS NOTED. VS STABLE. ORDER jj7 FOR PO K+ BUT PT STATES IT MAKES HER NAUSEATED AND SHE HAS CHRONIC BACK PAIN. INFORMED MD. General: Appears in no apparent distress. comfortable, Behavior is calm, cooperative, appropriate for age. Pain: Complains of pain in back Pain does not radiate. Quality of pain is described as Pain began years ago. CHRONIC. Cardiovascular: Denies chest pain, palpitations. Musculoskeletal: Reports pain in back. Vital Signs: 18:28 BP 101 / 88; Pulse 97; Resp 19; Temp 98.7; Pulse Ox 100% on 2 lpm NC; Pain 1/10; jl7 18:43 BP 109 / 67; Pulse 94; Resp 17; Pulse Ox 95% 2 lpm ; jl7 19:30 BP 113 / 63; Pulse 93; Resp 19; Pulse Ox 97% ; jj7 20:30 BP 125 / 71; Pulse 94; Resp 18; Pulse Ox 100% ; jj7 18:28 Pain Scale: Adult jl7 ED Course: 18:27 Patient arrived in ED. jl7 18:27 Gorge Rich MD is Attending Physician. [facility] 18:32 Triage completed. jl7 18:32 Arm band placed on right wrist. jl7 18:33 EKG done, by ED staff, reviewed by Gorge Rich MD. jl7 18:43 Initial lab(s) drawn, by me, sent to lab. Maintain EMS IV. Dressing intact. Good blood jl7 return noted. Site clean \T\ dry. Gauge \T\ site: 20 R AC. Flushed with 10 mL NS. 18:57 XRAY Chest (1 view) In Process Unspecified. EDMN 19:23 Hunter Hunt MD is Hospitalizing Provider. [facility] 19:45 Farrah Ny, BRENNAN is Primary Nurse. j7 20:00 Patient has correct armband on for positive identification. Placed in gown. Bed in low jj7 position. Call light in reach. Side rails up X2. Adult w/ patient. Provided Education on: USE OF CALL DYER. Client placed on continuous cardiac and pulse oximetry monitoring. NIBP monitoring applied. 21:50 No provider procedures requiring assistance completed. Patient admitted, IV remains in jj7 place. Patient maintains SpO2 saturation greater than 95% on room air. Administered Medications: 19:49 CANCELLED (Duplicate Order): hydrocodone-acetaminophen5 mg-325 mg 2 tabs PO once br2 19:56 Drug: Ondansetron IVP 4 mg IVP once; over 2 minutes Route: IVP; Site: right antecubital;jj7 21:32 Follow up: Response: Nausea is decreased jj7 19:56 Drug: HYDROcodone-acetaminophen PO 5 mg-325 mg 1 tabs PO once Route: PO; jj7 21:32 Follow up: Response: Other; PT STATES SHE VOMITED UP THE NORCO jj7 20:00 Drug: Potassium PO Effervescent Tablet 50 mEq PO once; dissolve in 4 ounces of water or ha1 juice Route: PO; 21:56 Follow up: Response: No adverse reaction jj7 Medication: 21:55 VIS not applicable for this client. jj7 Intake: Outcome: 19:24 Decision to Hospitalize by Provider. [facility] 21:33 Admitted to Med/surg accompanied by tech, room 201, Report called to SBAR FAXED TO 2ND [facility] FLOOR. RECEIVED BY NINA AMIN 21:50 Condition: good jj7 21:50 Patient left the ED. [facility] Signatures: Dispatcher [employer] EDMN Gorge Rich MD MD cha Leal, Jahala RN BRENNAN [email or web address] Marlee Samayoa RN RN ha1 Farrah Ny RN RN jj7 Tamiko Morrow RN br2 Corrections: (The following items were deleted from the chart) 21:57 21:56 Patient left the ED. aida jj7
--- NOTE | 2024-10-01 19:25 | EDPHYS ---
Physician Documentation [facility] Name: Kaylah Roper Age: 74 yrs Sex: Female : 1950 Arrival Date: 10/01/2024 Time: 18:17 Bed 7 Private MD: ED Physician Gorge Rich HPI: 10/01 18:49 This 74 yrs old Black Female presents to ER via EMS with complaints of Chest Pain. gibran 18:49 The patient or guardian reports chest pain that is located primarily in the substernal gibran area, anterior chest wall, bilaterally. Onset: just prior to arrival, today. The pain does not radiate. Associated signs and symptoms: Pertinent positives: lightheadedness. The chest pain is described as a pressure, squeezing. Modifying factors: The symptoms are alleviated by nothing. the symptoms are aggravated by nothing. ANXIETY. Severity of pain: At its worst the pain was moderate in the emergency department the pain has resolved and did so just prior to arrival. The patient has experienced similar episodes in the past, multiple times. Historical: - Allergies: 18:32 budesonide; jl7 18:32 formoterol fumarate; jl7 18:32 glycopyrrolate; jl7 - PMHx: 18:32 bone cancer (rib fractures); COPD; DVTleft leg; Hypertensive disorder; Lung Cancer; rib jl7 fractures; - PSHx: 18:32 hysterectomy; Ligation of fallopian tube; jl7 - Immunization history:: Adult Immunizations unknown. - Infectious Disease History:: Denies. - Social history:: Smoking status: Patient denies any tobacco usage or history of. ROS: 18:50 Constitutional: Negative for fever, chills, and weight loss, Eyes: Negative for injury, gibran pain, redness, and discharge, ENT: Negative for injury, pain, and discharge, Neck: Negative for injury, pain, and swelling, Respiratory: Negative for shortness of breath, cough, wheezing, and pleuritic chest pain, Abdomen/GI: Negative for abdominal pain, nausea, vomiting, diarrhea, and constipation, Back: Negative for injury and pain, : Negative for injury, bleeding, discharge, and swelling, MS/Extremity: Negative for injury and deformity, Skin: Negative for injury, rash, and discoloration, Neuro: Negative for headache, weakness, numbness, tingling, and seizure, Psych: Negative for depression, anxiety, suicide ideation, homicidal ideation, and hallucinations, Allergy/Immunology: Negative for hives, rash, and allergies, Endocrine: Negative for neck swelling, polydipsia, polyuria, polyphagia, and marked weight changes, 18:50 Cardiovascular: Positive for chest pain, of the chest, Exam: 18:50 Constitutional: This is a well developed, well nourished patient who is awake, alert, gibran and in no acute distress. Head/Face: Normocephalic, atraumatic. Eyes: Pupils equal round and reactive to light, extra-ocular motions intact. Lids and lashes normal. Conjunctiva and sclera are non-icteric and not injected. Cornea within normal limits. Periorbital areas with no swelling, redness, or edema. ENT: Nares patent. No nasal discharge, no septal abnormalities noted. Tympanic membranes are normal and external auditory canals are clear. Oropharynx with no redness, swelling, or masses, exudates, or evidence of obstruction, uvula midline. Mucous membranes moist. Neck: Trachea midline, no thyromegaly or masses palpated, and no cervical lymphadenopathy. Supple, full range of motion without nuchal rigidity, or vertebral point tenderness. No Meningismus. Chest/axilla: Normal chest wall appearance and motion. Nontender with no deformity. No lesions are appreciated. Cardiovascular: Regular rate and rhythm with a normal S1 and S2. No gallops, murmurs, or rubs. Normal PMI, no JVD. No pulse deficits. Respiratory: Lungs have equal breath sounds bilaterally, clear to auscultation and percussion. No rales, rhonchi or wheezes noted. No increased work of breathing, no retractions or nasal flaring. Abdomen/GI: Soft, non-tender, with normal bowel sounds. No distension or tympany. No guarding or rebound. No evidence of tenderness throughout. Back: No spinal tenderness. No costovertebral tenderness. Full range of motion. Skin: Warm, dry with normal turgor. Normal color with no rashes, no lesions, and no evidence of cellulitis. MS/ Extremity: Pulses equal, no cyanosis. Neurovascular intact. Full, normal range of motion., bilateral aka Neuro: Awake and alert, GCS 15, oriented to person, place, time, and situation. Cranial nerves II-XII grossly intact. Motor strength 5/5 in all extremities. Sensory grossly intact. Cerebellar exam normal. Normal gait. Psych: Awake, alert, with orientation to person, place and time. Behavior, mood, and affect are within normal limits. 18:50 ECG was reviewed by the Attending Physician. 18:51 Musculoskeletal/extremity: Circulation is intact in all extremities. Sensation intact. gibran Compartment Syndrome exam of affected extremity: is normal. DVT Exam: No signs of deep vein thrombosis. no pain, no swelling, no tenderness, negative Homans' sign noted on exam, no appreciated bluish discoloration, no erythema, no increased warmth, Vital Signs: 18:28 BP 101 / 88; Pulse 97; Resp 19; Temp 98.7; Pulse Ox 100% on 2 lpm NC; Pain 1/10; jl7 18:43 BP 109 / 67; Pulse 94; Resp 17; Pulse Ox 95% 2 lpm ; jl7 19:30 BP 113 / 63; Pulse 93; Resp 19; Pulse Ox 97% ; jj7 20:30 BP 125 / 71; Pulse 94; Resp 18; Pulse Ox 100% ; jj7 18:28 Pain Scale: Adult jl7 MDM: 18:27 Medical Screening Exam initiated gibran 18:52 Differential diagnosis: abnormal EKG, acute myocardial infarction, acute pericarditis, gibran anxiety, chest wall pain, Cholelithiasis costochondritis, gastritis, herpes zoster, pancreatitis, peptic ulcer disease, pericarditis, pleurisy, pulmonary embolus, stable angina, unstable angina. HEART Score: ECG: Non specific repolarization disturbance / LBTB / PM (1), Age: > or = 65 years (2), Risk Factors: > or = 3 Risk factors for atherosclerotic disease (2), [Hypercholesterolemia] [Hypertension] [+ Family HX] [Obesity] Troponin: < or = 1 x Normal Limit (0). The patient was given aspirin in the Emergency Department. MARGI Risk Score: 1 - patient's age is greater or equal to 65 years, 1 - Three or more CAD risk factors, 1- Known CAD, 1 - ASA use in past 7 days. Data reviewed: vital signs, nurses notes, EMS record, lab test result(s), EKG, radiologic studies, plain films. Consideration of Admission/Observation Escalation of care including admission/observation considered. I considered the following discharge prescriptions or medication management in the emergency department Medications were administered in the Emergency Department. See MAR. Independent interpretation of the following test(s) in the Emergency Department EKG: See my EKG interpretation above. Test considered but Not performed: Ultrasound NO [address]: NO CT PE. Care significantly affected by the following chronic conditions: Diabetes, Hypertension, Congestive Heart Failure, Chronic Obstructive Pulmonary Disease, Obesity, Cancer. Counseling: I had a detailed discussion with the patient and/or guardian regarding the historical points, exam findings, and any diagnostic results supporting the discharge/admit diagnosis, lab results, radiology results, the need for further work-up and treatment in the hospital. 10/01 18:28 Order name: Basic Metabolic Panel; Complete Time: 19:19 gibran 10/01 18:28 Order name: CBC with Diff; Complete Time: 19:19 gibran 10/01 18:28 Order name: LFT's; Complete Time: 19:19 gibran 10/01 18:28 Order name: Magnesium; Complete Time: 19:19 gibran 10/01 18:28 Order name: NT PRO-BNP; Complete Time: 19:19 gibran 10/01 18:28 Order name: PT-INR; Complete Time: 19:19 gibran 10/01 18:28 Order name: Troponin HS; Complete Time: 19:19 gibran 10/01 18:28 Order name: Lipase; Complete Time: 19:19 gibran 10/01 18:28 Order name: Urinalysis w/ reflexes gibran 10/01 20:13 Order name: Urinalysis w/ reflexes EDMS 10/01 20:13 Order name: CBC with Automated Diff EDMS 10/01 20:13 Order name: CBC with Automated Diff EDMS 10/01 20:13 Order name: Comprehensive Metabolic Panel EDMS 10/01 20:13 Order name: Comprehensive Metabolic Panel EDMS 10/01 20:13 Order name: Troponin High Sensitivity EDMS 10/01 20:13 Order name: Troponin High Sensitivity EDMS 10/01 20:13 Order name: Troponin High Sensitivity EDMS 10/01 20:13 Order name: Troponin High Sensitivity EDMS 10/01 18:28 Order name: XRAY Chest (1 view); Complete Time: 19:19 gibran 10/01 18:28 Order name: EKG; Complete Time: 18:28 gibran 10/01 18:28 Order name: Cardiac monitoring; Complete Time: 18:33 [facility] 10/01 18:28 Order name: EKG - Nurse/Tech; Complete Time: 18:33 [facility] 10/01 18:28 Order name: IV Saline Lock; Complete Time: 18:44 [facility] 10/01 18:28 Order name: Labs collected and sent; Complete Time: 18:33 [facility] 10/01 18:28 Order name: O2 Per Protocol; Complete Time: 18:33 [facility] 10/01 18:28 Order name: O2 Sat Monitoring; Complete Time: 18:33 [facility] EC:50 Rate is 97 beats/min. Rhythm is regular. QRS [place] is Normal. MT interval is normal. QRS gibran interval is normal. QT interval is normal. No Q waves. T waves are Normal. No ST changes noted. Clinical impression: NSR w/ Non-specific ST/T Changes and No evidence of ischemia. Interpreted by me. Reviewed by me. Administered Medications: 19:49 CANCELLED (Duplicate Order): hydrocodone-acetaminophen5 mg-325 mg 2 tabs PO once br2 19:56 Drug: Ondansetron IVP 4 mg IVP once; over 2 minutes Route: IVP; Site: right antecubital;jj7 21:32 Follow up: Response: Nausea is decreased jj7 19:56 Drug: HYDROcodone-acetaminophen PO 5 mg-325 mg 1 tabs PO once Route: PO; jj7 21:32 Follow up: Response: Other; PT STATES SHE VOMITED UP THE NORCO jj7 20:00 Drug: Potassium PO Effervescent Tablet 50 mEq PO once; dissolve in 4 ounces of water or ha1 juice Route: PO; 21:56 Follow up: Response: No adverse reaction jj7 Disposition Summary: 10/01/24 19:24 Hospitalization Ordered Notes: Hospitalization Status: Observation gibran Provider: Hunter Hunt cha Location: Telemetry/MedSurg (observation) gibran Condition: Stable gibran Problem: new gibran Symptoms: have improved gibran Bed/Room Type: Standard gibran Room Assignment: 201(10/01/24 21:07) sp Diagnosis - Chest pain, unspecified gibran - Obesity, unspecified 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 EDMS EDMS 18:29 18:28 CBC+H.LAB.BRZ ordered. EDMS EDMS 18:29 18:28 HEPATIC FUNCTION+C.LAB.BRZ ordered. EDMS EDMS 18:29 18:28 MAGNESIUM+C.LAB.BRZ ordered. EDMS EDMS 18:29 18:28 PROBNP+C.LAB.BRZ ordered. EDMS EDMS 18:29 18:28 PROTIME (+INR)+COAG.LAB.BRZ ordered. EDMS EDMS 18:29 18:28 Troponin High Sensitivity+C.LAB.BRZ ordered. EDMS EDMS 18:29 18:28 LIPASE+C.LAB.BRZ ordered. EDMS EDMS 18:29 18:28 Urinalysis+U.LAB.BRZ ordered. EDMS EDMS 19:49 19:49 HYDROcodone-acetaminophen PO 5 mg-325 mg 2 tabs PO once ordered. br2 br2 21:07 19:24 gibran romo
[2024-10-01] MEDS ORDERED: POTASSIUM 25 MEQ EFFERV TAB ONE (19:39)
[2024-10-01] MEDS ORDERED: HYDROCODONE/APAP 5/325 MG TAB ONE (19:51)
[2024-10-01] MEDS ORDERED: ONDANSETRON 4 MG/2 ML VIAL ONE (19:51)
--- NOTE | 2024-10-01 20:08 | P.HP ---
Certification for Inpatient Patient admitted to: Observation With expected LOS: <2 Midnights Practitioner: I am a practitioner with admitting privileges, knowledge of patient current condition, hospital course, and medical plan of care. Services: Services provided to patient in accordance with Admission requirements found in Title 42 Section 412.3 of the Code of Federal Regulations Patient History Date of Service: 10/01/24 Reason for admission: CP History of Present Illness: 74 yrs old Female with past medical history of COPD, DVT left leg, hypertension, history of lung cancer, rib fractures, was brought to ER with chest pain. Pain is located substernal pressure-like feeling radiating to the left side of the chest started today, pressure-like 6 out of 10 in severity. Denies any previous history of CAD. No fever or chills. No sick contacts. Denies any nausea vomiting or diarrhea. Pain is intermittent. Patient was assessed in the ER and is admitted for further management of chest pain rule out ACS Allergies budesonide [From Breztri Aerosphere] Allergy (Verified 09/09/24 06:08) unknown formoterol [From Breztri Aerosphere] Allergy (Verified 09/09/24 06:08) unknown glycopyrrolate [From Breztri Aerosphere] Allergy (Verified 09/09/24 06:08) unknown Home medications list reviewed: Yes Home Medications: Albuterol Inhaler [Ventolin Inhaler*] 2 puff IH Q6H PRN 07/11/23 Rivaroxaban [Xarelto*] 15 mg PO DAILY 07/11/23 Umeclidinium Brm/Vilanterol Tr [Anoro Ellipta 62.5-25 Mcg INH] 1 each IH DAILY 07/11/23 Fluticasone [Flonase 50MCG Nasal [place]*] 2 sprays NS DAILY PRN 07/07/24 Gabapentin 300 mg PO BEDTIME 07/07/24 Pantoprazole [Protonix Tab*] 20 mg PO AC 07/07/24 Hydrocodone 10/APAP 325 [[place] 10/325*] 1 tab PO Q6HP PRN 09/09/24 methocarbamoL [Methocarbamol] 1 tab PO Q6HP PRN 09/09/24 Docusate/Senna [Senokot-S*] 1 tab PO BID tab 09/17/24 Potassium Bicarbonate/Cit AC [Klor-Con-Ef 25 Meq Tab Eff] 25 meq PO DAILY 30 Days #30 tab 09/17/24 Sodium Chloride Tab [Sodium Chloride*] 1 gm PO TID tab 09/17/24 - Past Medical/Surgical History Diabetic: No Past Medical History: Reviewed- Non-Contributory -: lung cancer -: COPD -: L4 metastasis Past Surgical History: Reviewed- Non-Contributory -: L hip sx hysterectomy - Family History Family History: Reviewed- Non-Contributory - Social History Smoking Status: Former smoker Alcohol use: No CD- Drugs: No Caffeine use: No Review of Systems 10-point ROS is otherwise unremarkable Physical Examination - Vital Signs Temperature: 98.7 F Blood Pressure: 101/88 Pulse: 92 Respirations: 18 Pulse Ox (%): 94 - Physical Exam General: Alert, In no apparent distress, Oriented x3, Obese HEENT: Atraumatic, Normocephalic Neck: Supple Respiratory: Clear to auscultation bilaterally, Normal air movement Cardiovascular: No edema, Regular rate/rhythm, Normal S1 S2 Capillary refill: <2 Seconds Gastrointestinal: Soft and benign, W/out hepatosplenomegaly Musculoskeletal: No clubbing, No swelling Integumentary: No rashes Neurological: Normal speech, Normal strength at 5/5 x4 extr, Cranial nerves 3-12 intact Lymphatics: No axilla or inguinal lymphadenopathy - Studies Laboratory Data (last 24 hrs) 10/01/24 10/01/24 10/01/24 18:40 18:40 18:40 WBC 8.30 Hgb 10.6 L Hct 32.3 L Plt Count 397 PT 18.9 H INR 1.81 Sodium 136 Potassium 3.3 L BUN 7 Creatinine 0.52 L Glucose 73 L Magnesium 1.9 Total Bilirubin 0.3 AST 18 ALT < 14 Alkaline Phosphatase 181 H Lipase 10 L Assessment and Plan - Plan Chest pain rule out ACS Will trend cardiac enzymes Will monitor telemetry Started on aspirin and statin EKG did not show any acute changes suggestive of ischemia Cardiology consult Pain control Will get a D-dimer CT chest if D-dimer is elevated Hypertension Antihypertensives titrated Continue home medications and titrate as needed Hyperlipidemia Continue statin COPD History of lung cancer Continue home medications and titrate as needed GI/DVT prophylaxis Advanced directive full code Discharge Plan: Home Plan to discharge in: 48 Hours - Advance Directives Does patient have a Living Will: No Does patient have a Durable POA for Healthcare: No - Code Status/Comfort Care Code Status: Full Code Time Spent Managing Pts Care (In Minutes): 48
[2024-10-01 22:30] VITALS: O2SAT 100
[2024-10-01] MEDS: ACETAMINOPHEN 325 MG TABLET PO PRN (22:33)
[2024-10-01] MEDS ORDERED: MORPHINE 2 MG/ML SYR IV PRN (23:32)
[2024-10-01 23:38] VITALS: BMI 37.5
[2024-10-02] MEDS: HYDROCODONE/APAP 5/325 MG TAB PO PRN (00:36)
[2024-10-02 05:01] LABS: Absolute Basophils 0.1 K/uL (0-0.5); Absolute Eosinophils 0.1 K/uL (0-0.5); Absolute Lymphocytes (CBC) 1.7 K/uL (0.7-4.9); Absolute Monocytes 0.7 K/uL (0.1-1.3); Eosinophils % 1.1 % (0-4.4); Hematocrit 29.7 % (36.0-45.0); Hemoglobin 10.1 g/dL (12.0-15.0); Lymphocytes % 22.6 % (15.3-44.8); MCH 30.7 pg (27.0-35.0); MCHC 33.9 g/dL (32.0-36.0); MCV 90.7 fL (80-100); MPV 7.2 fL (7.6-11.3); Monocytes % 9.1 % (3.3-12.3); Neutrophils % 66.2 % (41.7-73.7); Nucleated Red Blood Cells % 0.1 % (0-0); Platelets 393 thou/uL (152-406); RBC Red Blood Cell Count 3.27 M/uL (3.86-4.86); Red Cell Distribution Width 16.4 % (12.1-15.2)
[2024-10-02 05:18] LABS: AST/SGOT 16 U/L (15-37); Albumin 2.2 g/dL (3.4-5.0); Albumin/Globulin Ratio 0.6 (1.1-1.8); Alkaline Phosphatase 181 U/L (45-117); Anion Gap 9.2 mEq/L (5.0-15.0); BUN Blood Urea Nitrogen 7 mg/dL (7-18); Bicarbonate 29 mEq/L (21-32); Bilirubin Total 0.4 mg/dL (0.2-1.0); Globulin 3.9 g/dL (2.3-3.5); Glomerular Filtration Rate 102 ml/min (=/>90); Glucose Level 72 mg/dL (74-106); Potassium 3.2 mEq/L (3.5-5.1); Protein, Total 6.1 g/dL (6.4-8.2); Sodium Level 136 mEq/L (136-145)
[2024-10-02 06:05] LABS: ALT/SGPT < 14 U/L (13-56)
[2024-10-02] MEDS: POTASSIUM 25 MEQ EFFERV TAB PO ONE ×2 (07:20→13:50)
[2024-10-02] MEDS: ENOXAPARIN 40 MG/0.4 ML SQ SCH (09:25)
[2024-10-02] MEDS: MORPHINE 4 MG/ML SYR IV PRN (09:26)
[2024-10-02] MEDS: POTASSIUM CL SA 10 MEQ TAB PO ONE (09:26)
[2024-10-02] MEDS: ONDANSETRON 4 MG/2 ML VIAL IV PRN (09:32)
[2024-10-02] MEDS: FUROSEMIDE 40 MG/4 ML VIAL IV ONE (11:37)
--- NOTE | 2024-10-02 11:37 | P.DS ---
Admission Date: 10/01/24 Discharge Date: 10/02/24 Disposition: TRANSFER TO PRISON Discharge Condition: GOOD Reason for Admission: CP Brief History of Present Illness: 74 yrs old Female with past medical history of COPD, DVT left leg, hypertension, history of lung cancer, rib fractures, was brought to ER with chest pain. Pain is located substernal pressure-like feeling radiating to the left side of the chest started today, pressure-like 6 out of 10 in severity. Denies any previous history of CAD. No fever or chills. No sick contacts. Denies any nausea vomiting or diarrhea. Pain is intermittent. Patient was assessed in the ER and is admitted for further management of chest pain rule out ACS - Physical Exam General: Alert, In no apparent distress, Oriented x3, Obese HEENT: Atraumatic, Normocephalic Neck: Supple Respiratory: Clear to auscultation bilaterally, Normal air movement Cardiovascular: No edema, Regular rate/rhythm, Normal S1 S2 Capillary refill: <2 Seconds Gastrointestinal: Soft and benign, W/out hepatosplenomegaly Musculoskeletal: No clubbing, No swelling Integumentary: No rashes Neurological: Normal speech, Normal strength at 5/5 x4 extr, Cranial nerves 3-12 intact Lymphatics: No axilla or inguinal lymphadenopathy Hospital Course: 74 yrs old Female with past medical history of COPD, DVT left leg, hypertension, history of lung cancer, rib fractures, was brought to ER with chest pain. Pain is located substernal pressure-like feeling radiating to the left side of the chest started today, pressure-like 6 out of 10 in severity. Denies any previous history of CAD. No fever or chills. No sick contacts. Denies any nausea vomiting or diarrhea. Pain is intermittent. Patient was assessed in the ER and is admitted for further management of chest pain rule out ACS Assessment Chest pain rule out RI-serial troponins negative, 9.5, 8.2, 8.5, mildly elevated BNP, 215, Lasix given Stage IV metastatic lung cancer follow-up with oncology after discharge History of pulmonary embolus on Xarelto Hyponatremia, sodium tablet 1 daily after discharge Hypokalemia 3.2, replaced while inpatient, Anxiety, discharged home on Valium, for anxiety, muscle spasms, Low back pain, discharged home on as needed analgesics, Hypertension, hyperlipidemia, resume home meds History of COPD, resume home meds after discharge Chest x-ray Bilateral pulmonary nodules unchanged. Small left pleural effusion. Mild left basilar atelectasis-encourage incentive spirometer Continue home medicines as previously prescribed GOAL: Clear understanding of disease process INSTRUCTIONS: Physician Discharge Instructions: -Follow-up with PCP in 1 to 2 weeks -Please call Dr. Daly at [phone] if any questions regarding hospital stay -Please call nursing station at [phone] if any nursing or medication questions -Return to the emergency room if symptoms worsen Diet: ADA, low sodium Activity: Fall precautions Vital Signs/Physical Exam: Temp Pulse Resp BP Pulse Ox 97.5 F 94 H 14 144/65 H 99 10/02/24 08:00 10/02/24 08:00 10/02/24 09:26 10/02/24 08:00 10/02/24 09:26 Laboratory Data at Discharge: WBC 7.60 thou/uL (4.3-10.9) 10/02/24 04:22 Hgb 10.1 g/dL (12.0-15.0) L 10/02/24 04:22 Hct 29.7 % (36.0-45.0) L 10/02/24 04:22 Plt Count 393 thou/uL (152-406) 10/02/24 04:22 PT 18.9 SECONDS (9.4-12.5) H 10/01/24 18:40 INR 1.81 10/01/24 18:40 Sodium 136 mEq/L (136-145) 10/02/24 04:22 Potassium 3.2 mEq/L (3.5-5.1) L 10/02/24 04:22 BUN 7 mg/dL (7-18) 10/02/24 04:22 Creatinine 0.46 mg/dL (0.55-1.02) L 10/02/24 04:22 Glucose 72 mg/dL (74-106) L 10/02/24 04:22 Magnesium 1.9 mg/dL (1.6-2.4) 10/01/24 18:40 Total Bilirubin 0.4 mg/dL (0.2-1.0) 10/02/24 04:22 AST 16 U/L (15-37) 10/02/24 04:22 ALT < 14 U/L (13-56) 10/02/24 04:22 Alkaline Phosphatase 181 U/L (45-117) H 10/02/24 04:22 Lipase 10 U/L (13-75) L 10/01/24 18:40 Home Medications: Albuterol Inhaler [Ventolin Inhaler*] 2 puff IH Q6H PRN 07/11/23 Umeclidinium Brm/Vilanterol Tr [Anoro Ellipta 62.5-25 Mcg INH] 1 each IH DAILY 07/11/23 Fluticasone [Flonase 50MCG Nasal [place]*] 2 sprays NS DAILY PRN 07/07/24 Gabapentin 300 mg PO BEDTIME 07/07/24 Pantoprazole [Protonix Tab*] 20 mg PO AC 07/07/24 Hydrocodone 10/APAP 325 [[place] 10/325*] 1 tab PO Q6HP PRN 09/09/24 methocarbamoL [Methocarbamol] 1 tab PO Q6HP PRN 09/09/24 Docusate/Senna [Senokot-S*] 1 tab PO BID tab 09/17/24 Potassium Bicarbonate/Cit AC [Klor-Con-Ef 25 Meq Tab Eff] 25 meq PO DAILY 30 Days #30 tab 09/17/24 Rivaroxaban [Xarelto] 20 mg PO DAILY 30 Days #30 tab 10/02/24 Sodium Chloride Tab [NaCl Tabs] 1 gm PO DAILY 30 Days #30 tab 10/02/24 diazePAM [Valium*] 2 mg PO TID PRN #0 tab 10/02/24 diazePAM [Valium] 2 mg PO TID PRN #30 tab 10/02/24 predniSONE [Deltasone] 20 mg PO DAILY #5 tab 10/02/24 New Medications: predniSONE [Deltasone] 20 mg PO DAILY #5 tab Sodium Chloride Tab [NaCl Tabs] 1 gm PO DAILY 30 Days #30 tab diazePAM [Valium] 2 mg PO TID PRN #30 tab PRN Reason: Anxiety Rivaroxaban [Xarelto] 20 mg PO DAILY 30 Days #30 tab Physician Discharge Instructions: 74 yrs old Female with past medical history of COPD, DVT left leg, hypertension, history of lung cancer, rib fractures, was brought to ER with chest pain. Pain is located substernal pressure-like feeling radiating to the left side of the chest started today, pressure-like 6 out of 10 in severity. Denies any previous history of CAD. No fever or chills. No sick contacts. Denies any nausea vomiting or diarrhea. Pain is intermittent. Patient was assessed in the ER and is admitted for further management of chest pain rule out ACS. Patient's high-sensitivity troponin was negative, and the levels have actually declined during hospitalization. Patient with no indication for acute coronary issues and at this time can be discharged to outpatient follow-up. Most likely musculoskeletal. Will continue with pain control. atient Assessment Chest pain rule out RI-serial troponins negative, 9.5, 8.2, 8.5, mildly elevated BNP, 215, Lasix 40 IV x 1, History of PE on Xarelto secondary to bedrest, deconditioning, stage IV metastatic lung cancer Stage IV metastatic lung cancer, follow-up with Dr. Cullen after discharge Hyponatremia, 3.2, replaced while inpatient, will discharge on 1 tab daily Anxiety, discharged home on Valium, for anxiety, muscle spasms, Low back pain, discharged home on as needed analgesics, Hypertension, hyperlipidemia, resume home meds History of COPD, resume home meds after discharge Chest x-ray Bilateral pulmonary nodules unchanged. Small left pleural effusion. Mild left basilar atelectasis-encourage incentive spirometery Continue home medicines as previously prescribed GOAL: Clear understanding of disease process INSTRUCTIONS: Physician Discharge Instructions: -Follow-up with PCP in 1 to 2 weeks -Please call Dr. Daly at [phone] if any questions regarding hospital stay -Please call nursing station at [phone] if any nursing or medication questions -Return to the emergency room if symptoms worsen Diet: ADA, low sodium Activity: Fall precautions Diet: Regular Activity: Fall precautions Followup: Mikey Cullen MD [ACTIVE - CAN ADMIT] - Glenn Garcia MD [Primary Care Provider] - Time spent managing pt's care (in minutes): 45
[2024-10-02] MEDS: dexAMETHasone 4 MG/ML VIAL IV ONE (13:12)
[2024-10-02] MEDS: DIAZEPAM 2 MG TABLET PO PRN (13:20)
[2024-10-02] MEDS: HYDROCODONE/APAP 5/325 MG TAB PO ONE (14:33)
[2024-10-02] MEDS: DIAZEPAM 2 MG TABLET PO ONE (14:35)
[2024-10-02 16:31] VITALS: BP 134/78; TEMP 97.6
== END 2024-10-02 17:46 ==
LOC: ER 18:17 → ERHOLD 20:08 → 2ND 21:16
PROVIDERS: ADMIT Family Medicine; ATTEND Hospitalist
DX: J90 Pleural effusion, not elsewhere classified (principal); J98.11 Atelectasis; J44.9 Chronic obstructive pulmonary disease, unspecified; I82.4Z2 Acute embolism and thrombosis of unspecified deep veins of left distal lower extremity; I10 Essential (primary) hypertension; E78.5 Hyperlipidemia, unspecified; E87.1 Hypo-osmolality and hyponatremia; E87.6 Hypokalemia; M54.50 Low back pain, unspecified; F41.9 Anxiety disorder, unspecified; R91.8 Other nonspecific abnormal finding of lung field; Z85.118 Personal history of other malignant neoplasm of bronchus and lung; Z88.8 Allergy status to other drugs, medicaments and biological substances; Z85.830 Personal history of malignant neoplasm of bone; Z79.01 Long term (current) use of anticoagulants
CPT/HCPCS: 85025 ×2; 80048; 36415 ×2; 83735; 85610; 85379; 80076; 84484 ×3; 83690; 80053; 83880; 71045; 96374; 99285; J1100; J1940; J1650; J2405 ×3; 93005; G0378

== ENCOUNTER 2024-10-18 11:56 | Inpatient (IN) | payer OTHER ==
[2024-10-18 12:40] LABS: Absolute Basophils 0.1 K/uL (0-0.5); Absolute Lymphocytes (CBC) 1.2 K/uL (0.7-4.9); Absolute Monocytes 0.5 K/uL (0.1-1.3); Absolute Neutrophil 10.1 K/uL (1.8-8.0); Basophils % 0.4 % (0-1.3); Eosinophils % 0.2 % (0-4.4); Hematocrit 32.7 % (36.0-45.0); Hemoglobin 10.5 g/dL (12.0-15.0); Lymphocytes % 10.3 % (15.3-44.8); MCH 29.1 pg (27.0-35.0); MCHC 32.2 g/dL (32.0-36.0); MCV 90.4 fL (80-100); MPV 6.5 fL (7.6-11.3); Monocytes % 4.1 % (3.3-12.3); Nucleated Red Blood Cells % 0.1 % (0-0); Platelets 354 thou/uL (152-406); RBC Red Blood Cell Count 3.62 M/uL (3.86-4.86); Red Cell Distribution Width 17.9 % (12.1-15.2)
[2024-10-18 12:45] LABS: PT Prothrombin Time 17.4 SECONDS (10.0-13.0); Protime INR 1.56
[2024-10-18 13:00] LABS: ALT/SGPT 15 U/L (13-56); AST/SGOT 19 U/L (15-37); Albumin 2.4 g/dL (3.4-5.0); Albumin/Globulin Ratio 0.6 (1.1-1.8); Alkaline Phosphatase 157 U/L (45-117); Anion Gap 9.7 mEq/L (5.0-15.0); BUN Blood Urea Nitrogen 9 mg/dL (7-18); Bicarbonate 28 mEq/L (21-32); Bilirubin Total 0.4 mg/dL (0.2-1.0); Glomerular Filtration Rate 101 ml/min (=/>90); Glucose Level 85 mg/dL (74-106); Magnesium 2.1 mg/dL (1.6-2.4); NT PRO-BNP 151 pg/mL (<125); Potassium 3.7 mEq/L (3.5-5.1); Protein, Total 6.4 g/dL (6.4-8.2); Sodium Level 133 mEq/L (136-145); Troponin High Sensitivity 3.8 pg/mL (<58.9)
[2024-10-18 13:01] LABS: Bilirubin Direct < 0.2 mg/dL (0-0.2); Bilirubin Indirect, Calculated 0.2 mg/dL (0.2-0.8)
--- NOTE | 2024-10-18 13:21 | RAD REPORT ---
EXAM: Chest Single View HISTORY: CHEST PAIN COMPARISON: 10/01/2024 FINDINGS: LUNGS/PLEURA: Diffuse prominence of the pulmonary interstitium. Small left pleural effusion present. Hazy opacities in the left lung base which may reflect atelectasis. Thickened right minor fissure. MEDIASTINUM: The mediastinal silhouette is within normal limits. CARDIAC: Stable size and configuration. UPPER ABDOMEN: No significant abnormality. BONES: No acute abnormality. LINES/TUBES/OTHER: N/A IMPRESSION: Increased interstitial thickening bilaterally and left pleural effusion possibly reflecting a combina tion of increasing mild interstitial edema, small left pleural effusion, and possibly other underlying atelectasis or pneumonia.
--- NOTE | 2024-10-18 14:41 | RAD REPORT ---
EXAMINATION: CTA CHEST PE CLINICAL INDICATION: Female, 74 years old. CHEST PAIN TECHNIQUE: This examination was performed according to an angiographic protocol with 3D post-processi ng. This involves 3D reconstructions, MIPs, volume rendered images and/or shaded surface rendering. One or more of the following dose reduction techniques were used: Automated exposure control, adjustm ent of the mA and/or kV according to patient size, and/or iterative reconstruction. Unless otherwise specified, incidental findings do not require dedicated imaging follow-up. [id number]. COMPARISON: 09/08/2024, same-day chest x-ray FINDINGS: LOWER NECK: Visualized thyroid gland and soft tissues are normal. LUNGS AND AIRWAYS: Emphysema. Increased atelectasis at the left lung base due to the left pleural eff usion.Left upper lobe pulmonary nodule remains suspicious and is unchanged. PLEURA: Small to moderate left pleural effusion. This is increased in size. MEDIASTINUM AND LYMPH NODES: Hilar lymphadenopathy. THORACIC AORTA: No thoracic aortic aneurysm. PULMONARY ARTERIES: Enlarged main pulmonary arteries could indicate pulmonary artery hypertension. Th ere is significant right middle lobe pulmonary embolus is no longer identified. No pulmonary embolus is seen on this exam. HEART: Normal heart size. No coronary calcifications.No significant pericardial there is some fissura l thickening on the right which may be from subsegmental atelectasis or possibly some mild interstitial edema. Effusion. OSSEOUS STRUCTURES AND CHEST WALL: Osseous metastatic disease again noted. Remote left-sided rib frac tures. UPPER ABDOMEN: No acute abnormalities.Hepatic steatosis IMPRESSION: Negative for pulmonary embolism. The previously seen right middle lobe embolus has resolved. Enlarging left pleural effusion with either underlying atelectasis or pneumonia. There is some fissur al thickening on the right which may be from subsegmental atelectasis or possibly some mild interstitial edema. Metastatic disease including suspicious left upper lobe nodule and osseous metastatic disease is axel sly similar.
[2024-10-18] MEDS ORDERED: MORPHINE 4 MG/ML SYR ONE (15:40)
--- NOTE | 2024-10-18 16:00 | ER ---
Nurse's Notes [facility] Name: Kaylah Roper Age: 74 yrs Sex: Female : 1950 Arrival Date: 10/18/2024 Time: 11:56 Bed 16 Private MD: Diagnosis: Pneumonia, unspecified organism;Chest pain, unspecified;Lung Cancer Presentation: 10/18 11:57 Chief complaint: EMS states: CHEST PAIN FROM [place], CHEST PAIN X 1 HOUR. 1 db NITRO 0.4 MG AND 324 MG ASPIRIN GIVEN. HX OF COPD AND LUNG CANCER. Coronavirus screen: Client denies travel out of the [place] in the last 14 days. At this time, the client does not indicate any symptoms associated with coronavirus-19. Ebola Screen: Patient negative for fever greater than or equal to 101.5 degrees Fahrenheit, and additional compatible Ebola Virus Disease symptoms Patient denies exposure to infectious person. Patient denies travel to an Ebola-affected area in the 21 days before illness onset. No symptoms or risks identified at this time. Initial Sepsis Screen: Does the patient meet any 2 criteria? No. Patient's initial sepsis screen is negative. Does the patient have a suspected source of infection? No. Patient's initial sepsis screen is negative. Risk Assessment: Do you want to hurt yourself or someone else? Patient reports no desire to harm self or others. Onset of symptoms was October 18, 2024. Care prior to arrival: Medication(s) given: ASA, 81 mg, x 4, Nitroglycerin, 0.4 mg SL x 1, IV initiated. 20 GA, in the right antecubital area, Glucose check: 95. 11:57 Method Of Arrival: EMS: [facility] db 11:57 Acuity: JASPER 2 db Triage Assessment: 11:57 General: Appears in no apparent distress. comfortable, Behavior is calm, cooperative. db Pain: Complains of pain in chest. Neuro: Level of Consciousness is awake, alert, obeys commands, Oriented to person, place, time, situation. Cardiovascular: Reports chest pain. Respiratory: Airway is patent Respiratory effort is even, unlabored, Respiratory pattern is regular, symmetrical. Historical: - Allergies: 11:57 formoterol fumarate; db 11:57 budesonide; db 11:57 glycopyrrolate; db - PMHx: 11:57 bone cancer (rib fractures); COPD; DVTleft leg; Hypertensive disorder; Lung Cancer; rib db fractures; - PSHx: 11:57 hysterectomy; Ligation of fallopian tube; db - Immunization history:: Adult Immunizations unknown. - Infectious Disease History:: Denies. - Social history:: Smoking status: Patient denies any tobacco usage or history of. Screenin:12 [facility] ED Fall Risk Assessment (Adult) History of falling in the last 3 months, db including since admission No falls in past 3 months (0 pts) Confusion or Disorientation No (0 pts) Intoxicated or Sedated No (0 pts) Impaired Gait No (0 pts) Mobility Assist Device Used No (0 pt) Altered Elimination No (0 pt) Score/Fall Risk Level 0 - 2 = Low Risk Oriented to surroundings, Maintained a safe environment. Abuse screen: Denies threats or abuse. Denies injuries from another. Nutritional screening: No deficits noted. Tuberculosis screening: No symptoms or risk factors identified. Assessment: 12:12 Reassessment: SEE TRIAGE FOR INITIAL ASSESSMENT. db 13:00 Reassessment: Patient appears in no apparent distress at this time. Patient and/or db family updated on plan of care and expected duration. Pain level reassessed. Patient is alert, oriented x 3, equal unlabored respirations, skin warm/dry/pink. General: Appears in no apparent distress. comfortable, Behavior is calm, cooperative. Pain: Complains of pain in chest Pain does not radiate. Pain began gradually. Neuro: Level of Consciousness is awake, alert, obeys commands, Oriented to person, place, time, situation. Cardiovascular: Reports chest pain, shortness of breath. Respiratory: Airway is patent Respiratory effort is even, unlabored, Respiratory pattern is regular, symmetrical, Breath sounds are coarse. 17:23 Reassessment: Patient appears in no apparent distress at this time. Patient and/or db family updated on plan of care and expected duration. Pain level reassessed. Patient is alert, oriented x 3, equal unlabored respirations, skin warm/dry/pink. Patient denies pain at this time. Patient states feeling better. Patient states symptoms have improved. 18:12 Reassessment: Patient appears in no apparent distress at this time. Patient and/or db family updated on plan of care and expected duration. Pain level reassessed. Patient is alert, oriented x 3, equal unlabored respirations, skin warm/dry/pink. 18:20 Reassessment: PATIENT BRIEF CHANGED. NOTED URINE IN BRIEF. NO WOUNDS NOTED. db 18:37 Reassessment: NOTIFY FLOOR PT IS ON THE WAY. db Vital Signs: 11:57 BP 139 / 91; Pulse 96; Resp 20; Temp 97.9; Pulse Ox 96% on 3 lpm NC; Weight 99.79 kg; db Height 5 ft. 5 in. ; 12:30 BP 146 / 83; Pulse 95; Resp 18; Pulse Ox 100% on 3 lpm NC; db 13:00 BP 151 / 85; Pulse 91; Pulse Ox 100% ; db 15:00 BP 153 / 90; Pulse 95; Resp 17; Pulse Ox 100% on 3 lpm NC; db 16:00 BP 142 / 85; Pulse 102; Resp 26; Pulse Ox 100% on 3 lpm NC; db 17:00 BP 146 / 87; Pulse 104; Resp 18; Pulse Ox 100% on 3 lpm NC; db 18:00 BP 137 / 86; Pulse 99; Resp 18; Pulse Ox 100% on R/A; db 11:57 Body Mass Index 36.61 (99.79 kg, 165.1 cm) db ED Course: 11:57 Arm band placed on Patient placed in an exam room. db 12:06 Patient arrived in ED. db 12:10 Triage completed. db 12:12 Patient has correct armband on for positive identification. Bed in low position. Call db light in reach. Side rails up X 1. Client placed on continuous cardiac and pulse oximetry monitoring. NIBP monitoring applied. environmental monitoring specialist on. Pulse ox on. NIBP on. Warm blanket given. Pillow given. 12:14 Frederic Daly DO is Attending Physician. ms3 12:28 Basic Metabolic Panel Sent. bc6 12:28 CBC with Diff Sent. bc6 12:28 LFT's Sent. bc6 12:28 Magnesium Sent. bc6 12:29 NT PRO-BNP Sent. bc6 12:29 PT-INR Sent. bc6 12:29 Troponin HS Sent. bc6 12:29 Initial lab(s) drawn, by me, sent to lab. EKG done, by ED staff, reviewed by Frederic Daly DO. Maintain EMS IV. Dressing intact. Good blood return noted. Site clean \T\ dry. Gauge \T\ site: 20\T\ RFA. Flushed with 10 mL NS. 12:44 Patience Srinivasan, RN is Primary Nurse. db 13:15 XRAY Chest (1 view) In Process Unspecified. EDMS 13:[address] via stretcher. db 14:00 CT Chest For PE Angio In Process Unspecified. EDMS 15:57 Reno Pitt is Hospitalizing Provider. ms3 18:43 Provided Education on: ADMISSION. db 18:43 No provider procedures requiring assistance completed. Patient admitted, IV remains in db place. Oxygen administration via nasal cannula \T\ 3L/min. Administered Medications: 12:36 Not Given (GIVEN BY EMS): aspirinchewable tablet 324 mg PO once; 81 mg tablets x 4 db 15:42 Drug: morphine IVP or IV 4 mg IVP once over 4 mins Route: IVP; Infused Over: 4 mins; db Site: right antecubital; 16:55 Follow up: Response: No adverse reaction; Pain is decreased db 16:05 Drug: Rocephin - Rocephin (cefTRIAXone) IVPB 1 grams IVPB once over 30 mins; (mix in 50 db mL NS) Route: IVPB; Infused Over: 30 mins; Site: right antecubital; 16:45 Follow up: Response: No adverse reaction; IV Status: Completed infusion; IV Intake: 50mldb 16:50 Drug: AZITHromycin IVPB 500 mg IVPB once over 1 hrs; (mix in 250 mL NS) Route: IVPB; db Infused Over: 1 hrs; Site: right antecubital; 18:10 Follow up: Response: No adverse reaction; IV Status: Completed infusion; IV Intake: db 250ml Medication: 12:45 VIS not applicable for this client. db Intake: 16:45 IV: 50ml; Total: 50ml. db 18:10 IV: 250ml; Total: 300ml. db Outcome: 15:59 Decision to Hospitalize by Provider. ms3 18:43 Admitted to Med/surg accompanied by tech, room 406, Report called to FAXED TO FLOOR db AND CALLED AND NOTIFIED PT IS ON WAY 18:43 Condition: stable 18:43 Instructed on the need for admit, 18:45 Patient left the ED. db Signatures: Dispatcher [facility] EDFrederic Hidalgo DO DO ms3 Patience Srinivasan, RN RN db Anna Kim bc6 Corrections: (The following items were deleted from the chart) 12:45 11:57 BP 139 / 91; Pulse 96bpm; Resp 20bpm; Pulse Ox 96%; Temp 97.9F; 99.79 kg; Height db 5 ft. 5 in.; BMI: 36.6; db
--- NOTE | 2024-10-18 16:00 | EDPHYS ---
Physician Documentation [facility] [place] Name: Kaylah Roper Age: 74 yrs Sex: Female : 1950 Arrival Date: 10/18/2024 Time: 11:56 Bed 16 Private MD: ED Physician Frederic Daly HPI: 10/18 12:32 This 74 yrs old Black Female presents to ER via EMS with complaints of Chest Pain. ms3 12:32 74-year-old female with past medical history of lung cancer, COPD, left leg DVT, ms3 hypertension presents to the emergency department for chest pain that began at 11 AM and was rated a 5-6 at that time. Patient states her pain has currently resolved. Patient endorses cough. Patient denies fevers, nausea, vomiting. Historical: - Allergies: 11:57 formoterol fumarate; db 11:57 budesonide; db 11:57 glycopyrrolate; db - PMHx: 11:57 bone cancer (rib fractures); COPD; DVTleft leg; Hypertensive disorder; Lung Cancer; rib db fractures; - PSHx: 11:57 hysterectomy; Ligation of fallopian tube; db - Immunization history:: Adult Immunizations unknown. - Infectious Disease History:: Denies. - Social history:: Smoking status: Patient denies any tobacco usage or history of. ROS: 12:32 Constitutional: Negative for fever, and chills. ms3 12:32 Abdomen/GI: Negative for abdominal pain, nausea, vomiting, diarrhea, and constipation, MS/Extremity: Negative for injury and deformity, Skin: Negative for injury, rash, and discoloration, 12:32 Cardiovascular: Positive for chest pain, 12:32 Respiratory: Positive for cough, Exam: 12:32 ECG was reviewed by the Attending Physician. ms3 12:32 Constitutional: This is a well developed, well nourished patient who is awake, alert, ms3 and in no acute distress. Cardiovascular: Regular rate and rhythm with a normal S1 and S2. No gallops, murmurs, or rubs. Normal PMI, no JVD. No pulse deficits. Respiratory: Lungs have equal breath sounds bilaterally, clear to auscultation and percussion. No rales, rhonchi or wheezes noted. No increased work of breathing, no retractions or nasal flaring. Abdomen/GI: Soft, non-tender, with normal bowel sounds. No distension or tympany. No guarding or rebound. No evidence of tenderness throughout. Skin: Warm, dry with normal turgor. Normal color with no rashes, no lesions, and no evidence of cellulitis. Vital Signs: 11:57 BP 139 / 91; Pulse 96; Resp 20; Temp 97.9; Pulse Ox 96% on 3 lpm NC; Weight 99.79 kg; db Height 5 ft. 5 in. ; 12:30 BP 146 / 83; Pulse 95; Resp 18; Pulse Ox 100% on 3 lpm NC; db 13:00 BP 151 / 85; Pulse 91; Pulse Ox 100% ; db 15:00 BP 153 / 90; Pulse 95; Resp 17; Pulse Ox 100% on 3 lpm NC; db 16:00 BP 142 / 85; Pulse 102; Resp 26; Pulse Ox 100% on 3 lpm NC; db 17:00 BP 146 / 87; Pulse 104; Resp 18; Pulse Ox 100% on 3 lpm NC; db 18:00 BP 137 / 86; Pulse 99; Resp 18; Pulse Ox 100% on R/A; db 11:57 Body Mass Index 36.61 (99.79 kg, 165.1 cm) db MDM: 12:20 Medical Screening Exam initiated ms3 12:32 Differential diagnosis: abnormal EKG, acute myocardial infarction, congestive heart ms3 failure pneumonia, pulmonary embolus. 10/18 12:15 Order name: Basic Metabolic Panel; Complete Time: 13: ms3 10/18 12:15 Order name: CBC with Diff; Complete Time: 13:3 10/18 12:15 Order name: LFT's; Complete Time: 13:3 10/18 12:15 Order name: Magnesium; Complete Time: 13: ms3 10/18 12:15 Order name: NT PRO-BNP; Complete Time: 13:08 ms3 10/18 12:15 Order name: PT-INR; Complete Time: 13: ms3 10/18 12:15 Order name: Troponin HS; Complete Time: 13: ms3 10/18 17:30 Order name: Urinalysis w/ reflexes [facility] 10/18 17:30 Order name: Basic Metabolic Panel [facility] 10/18 17:30 Order name: Basic Metabolic Panel [facility] 10/18 17:30 Order name: CBC with Automated Diff [facility] 10/18 17:30 Order name: CBC with Automated Diff [facility] 10/18 17:30 Order name: Magnesium [facility] 10/18 17:30 Order name: Magnesium [facility] 10/18 17:30 Order name: Phosphorus [facility] 10/18 17:30 Order name: Phosphorus [facility] 10/18 17:30 Order name: Troponin High Sensitivity [facility] 10/18 17:30 Order name: Troponin High Sensitivity [facility] 10/18 17:30 Order name: Troponin High Sensitivity [facility] 10/18 12:15 Order name: XRAY Chest (1 view); Complete Time: 14:45 ms3 10/18 12:22 Order name: CT Chest For PE Angio; Complete Time: 14:45 ms3 10/18 17:20 Order name: CONS Physician Consult [facility] 10/18 17:30 Order name: Patient Safety Orders [facility] 10/18 17:30 Order name: CONS Physician Consult [facility] 10/18 17:30 Order name: Physical Therapy Consult [facility] 10/18 12:15 Order name: Cardiac monitoring; Complete Time: 12:28 ms3 10/18 12:15 Order name: EKG - Nurse/Tech; Complete Time: 12:28 ms3 10/18 12:15 Order name: IV Saline Lock; Complete Time: 12:28 ms3 10/18 12:15 Order name: Labs collected and sent; Complete Time: 12:28 ms3 10/18 12:15 Order name: O2 Per Protocol; Complete Time: 12:28 ms3 10/18 12:15 Order name: O2 Sat Monitoring; Complete Time: 12:28 ms3 EC:32 Rate is 97 beats/min. Rhythm is regular. QRS [place] is Normal. LA interval is normal. QRS ms3 interval is normal. Clinical impression: Normal ECG. Interpreted by me. Reviewed by me. Administered Medications: 12:36 Not Given (GIVEN BY EMS): aspirinchewable tablet 324 mg PO once; 81 mg tablets x 4 db 15:42 Drug: morphine IVP or IV 4 mg IVP once over 4 mins Route: IVP; Infused Over: 4 mins; db Site: right antecubital; 16:55 Follow up: Response: No adverse reaction; Pain is decreased db 16:05 Drug: Rocephin - Rocephin (cefTRIAXone) IVPB 1 grams IVPB once over 30 mins; (mix in 50 db mL NS) Route: IVPB; Infused Over: 30 mins; Site: right antecubital; 16:45 Follow up: Response: No adverse reaction; IV Status: Completed infusion; IV Intake: 50mldb 16:50 Drug: AZITHromycin IVPB 500 mg IVPB once over 1 hrs; (mix in 250 mL NS) Route: IVPB; db Infused Over: 1 hrs; Site: right antecubital; 18:10 Follow up: Response: No adverse reaction; IV Status: Completed infusion; IV Intake: db 250ml Disposition Summary: 10/18/24 15:59 Hospitalization Ordered Notes: Hospitalization Status: Observation ms3 Provider: [place]o Pitt ms3 Location: Telemetry/MedSurg (observation) ms3 Condition: Stable ms3 Problem: new ms3 Symptoms: are unchanged ms3 Bed/Room Type: Standard ms3 Room Assignment: 406(10/18/24 17:29) bd Diagnosis - Pneumonia, unspecified organism ms3 - Chest pain, unspecified ms3 - Lung Cancer ms3 Forms: - Medication Reconciliation Form ms3 - SBAR form ms3 - Leadership Thank You Letter ms3 Signatures: Dispatcher [employer] EDMS Kaylah Stacy Marcus, DO DO ms3 Patience Srinivasan RN RN db Corrections: (The following items were deleted from the chart) 12:15 12:15 BASIC METABOLIC PANEL+C.LAB.BRZ ordered. EDMS EDMS 12:15 12:15 CBC+H.LAB.BRZ ordered. EDMS EDMS 12:15 12:15 HEPATIC FUNCTION+C.LAB.BRZ ordered. EDMS EDMS 12:15 12:15 MAGNESIUM+C.LAB.BRZ ordered. EDMS EDMS 12:15 12:15 PROBNP+C.LAB.BRZ ordered. EDMS EDMS 12:15 12:15 PROTIME (+INR)+COAG.LAB.BRZ ordered. EDMS EDMS 12:15 12:15 Troponin High Sensitivity+C.LAB.BRZ ordered. EDMS EDMS 12:15 12:15 Chest Single View+RAD.RAD.BRZ ordered. EDMS EDMS 17:29 15:59 ms3 bd
[2024-10-18] MEDS ORDERED: CEFTRIAXONE 1000 MG/VIAL ONE (16:03)
[2024-10-18] MEDS ORDERED: NA CHLORIDE 0.9% 250 ML ONE (16:03)
[2024-10-18] MEDS ORDERED: NA CHLORIDE 0.9% 50 ML ONE (16:03)
[2024-10-18] MEDS ORDERED: AZITHROMYCIN 500 MG INJ IVPB ONE (16:03)
[2024-10-18] MEDS ORDERED: ACETAMINOPHEN 500 MG TAB PO PRN (17:19)
[2024-10-18] MEDS ORDERED: FLUTICASONE 50MCG NASAL SPRAY NAS PRN (17:28)
[2024-10-18] MEDS: RIVAROXABAN 20 MG TABLET PO SCH (17:36)
--- NOTE | 2024-10-18 17:37 | P.HP ---
Certification for Inpatient Patient admitted to: Observation With expected LOS: <2 Midnights Practitioner: I am a practitioner with admitting privileges, knowledge of patient current condition, hospital course, and medical plan of care. Services: Services provided to patient in accordance with Admission requirements found in Title 42 Section 412.3 of the Code of Federal Regulations Patient History Date of Service: 10/18/24 Reason for admission: Chest pain and back pain History of Present Illness: 74-year-old man with history of lung cancer, pleural effusion, history of bone metastasis at multiple locations including the spine, ribs, history of left pathologic hip fracture secondary to bone metastasis was transferred to [facility] due to complaint of chest pain and generalized weakness. Patient reported chest pain worse with breathing, denies any palpitation. Patient denies any fever or chills. Patient stated she received only 1 dose of chemotherapy in August 2024 since she was diagnosed with cancer in June 2024. She has had trouble with mobility and has been been unable to go for further treatment. She was plan for radiation treatment however she states that she was too weak and was in too much pain they could not get her onto the radiation table. Patient was recently hospitalized for chest pain and discharged to [facility] [place] for rehab. She has a history of pulm embolism and left lower extremity DVT which has been treated with Xarelto. CTA thorax reported no PE as identified in previous scans, however it noted worsening left pleural effusion with underlying atelectasis versus pneumonia, metastatic pulmonary nodules and bony metastasis. Patient has a history of chronic respiratory failure and was on her baseline 3 L by nasal cannula in the ER. Patient reports her inability to transfer or stand is mostly due to uncontrolled pain. Patient is hospitalized for further management. Allergies budesonide [From [employer]] Allergy (Verified 09/09/24 06:08) unknown formoterol [From [employer]] Allergy (Verified 09/09/24 06:08) unknown glycopyrrolate [From [employer]] Allergy (Verified 09/09/24 06:08) unknown Home Medications: Albuterol Inhaler [Ventolin Inhaler*] 2 puff IH Q6H PRN 07/11/23 Umeclidinium Brm/Vilanterol Tr [Anoro Ellipta 62.5-25 Mcg INH] 1 each IH DAILY 07/11/23 Fluticasone [Flonase 50MCG Nasal [place]*] 2 sprays NS DAILY PRN 07/07/24 Gabapentin 300 mg PO BEDTIME 07/07/24 Pantoprazole [Protonix Tab*] 20 mg PO AC 07/07/24 Hydrocodone 10/APAP 325 [[place] 10/325*] 1 tab PO Q6HP PRN 09/09/24 methocarbamoL [Methocarbamol] 1 tab PO Q6HP PRN 09/09/24 Docusate/Senna [Senokot-S*] 1 tab PO BID tab 09/17/24 Potassium Bicarbonate/Cit AC [Klor-Con-Ef 25 Meq Tab Eff] 25 meq PO DAILY 30 Days #30 tab 09/17/24 Rivaroxaban [Xarelto] 20 mg PO DAILY 30 Days #30 tab 10/02/24 Sodium Chloride Tab [NaCl Tabs] 1 gm PO DAILY 30 Days #30 tab 10/02/24 diazePAM [Valium*] 2 mg PO TID PRN #0 tab 10/02/24 diazePAM [Valium] 2 mg PO TID PRN #30 tab 10/02/24 predniSONE [Deltasone] 20 mg PO DAILY #5 tab 10/02/24 - Past Medical/Surgical History Diabetic: No -: lung cancer -: COPD -: L4 metastasis -: L hip sx hysterectomy - Family History Father -: Cancer (Lymphoma) Brother -: Cancer - Social History Alcohol use: No CD- Drugs: No Caffeine use: No Review of Systems Other: Patient denied any diarrhea, denied any nausea vomiting. No abdominal pain She denied any headache, no visual disturbance or dizziness She denied any orthopnea. Except as documented, all other systems reviewed and negative. Physical Examination - Physical Exam General: Alert, In no apparent distress, Oriented x3, Obese HEENT: Atraumatic, Mucous membr. moist/pink, EOMI, Sclerae nonicteric Neck: Supple, JVD not distended Respiratory: Clear to auscultation bilaterally, Diminished (Bilateral) Cardiovascular: No edema, Regular rate/rhythm, Normal S1 S2, No murmurs Gastrointestinal: Normal bowel sounds, Soft and benign, Non-distended, No tenderness Musculoskeletal: No swelling, No tenderness Integumentary: No rashes, No erythema, No cyanosis Neurological: Normal speech, Other (Globally weak, no focal motor deficit. No facial deviation.) Lymphatics: No axilla or inguinal lymphadenopathy - Studies Laboratory Data (last 24 hrs) 10/18/24 10/18/24 10/18/24 12:25 12:25 12:25 WBC 11.90 H Hgb 10.5 L Hct 32.7 L Plt Count 354 PT 17.4 H INR 1.56 Sodium 133 L Potassium 3.7 BUN 9 Creatinine 0.47 L Glucose 85 Magnesium 2.1 Total Bilirubin 0.4 AST 19 ALT 15 Alkaline Phosphatase 157 H Assessment and Plan - Problems (Diagnosis) (1) Cancer related pain Current Visit: Yes Status: Acute (2) Pleural effusion, left Current Visit: Yes Status: Acute (3) History of DVT (deep vein thrombosis) Current Visit: Yes Status: Acute (4) History of pulmonary embolism Current Visit: Yes Status: Acute (5) Lung cancer metastatic to bone Current Visit: No Status: Acute (6) Chronic anemia Current Visit: Yes Status: Acute (7) Syndrome of inappropriate ADH (SIADH) secretion Current Visit: No Status: Acute (8) Hyponatremia Current Visit: No Status: Acute - Plan Lung cancer with bone metastasis Cancer related pain Patient currently not undergoing treatment due to poor functional status Associated uncontrolled cancer-related limiting mobility and functional status. Patient will be placed under observation. Pain control Fentanyl patch, and [place] as needed for breakthrough pain and incidental pain. PT consult I spoke to radiation oncology Dr. Cordoba who concurred patient's uncontrolled pain limits her mobility and transportation for cancer treatment including radiation and recommended optimization of her pain management. Goal is to control patient's pain to see if her functional status will improve enough to start chemo and radiation. PT consult. Lung mass Atelectasis Pleural effusion Pneumonia not ruled out. Will treat with empiric Levaquin and vancomycin for healthcare associated pneumonia Chest physiotherapy Pulmonary consult to evaluate. US guided therapeutic thoracentesis. Chest pain Likely related to the lung cancer with bony metastatic(ribs) Pain management as above Trend troponin. Hyponatremia Syndrome of inappropriate ADH secretion Monitor BMP Free water restriction to 1500 mL/day Continue home dose sodium tablets. History of DVT History of pulm embolism CTA thorax today is negative for pulm embolism. Hold Xarelto and cover with full dose Lovenox for US guided thoracentesis. DVT prophylaxis: Xarelto Advanced directive: Full code. - Advance Directives Does patient have a Living Will: No Does patient have a Durable POA for Healthcare: No
[2024-10-18] MEDS: ENOXAPARIN 100 MG/ML SYR SQ ONE (18:49)
[2024-10-18] MEDS: NA CHLORIDE 0.9% 1,000 ML IV SCH (18:49)
[2024-10-18] MEDS: Levofloxacin 750mg IV 750 MG/150 ML BAG IV SCH (18:50)
[2024-10-18] MEDS: FENTANYL 25 MCG/PATCH TD SCH (18:50)
[2024-10-18] MEDS: HYDROCODONE/APAP 10/325 TAB PO PRN (20:20)
[2024-10-18] MEDS: GABAPENTIN 300 MG CAP PO SCH (20:20)
[2024-10-18] MEDS: VANCOMYCIN 2.5 GM in NA CHLORIDE 0.9% 500 ML IVPB ONE (20:21)
[2024-10-18 20:25] VITALS: BMI 36.6
[2024-10-18] MEDS: IPRATROPIUM BROM 0.5MG/2.5ML NEB SCH (20:42)
[2024-10-18] MEDS: ALBUTEROL 2.5 MG/3 ML NEB SOL NEB SCH (20:43)
[2024-10-18] MEDS ORDERED: OXYCODONE *CR* 20 MG TAB PO SCH (21:00)
[2024-10-18] MEDS: methocarbamoL 750 MG TAB PO PRN (23:58)
[2024-10-19 00:44] LABS: Specific Gravity > 1.030 (1.005-1.030); Sqamous Epithelial <5 /HPF (None Seen); Urine Bacteria <20 /HPF (<20); Urine Bilirubin NEGATIVE (Negative); Urine Blood Negative (Negative); Urine Clarity Clear (Clear); Urine Color Light-Yellow (Yellow); Urine Culture Reflex Order NOT NEEDED; Urine Glucose NEGATIVE (Negative); Urine Ketones NEGATIVE (Negative); Urine Microscopic Reflex YN ORDER UMIC; Urine Mucus Slight /HPF (None Seen); Urine Nitrite NEGATIVE (Negative); Urine Protein TRACE (Negative); Urine RBC None Seen /HPF (None Seen); Urine Urobilinogen Normal (Normal); Urine WBC <5 /HPF (<5)
[2024-10-19 06:09] LABS: Absolute Basophils 0.1 K/uL (0-0.5); Absolute Lymphocytes (CBC) 1.9 K/uL (0.7-4.9); Absolute Monocytes 0.7 K/uL (0.1-1.3); Basophils % 0.8 % (0-1.3); Eosinophils % 0.1 % (0-4.4); Hematocrit 30.6 % (36.0-45.0); Hemoglobin 10.1 g/dL (12.0-15.0); Lymphocytes % 17.5 % (15.3-44.8); MCHC 33.1 g/dL (32.0-36.0); MCV 90.4 fL (80-100); MPV 6.8 fL (7.6-11.3); Monocytes % 6.4 % (3.3-12.3); Neutrophils % 75.2 % (41.7-73.7); Platelets 327 thou/uL (152-406); RBC Red Blood Cell Count 3.39 M/uL (3.86-4.86); Red Cell Distribution Width 17.2 % (12.1-15.2)
[2024-10-19 06:35] LABS: Anion Gap 10.4 mEq/L (5.0-15.0); Magnesium 2.1 mg/dL (1.6-2.4); Potassium 3.4 mEq/L (3.5-5.1); Troponin High Sensitivity 3.3 pg/mL (<58.9)
[2024-10-19] MEDS: [UNRECOGNIZED DRUG - OTHER] IH SCH (09:00)
[2024-10-19] MEDS ORDERED: ENOXAPARIN 40 MG/0.4 ML SQ SCH (09:00)
[2024-10-19] MEDS ORDERED: VANCOMYCIN 2 GM in NA CHLORIDE 0.9% 500 ML IVPB SCH (09:00)
[2024-10-19] MEDS: SODIUM CHLORIDE 1 GM TAB PO SCH (09:47)
[2024-10-19] MEDS: VANCOMYCIN 1.5 GM in NA CHLORIDE 0.9% 500 ML IVPB SCH (09:50)
[2024-10-19] MEDS: ONDANSETRON 4 MG/2 ML VIAL IV PRN (09:50)
--- NOTE | 2024-10-19 09:52 | P.PN ---
Date of Service: 10/19/24 Subjective: thoracentesis cancelled per pulm (not enough fluid) felt some relief in pain after muscle relaxer back pain relieved with pain meds and pressure offloading chest pain continues, not as bad today afebrile reviewed prior CT images - She reports pain is at locations of bone mets ROS: 10 point ROS as noted above, otherwise negative Physical Exam: GEN: Alert, oriented, appears fatigued CV: Regular rate and rhythm, no edema Pulm: Nonlabored respirations on 2L NC ABD: soft, nontender, nondistended Neuro: Normal speech, global weakness, no focal motor deficit. Problem List: Lung cancer with bone metastasis Cancer related pain Left Pleural effusion with possible underlying Atelectasis vs Pneumonia Old left-sided rib fractures Hyponatremia Syndrome of inappropriate ADH secretion Hx of DVT/PE Lung cancer with bone metastasis Cancer related pain Left Pleural effusion with possible underlying Atelectasis vs Pneumonia Old left-sided rib fractures presented from [facility] for chest pain, generalized weakness. Denies fever/chills. Associated uncontrolled cancer-related limiting mobility and functional status. Patient currently not undergoing treatment due to poor functional status. Reportedly too weak to transport to radiation. Spoke to Dr. Cordoba (oncology) who concurred patient's uncontrolled pain limits her mobility and transportation for cancer treatment including radiation and recommended optimization of her pain management. Goal is to control patient's pain to see if her functional status will improve enough to start chemo and radiation. CTA chest (10/19): Enlarging left pleural effusion with either underlying atelectasis or pneumonia. There is some fissural thickening on the right which may be from subsegmental atelectasis or possibly some mild interstitial edema. Also noted metastatic disease including suspicious left upper lobe nodule and osseous metastatic disease is grossly similar. CXR (10/19): Increased interstitial thickening bilaterally and left pleural effusion possibly reflecting a combination of increasing mild interstitial edema, small left pleural effusion, and possibly other underlying atelectasis or pneumonia Pneumonia not ruled out. Empiric Abx started on admission to cover possible pneumonia. continue empiric Levaquin / Vancomycin (10/18-) Dr. Vanessa, pulm consulted Thoracentesis cancelled per pulm. Dr. Vanessa felt there was not enough fluid to drain after reviewing CT imaging oxygen supplementation as needed; wean as tolerated. Pain control - IV morphine added 10/19 for breakthrough pain PT consult. Hyponatremia Syndrome of inappropriate ADH secretion Daily labs. Fluid restriction 1.5L/day Continue home dose sodium tablets. Hx of DVT/PE CTA negative for pulm embolism. +old PE resolved. Xarelto held for thoracentesis today. Procedure cancelled per pulm. Dr. Vanessa felt there was not enough fluid to drain after reviewing CT imaging. VTE: Xarelto held for possible thoracentesis, will restart Code: Full Dispo: Back to SNF Time Spent Managing Pts Care (In Minutes): 55
--- NOTE | 2024-10-19 11:47 | P.CNS ---
Date of Consult: 10/19/24 Reason for Consult: Left-sided pleural effusion and COPD Chief Complaint: Chest pain and back pain History of Present Illness: Patient is 74 years of age has stage IV lung cancer not on any treatment right now she previously received chemotherapy did not tolerate biological treatment admitted with right-sided chest pain denies any fever or chills patient has severe COPD on oxygen and was found to have a small effusion on the left side Allergies budesonide [From [employer]] Allergy (Verified 09/09/24 06:08) unknown formoterol [From [employer]] Allergy (Verified 09/09/24 06:08) unknown glycopyrrolate [From [employer]] Allergy (Verified 09/09/24 06:08) unknown Home Medications: Acetaminophen [Tylenol] 2 tab PO Q4H PRN 10/18/24 Albuterol Neb [Proventil 0.083% Neb Soln] 1 aero IH TID 10/18/24 Bisacodyl [Laxative Suppository] 10 mg MI DAILY PRN 10/18/24 Fluticasone Propionate [24 Hour Allergy] 1 spray MARIBELL DAILY 10/18/24 Guaifenesin [Mucinex] 600 mg PO Q12H 10/18/24 Hydrocodone Bit/Acetaminophen [[place] 10-325 Tablet] 1 tab PO TID PRN 10/18/24 L.acidoph,Paracasei, B.lactis [Probiotic] 1 cap PO DAILY 10/18/24 Levofloxacin [Levaquin] 500 mg PO DAILY 10/18/24 Ondansetron [Zofran (Odt)*] 4 mg PO Q8H PRN 10/18/24 Polyethylene Glycol 3350 [Miralax] 17 g PO DAILY 10/18/24 Potassium Chloride 25 meq PO DAILY 10/18/24 Rivaroxaban [Xarelto] 20 mg PO DAILY AT SUPPER 10/18/24 Sodium Chloride 1 g PO DAILY 10/18/24 Trazodone [Desyrel*] 50 mg PO BEDTIME 10/18/24 Umeclidinium Brm/Vilanterol Tr [Anoro Ellipta 62.5-25 Mcg INH] 1 puff IH DAILY 10/18/24 diazePAM [Diazepam] 2 mg PO Q8H PRN 10/18/24 predniSONE [Deltasone] 10 mg PO DAILY 10/18/24 - Past Medical/Surgical History Diabetic: No -: pleural effusions -: lung cancer -: COPD -: L4 metastasis -: PE/DVT -: left hip fx -: L hip sx hysterectomy - Family History Father Medical History: Cancer Brother Medical History: Cancer - Social History Smoking Status: Former smoker Alcohol use: No CD- Drugs: No Caffeine use: No Place of Residence: [place] Review of Systems 10-point ROS is otherwise unremarkable Respiratory: Cough, Shortness of Breath Cardiovascular: Chest Pain Physical Examination Temp Pulse Resp BP Pulse Ox 97.7 F 100 H 16 140/79 100 10/19/24 08:00 10/19/24 08:00 10/19/24 09:40 10/19/24 08:00 10/19/24 09:40 General: Alert, Oriented x3 HEENT: Atraumatic Neck: Supple Respiratory: Clear to auscultation bilaterally, Diminished Cardiovascular: No edema, Regular rate/rhythm, Normal S1 S2 Gastrointestinal: Normal bowel sounds, Soft and benign Laboratory Data (last 24 hrs) 10/18/24 10/18/24 10/18/24 12:25 12:25 12:25 WBC 11.90 H Hgb 10.5 L Hct 32.7 L Plt Count 354 PT 17.4 H INR 1.56 Sodium 133 L Potassium 3.7 BUN 9 Creatinine 0.47 L Glucose 85 Magnesium 2.1 Total Bilirubin 0.4 AST 19 ALT 15 Alkaline Phosphatase 157 H - Problems (1) COPD exacerbation Current Visit: Yes Status: Acute Plan: Patient is 74 years of age admitted with chest discomfort shortness of breath has right sided pain there is no evidence of thromboembolism small pleural effusion on the left side patient has stage IV lung cancer due to severe COPD bronchodilator therapy and oxygen at home vital signs are stable thoracentesis is not indicated right now there is not a significant effusion evidence of active sepsis does use bronchodilator at home DC IV antibiotics changed to p.o. levofloxacin add prednisone patient has metastatic lung cancer prognosis poor patient also has home O2 eval discharge in a day or so
[2024-10-19] MEDS: ARFORMOTEROL TARTRATE 15 MCG/2 ML VIAL.NEB NEB SCH (12:00)
[2024-10-19] MEDS: predniSONE 20 MG TAB PO SCH (12:03)
[2024-10-19] MEDS: POTASSIUM CL SA 10 MEQ TAB PO ONE (12:03)
[2024-10-19] MEDS: POTASSIUM 25 MEQ EFFERV TAB PO ONE (12:26)
[2024-10-20] MEDS: MORPHINE 2 MG/ML SYR IV PRN (00:49)
[2024-10-20 06:22] LABS: Hemoglobin 10.7 g/dL (12.0-15.0); MCHC 33.5 g/dL (32.0-36.0); MCV 89.6 fL (80-100); MPV 6.6 fL (7.6-11.3); Platelets 365 thou/uL (152-406); RBC Red Blood Cell Count 3.57 M/uL (3.86-4.86); Red Cell Distribution Width 17.2 % (12.1-15.2)
[2024-10-20 06:39] LABS: Albumin 2.6 g/dL (3.4-5.0); Albumin/Globulin Ratio 0.7 (1.1-1.8); Anion Gap 12.3 mEq/L (5.0-15.0); Bilirubin Total 0.4 mg/dL (0.2-1.0); Magnesium 2.2 mg/dL (1.6-2.4); Potassium 4.3 mEq/L (3.5-5.1); Protein, Total 6.6 g/dL (6.4-8.2)
--- NOTE | 2024-10-20 08:29 | RAD REPORT ---
EXAMINATION: ONE VIEW CHEST XR CLINICAL INDICATION: Female, 74 years old.,f/u effusion TECHNIQUE: Frontal chest projection is submitted. Examination is limited by patient positioning and t echnique. COMPARISON: 10/18/2024 FINDINGS: Left perihilar and basilar pleural-parenchymal opacification, stable. No pneumothorax or right-sided effusion. The heart is normal in size. Mediastinal contours are unremarkable. IMPRESSION: Stable findings of left lung pleural-parenchymal opacification, may suggest pneumonia with associated effusion.
[2024-10-20] MEDS: FUROSEMIDE 40 MG/4 ML VIAL IV SCH (09:11)
[2024-10-20] MEDS: levoFLOXacin 750 MG TAB PO SCH (09:12)
--- NOTE | 2024-10-20 09:47 | P.PN ---
Date of Service: 10/20/24 Subjective: Robbins minimal relief with morphine yesterday, felt some relief this morning Appears more comfortable in bed this morning. Not in as much distress mainly dealing with back pain Breathing okay, urinating without issues hasn't ambulated or gotten out of bed much since July per family ROS: 10 point ROS as noted above, otherwise negative Physical Exam: GEN: Alert, oriented, NAD CV: Regular rate and rhythm, no edema Pulm: Nonlabored respirations on 2L NC ABD: soft, nontender, nondistended Neuro: Normal speech, global weakness, no focal motor deficit. Problem List: Lung cancer with bone metastasis Cancer related pain Left Pleural effusion with possible underlying Atelectasis vs Pneumonia Old left-sided rib fractures Hyponatremia Syndrome of inappropriate ADH secretion Hx of DVT/PE Lung cancer with bone metastasis Cancer related pain Left Pleural effusion with possible underlying Atelectasis vs Pneumonia Old left-sided rib fractures presented from [facility] for chest pain, generalized weakness. Denies fever/chills. Associated uncontrolled cancer-related limiting mobility and functional status. Patient currently not undergoing treatment due to poor functional status. Reportedly too weak to transport to radiation. Spoke to Dr. Cordoba (oncology) who concurred patient's uncontrolled pain limits her mobility and transportation for cancer treatment including radiation and recommended optimization of her pain management. Goal is to control patient's pain to see if her functional status will improve enough to start chemo and radiation. change norco to q4h, continue fentanyl patch 10/20 CTA chest (10/19): Enlarging left pleural effusion with either underlying atelectasis or pneumonia. There is some fissural thickening on the right which may be from subsegmental atelectasis or possibly some mild interstitial edema. Also noted metastatic disease including suspicious left upper lobe nodule and osseous metastatic disease is grossly similar. CXR (10/19): Increased interstitial thickening bilaterally and left pleural effusion possibly reflecting a combination of increasing mild interstitial edema, small left pleural effusion, and possibly other underlying atelectasis or pneumonia repeat CXR (10/20): Stable findings of left lung pleural-paranchymal opacification. May suggest pneumonia with associated effusion. Pneumonia not ruled out. Empiric Abx started on admission to cover possible pneumonia. IV Levaquin / Vancomycin (10/18-10/19) deescalated to only oral levaquin (10/20- ) Thoracentesis cancelled 10/[address] Vanessa felt there was not enough fluid to drain after reviewing CT imaging continue Prednisone 20 mg BID; added 10/19 Start IV lasix 40 mg daily 10/20 Dr. Vanessa is following PT eval Hyponatremia Syndrome of inappropriate ADH secretion Daily labs. Fluid restriction 1.5L/day Continue home dose sodium tablets. Hx of DVT/PE CTA negative for pulm embolism. +old PE resolved. Xarelto held for thoracentesis 10/19 Procedure cancelled per pulm. Dr. Vanessa felt there was not enough fluid to drain after reviewing CT imaging. VTE: Xarelto held for possible thoracentesis, will restart Code: Full Dispo: Back to SNF Time Spent Managing Pts Care (In Minutes): 55
[2024-10-20] MEDS: HYDROCODONE/APAP 10/325 TAB PO PRN (11:22)
[2024-10-20] MEDS: PNEUMOCOCCAL VACCINE 0.5 ML IMVAC ONE (11:23)
[2024-10-21 05:59] LABS: Hematocrit 32.5 % (36.0-45.0); Hemoglobin 10.9 g/dL (12.0-15.0); MCH 29.5 pg (27.0-35.0); MCHC 33.4 g/dL (32.0-36.0); MCV 88.4 fL (80-100); MPV 6.3 fL (7.6-11.3); Platelets 365 thou/uL (152-406); RBC Red Blood Cell Count 3.68 M/uL (3.86-4.86); Red Cell Distribution Width 17.5 % (12.1-15.2)
[2024-10-21 06:19] LABS: Anion Gap 12.2 mEq/L (5.0-15.0); Potassium 4.2 mEq/L (3.5-5.1)
[2024-10-21] MEDS: POLYETHYL GLY 3350 17 GM/DOSE PO SCH (08:48)
[2024-10-21] MEDS ORDERED: FLEET ENEMA ADULT PR ONE (14:49)
--- NOTE | 2024-10-21 14:55 | P.PN ---
Date of Service: 10/21/24 Subjective: pain better controlled with norco q4h feels bloated, no BM in ~5 days or so requesting enema ROS: 10 point ROS as noted above, otherwise negative Physical Exam: GEN: Alert, oriented, NAD CV: Regular rate and rhythm, no edema Pulm: Nonlabored respirations on 2L NC ABD: soft, nontender, mild distention Neuro: Normal speech, global weakness, no focal motor deficit. 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 Denies fever/chills. Associated uncontrolled cancer-related limiting mobility and functional status. change norco to q4h, continue fentanyl patch 10/20 CTA chest (10/19): Enlarging left pleural effusion with either underlying atelectasis or pneumonia. There is some fissural thickening on the right which may be from subsegmental atelectasis or possibly some mild interstitial edema. Also noted metastatic disease including suspicious left upper lobe nodule and osseous metastatic disease is grossly similar. CXR (10/19): Increased interstitial thickening bilaterally and left pleural effusion possibly reflecting a combination of increasing mild interstitial edema, small left pleural effusion, and possibly other underlying atelectasis or pneumonia repeat CXR (10/20): Stable findings of left lung pleural-paranchymal opacification. May suggest pneumonia with associated effusion. Pneumonia not ruled out. Empiric Abx started on admission to cover possible pneumonia. IV Levaquin / Vancomycin (10/18-10/19) deescalated to only oral levaquin (10/20- ) Thoracentesis cancelled 10/[address] Vanessa felt there was not enough fluid to drain after reviewing CT imaging continue Prednisone 20 mg BID; added 10/19 Start IV lasix 40 mg daily 10/20 Dr. Vanessa is following PT eval Constipation multifactorial, seems to have some constipation at baseline suspect component of opioid induced stool softener miralax enema ordered today Hyponatremia Syndrome of inappropriate ADH secretion Daily labs. Fluid restriction 1.5L/day Continue home dose sodium tablets. Hx of DVT/PE CTA negative for pulm embolism. +old PE resolved. Xarelto held for thoracentesis 10/19 Procedure cancelled per pulm. Dr. Vanessa felt there was not enough fluid to drain after reviewing CT imaging. restart xarelto VTE: Xarelto Code: Full Dispo: Back to SNF, ~1-2 days Time Spent Managing Pts Care (In Minutes): 55
--- NOTE | 2024-10-21 16:54 | EKG ---
Test Date: 2024-10-19 Test Time: 09:02:42 Inside Sales Account Executive: DANIELLA MEASUREMENT RESULTS: Intervals: Rate: 114 NC: 154 QRSD: 80 QT: 324 QTc: 446 [place]: P: 37 NC: 154 QRS: 10 T: 28 INTERPRETIVE STATEMENTS: Sinus tachycardia Otherwise normal ECG Compared to ECG 10/18/2024 12:05:04 Sinus rhythm no longer present Electronically Signed On 10-21-24 16:47:04 SUPERVISOR INTERNATIONAL RESERVATIONS by Chucky Pelaez
--- NOTE | 2024-10-21 17:00 | EKG ---
Test Date: 2024-10-18 Test Time: 12:05:04 [employer]fuels Technology Development Manager: PARISH MEASUREMENT RESULTS: Intervals: Rate: 97 AR: 146 QRSD: 78 QT: 348 QTc: 441 [place]: P: 31 AR: 146 QRS: 20 T: 48 INTERPRETIVE STATEMENTS: Normal sinus rhythm Normal ECG Compared to ECG 10/01/2024 18:24:42 No significant changes Electronically Signed On 10-21-24 16:48:40 PAPER TESTING SUPERVISOR by Chucky Pelaez
[2024-10-22 06:44] LABS: Anion Gap 10.7 mEq/L (5.0-15.0); Magnesium 2.1 mg/dL (1.6-2.4); Potassium 3.7 mEq/L (3.5-5.1)
--- NOTE | 2024-10-22 07:53 | RAD REPORT ---
Procedure: Chest Single View HISTORY: Cough COMPARISON: October 20, 2024 FINDINGS: Small left pleural effusion without significant change. Minimal worsening in the haziness of the left lung could represent mild worsening in atelectasis/infi ltrate. Lung nodules unchanged Heart is normal size
[2024-10-22] MEDS: POTASSIUM CL SA 10 MEQ TAB PO ONE (08:28)
[2024-10-22] MEDS: POTASSIUM 25 MEQ EFFERV TAB PO ONE (09:40)
--- NOTE | 2024-10-22 11:50 | P.PN ---
Date of Service: 10/22/24 Subjective: no acute events overnight working with PT afebrile no BM yet, still bloated, shallow respirations pain improving ROS: 10 point ROS as noted above, otherwise negative Physical Exam: GEN: Alert, oriented, NAD CV: Regular rate and rhythm, no edema Pulm: Nonlabored respirations on 2L NC ABD: soft, nontender, mild distention Neuro: Normal speech, global weakness, no focal motor deficit. 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 Denies fever/chills. Associated uncontrolled cancer-related limiting mobility and functional status. change norco to q4h, continue fentanyl patch 10/20 CTA chest (10/19): Enlarging left pleural effusion with either underlying atelectasis or pneumonia. There is some fissural thickening on the right which may be from subsegmental atelectasis or possibly some mild interstitial edema. Also noted metastatic disease including suspicious left upper lobe nodule and osseous metastatic disease is grossly similar. CXR (10/19): Increased interstitial thickening bilaterally and left pleural effusion possibly reflecting a combination of increasing mild interstitial edema, small left pleural effusion, and possibly other underlying atelectasis or pneumonia repeat CXR (10/20): Stable findings of left lung pleural-paranchymal opacification. May suggest pneumonia with associated effusion. repeat CXR (10/22): Minimal worsening in the haziness of the left lung. Small left pleural effusion without significant change. Pneumonia not ruled out. Empiric Abx started on admission to cover possible pneumonia. IV Levaquin / Vancomycin (10/18-10/19) deescalated to only oral levaquin (10/20- ) Thoracentesis cancelled 10/[address] Vanessa felt there was not enough fluid to drain after reviewing CT imaging continue Prednisone 20 mg BID; added 10/19 s/p IV lasix (10/20-10/21) Dr. Vanessa is following PT eval Constipation multifactorial, seems to have some constipation at baseline suspect component of opioid induced stool softener miralax enema 10/22 Hyponatremia Syndrome of inappropriate ADH secretion Daily labs. Fluid restriction 1.5L/day Continue home dose sodium tablets. Hx of DVT/PE CTA negative for pulm embolism. +old PE resolved. Xarelto held for thoracentesis 10/19 Procedure cancelled per pulm. Dr. Vanessa felt there was not enough fluid to drain after reviewing CT imaging. Xarelto restarted VTE: xarelto restarted Code: Full Dispo: Back to SNF, ~1-2 days Time Spent Managing Pts Care (In Minutes): 55
[2024-10-22] MEDS: FLEET ENEMA ADULT PR SCH (14:00)
[2024-10-22] MEDS: RIVAROXABAN 20 MG TABLET PO SCH (16:25)
[2024-10-23 05:34] LABS: Hematocrit 34.8 % (36.0-45.0); Hemoglobin 11.4 g/dL (12.0-15.0); MCH 29.5 pg (27.0-35.0); MCHC 32.6 g/dL (32.0-36.0); MCV 90.5 fL (80-100); MPV 6.5 fL (7.6-11.3); Platelets 358 thou/uL (152-406); RBC Red Blood Cell Count 3.85 M/uL (3.86-4.86); Red Cell Distribution Width 17.7 % (12.1-15.2)
[2024-10-23 05:51] LABS: Anion Gap 8.2 mEq/L (5.0-15.0); Magnesium 2.3 mg/dL (1.6-2.4); Potassium 4.2 mEq/L (3.5-5.1)
--- NOTE | 2024-10-23 11:13 | P.PN ---
Date of Service: 10/23/24 Subjective: no acute events overnight continues with diffuse pains, ~same still tachy in 90-110s abd less distended no fevers ROS: 10 point ROS as noted above, otherwise negative Physical Exam: GEN: Alert, oriented, NAD CV: Regular rate and rhythm, no edema Pulm: Nonlabored respirations on 3L NC , diminised at left lung base ABD: soft, nontender, mild distention Neuro: Normal speech, global weakness, no focal motor deficit. 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 Denies fever/chills. Associated uncontrolled cancer-related limiting mobility and functional status. change norco to q4h, continue fentanyl patch 10/20 CTA chest (10/19): Enlarging left pleural effusion with either underlying atelectasis or pneumonia. subsegmental atelectasis vs edema. metastatic disease: suspicious SABINO nodule and osseous metastatic disease is grossly similar. CXR (10/19): Increased interstitial thickening bilaterally and left pleural effusion possibly reflecting a combination of increasing mild interstitial edema, small left pleural effusion, and possibly other underlying atelectasis or pneumonia repeat CXR (10/20): Stable findings . May suggest pneumonia with associated effusion. repeat CXR (10/22): Minimal worsening in the haziness of the left lung. Small left pleural effusion without significant change. Pneumonia not ruled out. Empiric Abx started on admission to cover possible pneumonia. IV Levaquin / Vancomycin (10/18-10/19) deescalated to only oral levaquin (10/20- ) Thoracentesis cancelled 10/[address] Vanessa felt there was not enough fluid to drain after reviewing CT imaging continue Prednisone 20 mg BID; added 10/19 s/p IV lasix (10/20-10/21) Dr. Vanessa is following PT eval repeat CXR in AM tachycardia ongoing, but slighty improved Constipation multifactorial, seems to have some constipation at baseline suspect component of opioid induced stool softener, miralax s/p enema 10/22 Hyponatremia Syndrome of inappropriate ADH secretion Daily labs. Fluid restriction 1.5L/day Continue home dose sodium tablets. Hx of DVT/PE CTA negative for pulm embolism. +old PE resolved. Xarelto held for thoracentesis 10/19 Procedure cancelled per pulm. Dr. Vanessa felt there was not enough fluid to drain after reviewing CT imaging. restarted 10/22 VTE: xarelto Code: Full Dispo: Back to SNF, ~Friday Time Spent Managing Pts Care (In Minutes):45
[2024-10-23] MEDS ORDERED: ALBUTEROL 2.5 MG/3 ML NEB SOL NEB PRN (17:08)
[2024-10-23] MEDS ORDERED: IPRATROPIUM BROM 0.5MG/2.5ML NEB PRN (17:08)
[2024-10-24 06:03] LABS: Absolute Lymphocytes (CBC) 0.6 K/uL (0.7-4.9); Absolute Monocytes 0.6 K/uL (0.1-1.3); Absolute Neutrophil 11.5 K/uL (1.8-8.0); Basophils % 0.1 % (0-1.3); Eosinophils % 0.1 % (0-4.4); Hematocrit 34.9 % (36.0-45.0); Hemoglobin 11.2 g/dL (12.0-15.0); Lymphocytes % 4.5 % (15.3-44.8); MCH 29.2 pg (27.0-35.0); MCHC 32.2 g/dL (32.0-36.0); MCV 90.9 fL (80-100); MPV 6.5 fL (7.6-11.3); Monocytes % 4.7 % (3.3-12.3); Neutrophils % 90.6 % (41.7-73.7); Nucleated Red Blood Cells % 0.1 % (0-0); Platelets 319 thou/uL (152-406); RBC Red Blood Cell Count 3.84 M/uL (3.86-4.86); Red Cell Distribution Width 17.6 % (12.1-15.2)
[2024-10-24 06:22] LABS: Albumin/Globulin Ratio 0.8 (1.1-1.8); Anion Gap 10.1 mEq/L (5.0-15.0); Bilirubin Total 0.3 mg/dL (0.2-1.0); Globulin 3.7 g/dL (2.3-3.5); Magnesium 2.1 mg/dL (1.6-2.4); Potassium 4.1 mEq/L (3.5-5.1); Protein, Total 6.7 g/dL (6.4-8.2)
--- NOTE | 2024-10-24 08:37 | RAD REPORT ---
EXAMINATION: ONE VIEW CHEST XR CLINICAL INDICATION: f/u opacities, edema /pna /atelectasis TECHNIQUE: Frontal chest projection is submitted. Examination is limited by patient positioning and t echnique. COMPARISON: 10/22/2024 FINDINGS: Pulmonary nodule again seen in the left upper lobe, unchanged. Small left pleural effusion with patch y opacities in the left lung base appear stable. The right lung is grossly clear. The heart is upper limit of normal in size. No displaced fractures identified. IMPRESSION: Stable chest since comparative study.
[2024-10-24 09:10] LABS: Blood Morphology Comment NOT SEEN (NOT SEEN); Platelet Estimate ADEQ; Platelets Clumped FEW; White Blood Cell Scan OK (OK)
--- NOTE | 2024-10-24 09:57 | P.PN ---
Date of Service: 10/24/24 Subjective: no events overnight breathing okay on 1.5L NC remains slightly tachy, slightly improved on review of past hospitalizations, seems to run in the 90-100s at baseline urine dark tyrell in color; hasn't been drinking much per patient (maybe 2 small bottles /day) ROS: 10 point ROS as noted above, otherwise negative Physical Exam: GEN: Alert, oriented, NAD CV: Sinus Tachycardia, no edema Pulm: Nonlabored respirations on 1.5L NC , diminised at left lung base ABD: soft, nontender, mild distention Neuro: Normal speech, global weakness, no focal motor deficit. 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 Denies fever/chills. Associated uncontrolled cancer-related limiting mobility and functional status. change norco to q4h, continue fentanyl patch 10/20 CTA chest (10/19): Enlarging left pleural effusion with either underlying atelectasis or pneumonia. subsegmental atelectasis vs edema. metastatic disease: suspicious SABINO nodule and osseous metastatic disease is grossly s imilar. CXR (10/19): Increased interstitial thickening bilaterally and left pleural effusion possibly reflecting a combination of increasing mild interstitial edema, small left pleural effusion, and possibly other underlying atelectasis or pneumonia repeat CXR (10/20): Stable findings . May suggest pneumonia with associated effusion. repeat CXR (10/22): Minimal worsening in the haziness of the left lung. Small left pleural effusion without significant change. Pneumonia not ruled out. Empiric Abx started on admission to cover possible pneumonia. IV Levaquin / Vancomycin (10/18-10/19) deescalated to only oral levaquin (10/20- ) Thoracentesis cancelled 10/[address] Vanessa felt there was not enough fluid to drain after reviewing CT imaging continue Prednisone 20 mg BID; added 10/19 s/p IV lasix (10/20-10/21) Dr. Vanessa is following PT eval repeat CXR with similar stable findings compared to CXR 10/22 tachycardia ongoing, but slighty improved. Seems to run in the 90-100s at baseline over the last few months Constipation, acute on chronic multifactorial, seems to have some constipation at baseline suspect component of opioid induced stool softener, miralax s/p enema 10/22 Hyponatremia, chronic Syndrome of inappropriate ADH secretion Daily labs. Fluid restriction 1.5L/day Continue home dose sodium tablets. Hx of DVT/PE CTA negative for pulm embolism. +old PE resolved. Xarelto held for thoracentesis 10/19 Procedure cancelled per pulm. Dr. Vanessa felt there was not enough fluid to drain after reviewing CT imaging. restarted 10/22 VTE: xarelto Code: Full Dispo: Back to SNF, anticipate dc tomorrow Time Spent Managing Pts Care (In Minutes):45
[2024-10-25] MEDS: MORPHINE 4 MG/ML SYR IV PRN (00:41)
[2024-10-25 06:24] LABS: Hematocrit 32.3 % (36.0-45.0); Hemoglobin 10.6 g/dL (12.0-15.0); MCH 29.8 pg (27.0-35.0); MCHC 32.9 g/dL (32.0-36.0); MCV 90.8 fL (80-100); MPV 6.5 fL (7.6-11.3); Platelets 315 thou/uL (152-406); RBC Red Blood Cell Count 3.56 M/uL (3.86-4.86); Red Cell Distribution Width 17.9 % (12.1-15.2)
[2024-10-25 06:42] LABS: Albumin 2.9 g/dL (3.4-5.0); Albumin/Globulin Ratio 0.9 (1.1-1.8); Bilirubin Total 0.3 mg/dL (0.2-1.0); Globulin 3.4 g/dL (2.3-3.5); Magnesium 2.1 mg/dL (1.6-2.4); Protein, Total 6.3 g/dL (6.4-8.2)
[2024-10-25 08:12] VITALS: BP 148/82; TEMP 97.4
[2024-10-25 09:07] VITALS: O2SAT 99
--- NOTE | 2024-10-25 09:11 | P.DS ---
Admission Date: 10/19/24 Discharge Date: 10/25/24 Disposition: TRANSFER TO [facility] - REHAB Discharge Condition: GOOD Reason for Admission: Chest pain and back pain Consultations: Pulmonology - Dr. Vanessa Brief History of Present Illness: 74yo F, PMH: lung cancer, pleural effusion, history of bone metastasis at multiple locations including the spine, ribs, history of left pathologic hip fracture secondary to bone metastasis Patient was transferred from [facility] due to complaint of chest pain and generalized weakness. Patient reported chest pain worse with breathing, denies any palpitation. Patient denies any fever or chills. Patient stated she received only 1 dose of chemotherapy in August 2024 since she was diagnosed with cancer in June 2024. She has had trouble with mobility and has been been unable to go for further treatment. She was plan for radiation treatment however she states that she was too weak and was in too much pain they could not get her onto the radiation table. Patient was recently hospitalized for chest pain and discharged to [facility] for rehab. She has a history of pulm embolism and left lower extremity DVT which has been treated with Xarelto. CTA thorax reported no PE as identified in previous scans, however it noted worsening left pleural effusion with underlying atelectasis versus pneumonia, metastatic pulmonary nodules and bony metastasis. Patient has a history of chronic respiratory failure and was on her baseline 3 L by nasal cannula in the ER. Patient reports her inability to transfer or stand is mostly due to uncontrolled pain. Patient is hospitalized for further management. Hospital Course: Problem List: Lung cancer with bone metastasis Cancer related pain Left Pleural effusion with possible underlying Atelectasis vs Pneumonia Old left-sided rib fractures Hyponatremia Syndrome of inappropriate ADH secretion Hx of DVT/PE Physician discharge instructions: Patient presented with chest pain, shortness of breath, and generalized weakness, secondary to COPD exacerbation and slightly enlarged left pleural effusion and metastatic cancer. CTA chest noted an enlarging left pleural effusion with either underlying atelectasis or pneumonia, also noted stable metastatic disease, similar to past imaging. Her pain correlated with metastatic lesions in her bones. Pain improved with more frequent dosing of hydrocodone and addition of fentanyl patch. She reported being able to move around more, with increased flexibility after i ncreasing pain medications. Advised patient to follow up with her oncologist for further management, and to consider following up with a chronic pain management doctor in the near future for further management. Regarding her left pleural effusion, this was more likely secondary to atelectasis. She was afebrile and without leukocytosis. No other signs/symptoms of sepsis. She did receive low dose of IV lasix x 2 days, with minimal change of effusion. She was having darker urine and constipation, and drinks minimal water, so this was discontinued to avoid further dehydration. Given her risk factors and presentation, she was empirically treated with antibiotics, and completed ~7 days while here. IV vanc / levaquin was deescalated to only oral levaquin, and patient continued to improve. Dr. Vanessa, pulm was consulted. Initially planning for thoracentesis to possibly alleviate her pain/shortness of breath, however Dr. Vanessa felt there was not enough fluid to drain after reviewing CT imaging. Patient completed 1 week of antibiotics while hospitalized (10/18-10/25). Repeat chest xray's continued to demonstrate improvement / stability. Patient was feeling better, breathing more comfortably, and was deemed stable for discharge. She was noted to have mild leukocytosis during last days in hospital, secondary to steroid use. Recommend repeat blood work in 1-2 weeks to monitor WBC. WBC on day of discharge: 14.0 She was noted to be constipated early in hospitalization. Patient was started on a bowel regimen including stool softener, miralax and had some improvement. She was able to have a bowel movement with relief after enema on 10/22. CTA on admission did note resolution of old Pulmonary embolism previously seen, no new PE. Medications: Prednisone 20 mg for 3 more days. Fentanyl patch 25mcg increased norco-10 to q4h PRN Follow up: PCP 3-5 days Oncology 2-4 weeks Chronic pain management doctor in near future Please call to schedule / confirm appointments Physical Exam: GEN: Alert, oriented, NAD CV: Sinus Tachycardia, no edema Pulm: Nonlabored respirations on 2L NC, clear bilaterally ABD: soft, nontender, nondistended Neuro: Normal speech, no focal motor deficit. Vital Signs/Physical Exam: Temp Pulse Resp BP Pulse Ox 97.4 F 92 H 18 148/82 H 98 10/25/24 08:00 10/25/24 08:00 10/25/24 08:22 10/25/24 08:00 10/25/24 08:22 Laboratory Data at Discharge: WBC 14.00 thou/uL (4.3-10.9) H 10/25/24 05:59 Hgb 10.6 g/dL (12.0-15.0) L 10/25/24 05:59 Hct 32.3 % (36.0-45.0) L 10/25/24 05:59 Plt Count 315 thou/uL (152-406) 10/25/24 05:59 PT 17.4 SECONDS (10.0-13.0) H 10/18/24 12:25 INR 1.56 10/18/24 12:25 Sodium 132 mEq/L (136-145) L 10/25/24 05:59 Potassium 4.0 mEq/L (3.5-5.1) 10/25/24 05:59 BUN 16 mg/dL (7-18) 10/25/24 05:59 Creatinine 0.57 mg/dL (0.55-1.02) 10/25/24 05:59 Glucose 98 mg/dL (74-106) 10/25/24 05:59 Phosphorus 3.0 mg/dL (2.5-4.9) 10/19/24 05:47 Magnesium 2.1 mg/dL (1.6-2.4) 10/25/24 05:59 Total Bilirubin 0.3 mg/dL (0.2-1.0) 10/25/24 05:59 AST 28 U/L (15-37) 10/25/24 05:59 ALT 29 U/L (13-56) 10/25/24 05:59 Alkaline Phosphatase 147 U/L (45-117) H 10/25/24 05:59 Home Medications: Acetaminophen [Tylenol] 2 tab PO Q4H PRN 10/18/24 Albuterol Neb [Proventil 0.083% Neb Soln] 1 aero IH TID 10/18/24 Bisacodyl [Laxative Suppository] 10 mg TN DAILY PRN 10/18/24 Fluticasone Propionate [24 Hour Allergy] 1 spray MARIBELL DAILY 10/18/24 Guaifenesin [Mucinex] 600 mg PO Q12H 10/18/24 L.acidoph,Paracasei, B.lactis [Probiotic] 1 cap PO DAILY 10/18/24 Ondansetron [Zofran (Odt)*] 4 mg PO Q8H PRN 10/18/24 Polyethylene Glycol 3350 [Miralax] 17 g PO DAILY 10/18/24 Potassium Chloride 25 meq PO DAILY 10/18/24 Rivaroxaban [Xarelto] 20 mg PO DAILY AT SUPPER 10/18/24 Sodium Chloride 1 g PO DAILY 10/18/24 Trazodone [Desyrel*] 50 mg PO BEDTIME 10/18/24 Umeclidinium Brm/Vilanterol Tr [Anoro Ellipta 62.5-25 Mcg INH] 1 puff IH DAILY 10/18/24 diazePAM [Diazepam] 2 mg PO Q8H PRN 10/18/24 predniSONE [Prednisone*] 10 mg PO DAILY 10/18/24 Fluticasone [Flonase 50MCG Nasal [place]*] 2 sprays MARIBELL DAILY PRN bottle 10/25/24 Hydrocodone Bit/Acetaminophen [[place] 10-325 Tablet] 1 tab PO Q4H PRN #15 10/25/24 Sodium Chloride Tab [Sodium Chloride*] 1 gm PO DAILY tab 10/25/24 Umeclidinium Brm/Vilanterol Tr [Anoro Ellipta 62.5-25 Mcg INH] 1 each IH DAILY 10/25/24 fentaNYL [Fentanyl] 25 mcg TD Q3D #1 10/25/24 methocarbamoL [Robaxin*] 750 mg PO Q6HP PRN tab 10/25/24 predniSONE [Prednisone*] 20 mg PO DAILY 3 Days #3 tab 10/25/24 New Medications: fentaNYL [Fentanyl] 25 mcg TD Q3D #1 Hydrocodone Bit/Acetaminophen [[place] 10-325 Tablet] 1 tab PO Q4H PRN #15 PRN Reason: Pain Scale 8-10 (Severe) predniSONE [Prednisone*] 20 mg PO DAILY 3 Days #3 tab Physician Discharge Instructions: Physician discharge instructions: Patient presented with chest pain, shortness of breath, and generalized weakness, secondary to COPD exacerbation and slightly enlarged left pleural effusion and metastatic cancer. CTA chest noted an enlarging left pleural effusion with either underlying atelectasis or pneumonia, also noted stable metastatic disease, similar to past imaging. Her pain correlated with metastatic lesions in her bones. Pain improved with more frequent dosing of hydrocodone and addition of fentanyl patch. She reported being able to move around more, with increased flexibility after increasing pain medications. Advised patient to follow up with her oncologist for further management, and to consider following up with a chronic pain management doctor in the near future for further management. Regarding her left pleural effusion, this was more likely secondary to atelectasis. She was afebrile and without leukocytosis. No other signs/symptoms of sepsis. She did receive low dose of IV lasix x 2 days, with minimal change of effusion. She was having darker urine and constipation, and drinks minimal water, so this was discontinued to avoid further dehydration. Given her risk factors and presentation, she was empirically treated with a ntibiotics, and completed ~7 days while here. IV vanc / levaquin was deescalated to only oral levaquin, and patient continued to improve. Dr. Vanessa pulm was consulted. Initially planning for thoracentesis to possibly alleviate her pain/shortness of breath, however Dr. Vanessa felt there was not enough fluid to drain after reviewing CT imaging. Patient completed 1 week of antibiotics while hospitalized (10/18-10/25). Repeat chest xray's continued to demonstrate improvement / stability. Patient was feeling better, breathing more comfortably, and was deemed stable for discharge. She was noted to have mild leukocytosis during last days in hospital, secondary to steroid use. Recommend repeat blood work in 1-2 weeks to monitor WBC. WBC on day of discharge: 14.0 She was noted to be constipated early in hospitalization. Patient was started on a bowel regimen including stool softener, miralax and had some improvement. She was able to have a bowel movement with relief after enema on 10/22. CTA on admission did note resolution of old Pulmonary embolism previously seen, no new PE. Medications: Prednisone 20 mg for 3 more days. Fentanyl patch 25mcg increased norco-10 to q4h PRN Follow up: PCP 3-5 days Oncology 2-4 weeks Chronic pain management doctor in near future Please call to schedule / confirm appointments Followup: Glenn Garcia MD [Primary Care Provider] - Time spent managing pt's care (in minutes): 45
== END 2024-10-25 11:04 | DRG 542 ==
LOC: ER 11:56 → 4TH 17:11 → OBSVTOIN 10-19 14:20
PROVIDERS: ADMIT Internal Medicine; ATTEND Hospitalist
DX: C79.51 Secondary malignant neoplasm of bone (principal); J18.9 Pneumonia, unspecified organism; J44.1 Chronic obstructive pulmonary disease with (acute) exacerbation; C34.90 Malignant neoplasm of unspecified part of unspecified bronchus or lung; E22.2 Syndrome of inappropriate secretion of antidiuretic hormone; J96.10 Chronic respiratory failure, unspecified whether with hypoxia or hypercapnia; J44.0 Chronic obstructive pulmonary disease with (acute) lower respiratory infection; G89.3 Neoplasm related pain (acute) (chronic); K59.09 Other constipation; I10 Essential (primary) hypertension; D64.9 Anemia, unspecified; S22.32XD Fracture of one rib, left side, subsequent encounter for fracture with routine healing; Z88.8 Allergy status to other drugs, medicaments and biological substances; Z90.710 Acquired absence of both cervix and uterus; Z86.718 Personal history of other venous thrombosis and embolism; Z79.52 Long term (current) use of systemic steroids; Z79.899 Other long term (current) drug therapy; Z79.01 Long term (current) use of anticoagulants; Y95 Nosocomial condition
CPT/HCPCS: 36415; 71045; 71275; 80048; 80053; 80076; 81001; 83735; 83880; 84100; 84132; 84484; 85025; 85027; 85610; 93005; 94010; 94640; 94760; 96365; 96367; 96375; 97110; 97161; 99285; G0378; J0696; J1650; J1940; J2270; J2405; J7030; J7040; J7050; J7512; J7605; J7613; J7644; Q9967

== ENCOUNTER 2024-11-07 01:39 | Emergency (ER) | payer OTHER ==
[2024-11-07] MEDS ORDERED: FENTANYL CITR 100 MCG/2 ML ONE (02:10)
--- NOTE | 2024-11-07 03:29 | ER ---
Nurse's Notes [facility] [place] Name: Kayalh Roper Age: 74 yrs Sex: Female : 1950 Arrival Date: 11/07/2024 Time: 01:39 Bed 8 Private MD: Diagnosis: Low back pain Presentation: 11/07 02:14 Chief complaint: EMS states: pt here for pain control. has hx of bone cancer, lower bm8 back pain and lung cancer. Coronavirus screen: At this time, the client does not indicate any symptoms associated with coronavirus-19. Ebola Screen: Patient negative for fever greater than or equal to 101.5 degrees Fahrenheit, and additional compatible Ebola Virus Disease symptoms Patient denies exposure to infectious person. Patient denies travel to an Ebola-affected area in the 21 days before illness onset. No symptoms or risks identified at this time. Initial Sepsis Screen: Does the patient meet any 2 criteria? No. Patient's initial sepsis screen is negative. Does the patient have a suspected source of infection? No. Patient's initial sepsis screen is negative. Risk Assessment: Do you want to hurt yourself or someone else? Patient reports no desire to harm self or others. Onset of symptoms is unknown. 02:14 Method Of Arrival: EMS: [facility] bm8 02:14 Acuity: JASPER 2 bm8 02:19 Care prior to arrival: IV initiated. 20 GA, in the right hand. bm8 Triage Assessment: 02:17 General: Appears distressed, uncomfortable, Behavior is calm, cooperative, appropriate bm8 for age. Pain: Complains of pain in back Pain currently is 10 out of 10 on a pain scale. EENT: No deficits noted. No signs and/or symptoms were reported regarding the EENT system. Neuro: No deficits noted. Level of Consciousness is awake, alert, obeys commands, Oriented to person, place, time, situation, Appropriate for age. Cardiovascular: Capillary refill < 3 seconds in bilateral fingers Patient's skin is warm and dry. Respiratory: Airway is patent Respiratory effort is even, unlabored, Respiratory pattern is regular, symmetrical. Musculoskeletal: Circulation, motion, and sensation intact. pt has bone cancer and c/o lower back pain. Historical: - Allergies: 02:17 budesonide; bm8 02:17 formoterol fumarate; bm8 02:17 glycopyrrolate; bm8 - PMHx: 02:17 bone cancer (rib fractures); COPD; DVTleft leg; Hypertensive disorder; Lung Cancer; rib bm8 fractures; - PSHx: 02:17 hysterectomy; Ligation of fallopian tube; bm8 - Immunization history:: Adult Immunizations up to date. - Infectious Disease History:: Denies. - Social history:: Smoking status: Patient denies any tobacco usage or history of. Screenin:19 [facility] ED Fall Risk Assessment (Adult) History of falling in the last 3 months, bm8 including since admission Yes- fall prone (multiple falls) (3 pts) Confusion or Disorientation No (0 pts) Intoxicated or Sedated No (0 pts) Impaired Gait Yes (1 pt) Mobility Assist Device Used No (0 pt) Altered Elimination No (0 pt) Score/Fall Risk Level 0 - 2 = Low Risk Oriented to surroundings, Maintained a safe environment, Educated pt \T\ family on fall prevention, incl call for assistance when getting out of bed, Assessed \T\ reinforced patient's understanding of fall precautions, Hourly rounding (assess needs \T\ fall precautionary measures) done, Used ambulatory aids as needed (educated on \T\ assisted with), Used gait belt as appropriate. Abuse screen: Denies threats or abuse. Nutritional screening: No deficits noted. Tuberculosis screening: No symptoms or risk factors identified. Assessment: 02:21 Reassessment: see triage assessment. Neuro: No deficits noted. Level of Consciousness bm8 is awake, alert, obeys commands, Oriented to person, place, time, situation, Appropriate for age. 02:56 Reassessment: Patient appears in no apparent distress at this time. Patient and/or bm8 family updated on plan of care and expected duration. Pain level reassessed. pt is resting with eyes closed breathing is even unlabored with symmetrical rise and fall. Patient states feeling better. Patient states symptoms have improved. 03:48 Reassessment: Called [facility] to explain that pt was being discharged bm8 and needed a ride home. The Nurse there stated that she would get a ride and call back with an ETA. 04:56 Reassessment: called back to find out when ETA for ambulance was coming and was told bm8 one would not becoming per their admin policies. We need to arrange transportation back. 04:58 Reassessment: Patient appears in no apparent distress at this time. Patient and/or bm8 family updated on plan of care and expected duration. Pain level reassessed. Patient is alert, oriented x 3, equal unlabored respirations, skin warm/dry/pink. Patient states feeling better. Patient states symptoms have improved. Vital Signs: 02:14 BP 139 / 89; Pulse 120; Resp 17; Temp 97.8; Pulse Ox 91% on 2 lpm NC; Weight 95.25 kg; bm8 Height 5 ft. 5 in. ; Pain 10/10; 02:56 BP 135 / 83; Pulse 114; Resp 17; Pulse Ox 95% ; dd2 03:48 BP 136 / 83; Pulse 113; Resp 20; Temp 97.8; Pulse Ox 94% on R/A; Pain 0/10; bm8 04:58 BP 131 / 87; Pulse 111; Resp 16; Temp 97.8; Pulse Ox 99% ; Pain 0/10; bm8 02:14 Body Mass Index 34.95 (95.25 kg, 165.1 cm) bm8 02:14 Pain Scale: Adult bm8 03:48 Pain Scale: Adult bm8 04:58 Pain Scale: Adult bm8 Yesenia Coma Score: 02:19 Eye Response: spontaneous(4). Motor Response: obeys commands(6). Verbal Response: bm8 oriented(5). Total: 15. 03:48 Eye Response: spontaneous(4). Motor Response: obeys commands(6). Verbal Response: bm8 oriented(5). Total: 15. 04:58 Eye Response: spontaneous(4). Motor Response: obeys commands(6). Verbal Response: bm8 oriented(5). Total: 15. ED Course: 01:40 Patient arrived in ED. jj6 01:56 Tadeo Weber MD is Attending Physician. ec2 02:17 Triage completed. bm8 02:17 Arm band placed on left wrist. bm8 02:19 Patient has correct armband on for positive identification. Placed in gown. Bed in low bm8 position. Call light in reach. Side rails up X2. Adult w/ patient. Client placed on continuous cardiac and pulse oximetry monitoring. NIBP monitoring applied. Pulse ox on. NIBP on. Door closed. Noise minimized. Warm blanket given. Pillow given. Verbal reassurance given. Head of bed lowered. 02:19 No provider procedures requiring assistance completed. Maintain EMS IV. Dressing bm8 intact. Good blood return noted. Site clean \T\ dry. Gauge \T\ site: 20g right hand. Patient maintains SpO2 saturation greater than 95% on room air. 02:56 Mak Monique, RN is Primary Nurse. bm8 05:21 IV discontinued, intact, bleeding controlled, No redness/swelling at site. Pressure lg3 dressing applied. Administered Medications: 02:14 Drug: fentaNYL (PF) IVP 100 mcg IVP once Route: IVP; Site: right hand; bm8 02:57 Follow up: Response: No adverse reaction bm8 03:43 Drug: morphine IVP or IV 4 mg IVP once over 4 mins Route: IVP; Infused Over: 4 mins; bm8 Site: right hand; 03:44 Follow up: Response: No adverse reaction bm8 05:19 Drug: morphine IVP or IV 4 mg IVP once over 4 mins Route: IVP; Infused Over: 4 mins; lg3 Site: right hand; 05:19 Follow up: Response: No adverse reaction; Medication administered at discharge. lg3 Medication: 02:19 VIS not applicable for this client. bm8 Outcome: 03:29 Discharge ordered by . ec2 05:20 Discharged to home via ambulance, lg3 05:20 Condition: stable 05:20 Discharge instructions given to patient, Instructed on discharge instructions, follow up and referral plans. Demonstrated understanding of instructions, follow-up care, 05:21 Patient left the ED. lg3 Signatures: Fang Esquivel RN RN lg3 Frances Gold jj6 Tadeo Weber MD MD ec2 Mak Monique, RN RN bm8 RAVEN HERNÁNDEZ, RN RN dd2
--- NOTE | 2024-11-07 03:29 | EDPHYS ---
Physician Documentation [facility] Name: Kaylah Roper Age: 74 yrs Sex: Female : 1950 Arrival Date: 11/07/2024 Time: 01:39 Bed 8 Private MD: ED Physician Tadeo Weber HPI: 11/07 02:01 This 74 yrs old Black Female presents to ER via Unassigned with complaints of Back Pain.ec2 02:01 Patient with history of chronic pain, history of lung cancer, bone cancer, arrives ec2 today for chronic low back pain. Patient reports no falls injuries or trauma. Patient reports she is chronically on fentanyl patches as well as Robaxin and is having worsening pain. No red flag symptoms.. Historical: - Allergies: 02:17 budesonide; bm8 02:17 formoterol fumarate; bm8 02:17 glycopyrrolate; bm8 - PMHx: 02:17 bone cancer (rib fractures); COPD; DVTleft leg; Hypertensive disorder; Lung Cancer; rib bm8 fractures; - PSHx: 02:17 hysterectomy; Ligation of fallopian tube; bm8 - Immunization history:: Adult Immunizations up to date. - Infectious Disease History:: Denies. - Social history:: Smoking status: Patient denies any tobacco usage or history of. ROS: 02:02 Constitutional: as per hpi ec2 Exam: 02:02 Constitutional: GEN: NAD Head: atraumatic Eyes: EOMI Ears: External ears are ec2 normal. CV: regular rate LUNGS: no respiratory distress ABD: non-distended SKIN: no evidence of rashes MSK: No C/C/L spine deformities or step-offs appreciated, reproducible L-spine TTP without deformities or crepitus appreciated. Vital Signs: 02:14 BP 139 / 89; Pulse 120; Resp 17; Temp 97.8; Pulse Ox 91% on 2 lpm NC; Weight 95.25 kg; bm8 Height 5 ft. 5 in. ; Pain 10/10; 02:56 BP 135 / 83; Pulse 114; Resp 17; Pulse Ox 95% ; dd2 03:48 BP 136 / 83; Pulse 113; Resp 20; Temp 97.8; Pulse Ox 94% on R/A; Pain 0/10; bm8 04:58 BP 131 / 87; Pulse 111; Resp 16; Temp 97.8; Pulse Ox 99% ; Pain 0/10; bm8 02:14 Body Mass Index 34.95 (95.25 kg, 165.1 cm) bm8 02:14 Pain Scale: Adult bm8 03:48 Pain Scale: Adult bm8 04:58 Pain Scale: Adult bm8 Yesenia Coma Score: 02:19 Eye Response: spontaneous(4). Motor Response: obeys commands(6). Verbal Response: bm8 oriented(5). Total: 15. 03:48 Eye Response: spontaneous(4). Motor Response: obeys commands(6). Verbal Response: bm8 oriented(5). Total: 15. 04:58 Eye Response: spontaneous(4). Motor Response: obeys commands(6). Verbal Response: bm8 oriented(5). Total: 15. MDM: 01:56 Medical Screening Exam initiated ec2 02:02 Data reviewed: vital signs, nurses notes. ED course: Patient with history of multiple ec2 cancers as well as chronic pain arrives today for low back pain. Examination yields reproducible low back TTP without step-offs or deformities appreciated. Patient without red flag symptoms to indicate spinal cord pathology. Will give the patient IV fentanyl for pain control. Suspect chronic pain. Doubt fracture given lack of mechanism, doubt spinal cord pathology given lack of associated complaint. Accordingly we will forego advanced imaging such as MRI or CT scan.. 03:28 ED course: On reassessment patient with marked improvement in symptoms. Patient does ec2 remain tachycardic, previous external records, patient with heart rates typically in the mid upper 90s and low 100s. I suspect pain is exacerbating her tachycardia today. I considered other acute processes such as osteomyelitis, acute fracture, spinal cord pathology however have a lower clinical index suspicion for this and will accordingly forego advanced imaging or testing. Patient discharged home. Turn precautions given.. Administered Medications: 02:14 Drug: fentaNYL (PF) IVP 100 mcg IVP once Route: IVP; Site: right hand; bm8 02:57 Follow up: Response: No adverse reaction bm8 03:43 Drug: morphine IVP or IV 4 mg IVP once over 4 mins Route: IVP; Infused Over: 4 mins; bm8 Site: right hand; 03:44 Follow up: Response: No adverse reaction bm8 05:19 Drug: morphine IVP or IV 4 mg IVP once over 4 mins Route: IVP; Infused Over: 4 mins; lg3 Site: right hand; 05:19 Follow up: Response: No adverse reaction; Medication administered at discharge. lg3 Disposition Summary: 11/07/24 03:29 Discharge Ordered Notes: Location: Home ec2 Condition: Stable ec2 Diagnosis - Low back pain ec2 Followup: ec2 - With: Private Physician - When: - Reason: Re-evaluation by your physician Discharge Instructions: - Discharge Summary Sheet ec2 - Chronic Back Pain ec2 Forms: - Medication Reconciliation Form ec2 - Antibiotic Education ec2 - Prescription Opioid Use ec2 - Patient Portal Instructions ec2 - Leadership Thank You Letter ec2 Signatures: Fang Esquivel RN RN lg3 Tadeo Weber MD MD ec2 Mak Monique RN RN bm8
[2024-11-07] MEDS ORDERED: MORPHINE 4 MG/ML SYR ONE (03:35)
[2024-11-07] MEDS ORDERED: MORPHINE 2 MG/ML SYR ONE (05:16)
[2024-11-07 05:24] VITALS: TEMP 97.8
[2024-11-07 05:28] VITALS: BP 131/87; O2SAT 99
== END 2024-11-07 05:21 | disposition home or self-care (01) ==
LOC: ER 01:39
DX: M54.50 Low back pain, unspecified (principal); Z85.830 Personal history of malignant neoplasm of bone; Z85.118 Personal history of other malignant neoplasm of bronchus and lung
CPT/HCPCS: 96375; 96374; 99284; J3010; J2270

== ENCOUNTER 2024-11-24 18:40 | Emergency (ER) | payer OTHER ==
[2024-11-24] MEDS ORDERED: NA CHLORIDE 0.9% 0 ML ONE (19:23)
[2024-11-24 19:54] LABS: Absolute Basophils 0.1 K/uL (0-0.5); Absolute Lymphocytes (CBC) 2.1 K/uL (0.7-4.9); Absolute Monocytes 0.7 K/uL (0.1-1.3); Absolute Neutrophil 10.4 K/uL (1.8-8.0); Basophils % 0.7 % (0-1.3); Eosinophils % 0.2 % (0-4.4); Hematocrit 34.3 % (36.0-45.0); Hemoglobin 11.2 g/dL (12.0-15.0); Lymphocytes % 15.8 % (15.3-44.8); MCH 30.1 pg (27.0-35.0); MCHC 32.6 g/dL (32.0-36.0); MCV 92.3 fL (80-100); MPV 7.8 fL (7.6-11.3); Monocytes % 5.4 % (3.3-12.3); Neutrophils % 77.9 % (41.7-73.7); Nucleated Red Blood Cells % 0.3 % (0-0); Platelets 379 thou/uL (152-406); RBC Red Blood Cell Count 3.72 M/uL (3.86-4.86); Red Cell Distribution Width 19.4 % (12.1-15.2)
[2024-11-24 19:56] LABS: PT Prothrombin Time 22.9 SECONDS (10-13.0); Protime INR 2.08
[2024-11-24 20:05] LABS: Albumin 2.7 g/dL (3.4-5.0); Albumin/Globulin Ratio 0.6 (1.1-1.8); Anion Gap 12.3 mEq/L (5.0-15.0); Bilirubin Total 0.6 mg/dL (0.2-1.0); Globulin 4.3 g/dL (2.3-3.5); Potassium 3.3 mEq/L (3.5-5.1)
[2024-11-24 20:05] LABS: Influenza A Ag Negative; Influenza B Ag Negative; SARS-CoV-2 Antigen Rapid Res Negative (Negative)
--- NOTE | 2024-11-24 20:14 | RAD REPORT ---
Procedure: Chest Single View HISTORY: Tachypnea COMPARISON: October 24, 2024 FINDINGS: Left upper lobe nodule without significant change. Progression in the left lower lobe atelectasis. Small left pleural effusion. Right lung appears clear of acute infiltrate. The heart is normal size
[2024-11-24] MEDS ORDERED: ACETAMINOPHEN 500 MG TAB ONE (21:04)
[2024-11-24] MEDS ORDERED: ONDANSETRON 4 MG/2 ML VIAL ONE (21:15)
--- NOTE | 2024-11-24 22:26 | RAD REPORT ---
EXAM: CT brain without contrast HISTORY: Alteration of consciousness/confusion COMPARISON: None TECHNIQUE: Multiple contiguous axial images were obtained and a CT of the brain without contrast.. Sagittal and coronal reconstruction performed. Automated exposure control, adjustment of the mA and/or kV according to patient size, and/or iterative reconstruction. Unless otherwise specified, incidental f indings do not require dedicated imaging follow-up FINDINGS: An intracranial bleed is not seen Ventricles are normal caliber No extra-axial fluid collection noted No significant hypodensity within the brain Chronic opacification of the mastoids. No fluid within the sinuses. IMPRESSION: No acute intracranial abnormality noted. If the patient continues to have symptoms to suggest an acute intracranial abnormality then MRI of th e brain would be recommended.
--- NOTE | 2024-11-24 22:40 | RAD REPORT ---
EXAM: Chest Abdomen Pelvis W Cont CLINICAL INDICATION: Chest and abdominal pain TECHNIQUE: CT chest, abdomen and pelvis was performed, with 100 cc Isovue-300 IV contrast, as per de partment protocol. Axial, sagittal and coronal reconstructions were obtained. One or more of the following dose reduction techniques were used: Automated exposure control, adjustment of the mA and/o r kV according to the patient size, and/or iterative reconstruction. Unless otherwise specified, incidental findings do not require dedicated imaging follow-up. [id number]. Oral contrast not given. This limits evaluation of the bowel. COMPARISON: CT lumbar spine June [address] chest September 2024 FINDINGS: Some images are degraded by patient motion artifact Left lung nodule without significant change. Left lower lobe atelectasis with small to moderate left pleural effusion. No mediastinal hematoma noted No pleural effusion.. No pericardial effusion Liver, spleen, pancreas, adrenals, kidneys and bladder do not demonstrate an acute traumatic injury. There is no evidence of diverticulitis Progression in extensive metastases involving thoracic and lumbar spine in addition to sacrum.. Multi ple pathologic compression fractures are present. L4 vertebral body is entirely replaced by neoplasm with extension into the spinal canal. T1, T2 and T3 vertebral bodies are almost entirely rep laced by tumor. Extension into the spinal canal noted. Additional skeletal metastatic disease is present. Progression in right scapular metastasis IMPRESSION: Progression in extensive metastatic disease to the spine. MRI with contrast would be helpful for furt her evaluation if clinically indicated
--- NOTE | 2024-11-24 23:37 | EDPHYS ---
Physician Documentation [facility] Name: Kaylah Roper Age: 74 yrs Sex: Female : 1950 Arrival Date: 11/24/2024 Time: 18:40 Bed 5 Private MD: ED Physician Shahid Rowe HPI: 11/24 19:50 This 74 yrs old Black Female presents to ER via EMS with complaints of AMS. rn 19:50 The patient presents with confusion, decreased responsiveness. Associated signs and rn symptoms: Pertinent negatives: abdominal pain, chest pain, headache. The patient has not experienced similar symptoms in the past. EMS and family member report altered mental status, decreased responsiveness. Patient was in hospice for pain control, was receiving morphine and group home, got discharged home and discharged with narcotic pain medication. Family continued to give her pain medication as she reports chronic back pain. She was noted to have decreased responsiveness, given Narcan with improvement of symptoms. No fever or chills. Son reports has not been acting herself for the last week but cannot give much more information than that. No fall or injury.. Historical: - Allergies: 19:00 budesonide; jb4 19:00 formoterol fumarate; jb4 19:00 glycopyrrolate; jb4 - PMHx: 19:00 COPD; bone cancer (rib fractures); DVTleft leg; Hypertensive disorder; Lung Cancer; rib jb4 fractures; - PSHx: 19:00 Ligation of fallopian tube; hysterectomy; jb4 - Immunization history:: Adult Immunizations up to date. - Infectious Disease History:: Denies. - Social history:: Smoking status: Patient denies any tobacco usage or history of. - Family history:: not pertinent. - Hospitalizations: : No recent hospitalization is reported. ROS: 19:50 Constitutional: Negative for fever, chills, and weight loss, Cardiovascular: Negative rn for chest pain, palpitations, and edema, Respiratory: Negative for shortness of breath, cough, wheezing, and pleuritic chest pain, Abdomen/GI: Negative for abdominal pain, nausea, vomiting, diarrhea, and constipation, Back: Positive for chronic back pain MS/Extremity: Negative for injury and deformity, Skin: Negative for injury, rash, and discoloration, Neuro: Positive for altered mental status Exam: 19:50 Constitutional: This is a well developed, well nourished patient who is awake, rn tachypneic and restless Head/Face: Normocephalic, atraumatic. Eyes: Pupils equal round and reactive to light, extra-ocular motions intact. ENT: Dry mucous membranes Cardiovascular: Tachycardic, regular Respiratory: Mild tachypnea, no wheezing or retractions Abdomen/GI: Soft, nontender MS/ Extremity: Pulses equal, no cyanosis. Neurovascular intact. Full, normal range of motion. Equal circumference. Neuro: Awake and alert, GCS 15, oriented to person, place. Cranial nerves II-XII grossly intact. Motor strength 4/5 in all extremities. Sensory grossly intact. Vital Signs: 18:52 BP 148 / 85; Pulse 123; Resp 23; Temp 98.8(O); Pulse Ox 98% on 2 lpm NC; Weight 90.72 jb4 kg (M); 20:44 BP 98 / 82; Pulse 109; Resp 22; Pulse Ox 98% on 2 lpm NC; jb4 21:25 BP 120 / 84; Pulse 102; Resp 20; Pulse Ox 100% on 2 lpm NC; kd3 MDM: 18:53 Medical Screening Exam initiated rn 20:16 Transition of care: After a detail discussion of the patient's case, care is rn transferred to Shahid Rowe MD. 11/25 01:27 Differential Diagnosis: Opioid side effect, polypharmacy, cancer. Data reviewed: vital rt signs, nurses notes, lab test result(s), radiologic studies. Consideration of Admission/Observation Escalation of care including admission/observation considered. Patient is currently on hospice, mental status significantly improving her stay in the emergency department. She has significant cancer related pain. Her goals of care not curative, palliative only. At this time, do not believe that admission to the hospital would likely benefit the patient, discussed this with patient, son, they agree with this assessment, patient to follow-up with hospice provider.. I considered the following discharge prescriptions or medication management in the emergency department Medications were administered in the Emergency Department. See MAR. Independent interpretation of the following test(s) in the Emergency Department CT Scan: My interpretation is No intracranial hemorrhage seen on interpretation of CT scan images. Care significantly affected by the following chronic conditions: Cancer. Counseling: I had a detailed discussion with the patient and/or guardian regarding the historical points, exam findings, and any diagnostic results supporting the discharge/admit diagnosis, lab results, radiology results, the need for outpatient follow up. 11/24 18:54 Order name: Blood Culture Adult (2) rn 11/24 18:54 Order name: CBC with Diff; Complete Time: 20:09 rn 11/24 18:54 Order name: CMP; Complete Time: 20:09 rn 11/24 18:54 Order name: Lactate w/ 2H reflex if indic.; Complete Time: 20:14 rn 11/24 18:54 Order name: Protime (+inr); Complete Time: 20:09 rn 11/24 18:54 Order name: Ptt, Activated; Complete Time: 20:09 rn 11/24 18:57 Order name: COVID-19 Ag + Flu A+B Ag; Complete Time: 20:09 rn 11/24 20:03 Order name: Glucose, Ancillary Testing; Complete Time: 20:09 EDMS 11/24 18:54 Order name: Chest Single View XRAY; Complete Time: 20:47 rn 11/24 20:10 Order name: CT Head Brain wo Cont; Complete Time: 22:43 rn 11/24 22:06 Order name: Chest Abdomen Pelvis W Cont; Complete Time: 22:43 EDMS 11/24 18:54 Order name: Accucheck; Complete Time: 19:52 rn 11/24 18:54 Order name: Cardiac monitoring; Complete Time: 19:31 rn 11/24 18:54 Order name: EKG - Nurse/Tech; Complete Time: 19:45 rn 11/24 18:54 Order name: IV Saline Lock - Large Bore; Complete Time: 19:34 rn 11/24 18:54 Order name: Labs collected and sent; Complete Time: 19:34 rn 11/24 18:54 Order name: O2 Per Protocol; Complete Time: 19:19 rn 11/24 18:54 Order name: O2 Sat Monitoring; Complete Time: 19:19 rn 11/24 18:54 Order name: Vital Signs; Complete Time: 19:19 rn Administered Medications: 11/24 19:30 Not Given (Physician Discretion): ns 0.9% 500 ml 500 ml IV at 1 bolus once; to be given jb4 as a bolus over 30 minutes 21:11 Drug: Acetaminophen PO 1000 mg PO once Route: PO; jb4 23:48 Follow up: Response: No adverse reaction jb4 21:17 Drug: Ondansetron IVP 4 mg IVP once; over 2 minutes Route: IVP; Site: left hand; kd3 23:49 Follow up: Response: No adverse reaction jb4 23:48 Drug: [place] PO 10 mg-325 mg 1 tabs PO once Route: PO; jb4 Disposition Summary: 11/24/24 23:36 Discharge Ordered Notes: Location: Home rt Problem: an ongoing problem rt Symptoms: have improved rt Condition: Fair rt Diagnosis - Altered mental status rt - Pain related to cancer rt Followup: rt - With: Private Physician - When: 2 - 3 days - Reason: Discharge Instructions: - Discharge Summary Sheet rt - Hospice rt - Managing Cancer Pain rt Forms: - Medication Reconciliation Form rt - Antibiotic Education rt - Prescription Opioid Use rt - Patient Portal Instructions rt - Leadership Thank You Letter rt Signatures: Dispatcher [employer] EDMS Cory Garcia MD MD rn Bryson, James, RN RN jb4 Oksana Oneill RN RN kd3 Shahid Rowe MD MD rt Corrections: (The following items were deleted from the chart) 18:55 18:55 BLOOD CULTURE*+BA.LAB.BRZ ordered. EDMS EDMS 18:55 18:55 CBC+H.LAB.BRZ ordered. EDMS EDMS 18:55 18:55 COMPREHENSIVE METABOLIC PANEL+C.LAB.BRZ ordered. EDMS EDMS 18:55 18:55 LACTATE+C.LAB.BRZ ordered. EDMS EDMS 18:55 18:55 PROTIME (+INR)+COAG.LAB.BRZ ordered. EDMS EDMS 18:55 18:55 PTT, ACTIVATED+COAG.LAB.BRZ ordered. EDMS EDMS 18:55 18:55 Urinalysis+U.LAB.BRZ ordered. EDMS EDMS 18:55 18:55 Chest Single View+RAD.RAD.BRZ ordered. EDMS EDMS 18:57 18:57 COVID-19 Ag + Flu A+B Ag+I.LAB.BRZ ordered. EDMS EDMS 22:05 20:10 Chest Abdomen Pelvis W Con+CT.RAD.BRZ ordered. EDMS EDMS
--- NOTE | 2024-11-24 23:37 | ER ---
Nurse's Notes [facility] Name: Kaylah Roper Age: 74 yrs Sex: Female : 1950 Arrival Date: 11/24/2024 Time: 18:40 Bed 5 Private MD: Diagnosis: Altered mental status;Pain related to cancer Presentation: 11/24 18:52 Chief complaint: EMS states: Pt was at [facility] in [place] for rehab. Was jb4 receiving end of life morphine every hour. Was discharged home and was apparently given the wrong prescription and continued receiving it at home. Pt was altered at home, given 2mg of narcan IM and 4mg of narcan IV, 4mg of zofran IV and 100ml of NS IV. pt now able to say her name and wake up, is on 2L NC per home O2 and satting 98%. Coronavirus screen: At this time, the client does not indicate any symptoms associated with coronavirus-19. Ebola Screen: No symptoms or risks identified at this time. Initial Sepsis Screen: Does the patient meet any 2 criteria? RR > 20 per min. Altered Mental Status. HR > 90 bpm. Yes Does the patient have a suspected source of infection? No. Patient's initial sepsis screen is negative. Risk Assessment: Do you want to hurt yourself or someone else? Patient reports no desire to harm self or others. Onset of symptoms was November 24, 2024. Transition of care: patient was not received from another setting of care. 18:52 Method Of Arrival: EMS: [facility] jb4 18:52 Acuity: JASPER 2 jb4 Historical: - Allergies: 19:00 budesonide; jb4 19:00 formoterol fumarate; jb4 19:00 glycopyrrolate; jb4 - PMHx: 19:00 COPD; bone cancer (rib fractures); DVTleft leg; Hypertensive disorder; Lung Cancer; rib jb4 fractures; - PSHx: 19:00 Ligation of fallopian tube; hysterectomy; jb4 - Immunization history:: Adult Immunizations up to date. - Infectious Disease History:: Denies. - Social history:: Smoking status: Patient denies any tobacco usage or history of. - Family history:: not pertinent. - Hospitalizations: : No recent hospitalization is reported. Screenin:35 [facility] ED Fall Risk Assessment (Adult) History of falling in the last 3 months, jb4 including since admission No falls in past 3 months (0 pts) Confusion or Disorientation Yes (5 pts) Intoxicated or Sedated Yes (3 pts) Impaired Gait Yes (1 pt) Mobility Assist Device Used Yes (1 pt) Altered Elimination No (0 pt) Score/Fall Risk Level 3 or more points = High Risk Oriented to surroundings, Maintained a safe environment. Abuse screen: Denies threats or abuse. Nutritional screening: No deficits noted. Tuberculosis screening: No symptoms or risk factors identified. Assessment: 19:34 General: Appears in no apparent distress. comfortable, Behavior is calm, cooperative. jb4 Pain: Complains of pain in back. Neuro: Level of Consciousness is awake, alert, obeys commands, Oriented to person. Cardiovascular: Patient's skin is warm and dry. Respiratory: Airway is patent Respiratory effort is even, unlabored, Respiratory pattern is regular, symmetrical. Derm: Skin is intact, Skin is dry, Skin is normal, Skin temperature is warm. 20:44 Reassessment: Pt remains altered and A\T\Ox1. awakens spontaneously with respirations jb4 even and unlabored. 21:30 Reassessment: Patient appears in no apparent distress at this time. No changes from jb4 previously documented assessment. Patient and/or family updated on plan of care and expected duration. Pain level reassessed. 23:00 Reassessment: Patient appears in no apparent distress at this time. Patient and/or jb4 family updated on plan of care and expected duration. Pain level reassessed. Pt adjusted in bed. remains A\T\Ox1. Son reports pt has been like this since being discharged home from the rehab facility on 11/13/24. ER physician is aware. Vital Signs: 18:52 BP 148 / 85; Pulse 123; Resp 23; Temp 98.8(O); Pulse Ox 98% on 2 lpm NC; Weight 90.72 jb4 kg (M); 20:44 BP 98 / 82; Pulse 109; Resp 22; Pulse Ox 98% on 2 lpm NC; jb4 21:25 BP 120 / 84; Pulse 102; Resp 20; Pulse Ox 100% on 2 lpm NC; kd3 ED Course: 18:49 Patient arrived in ED. rv1 18:53 Cory Garcia MD is Attending Physician. rn 19:00 Triage completed. jb4 19:00 Arm band placed on right wrist. jb4 19:34 Malachi Castillo, RN is Primary Nurse. jb4 19:34 Ptt, Activated Sent. jb4 19:34 Protime (+inr) Sent. jb4 19:34 Lactate w/ 2H reflex if indic. Sent. jb4 19:34 CMP Sent. jb4 19:34 CBC with Diff Sent. jb4 19:34 Blood Culture Adult (2) Sent. jb4 19:34 COVID-19 Ag + Flu A+B Ag Sent. jb4 19:35 Patient has correct armband on for positive identification. Placed in gown. Bed in low jb4 position. Call light in reach. Side rails up X 1. Provided Education on: plan of care to son at the bedside. 19:35 No provider procedures requiring assistance completed. Maintain EMS IV. Dressing jb4 intact. Site clean \T\ dry. Gauge \T\ site: 20gLhand. 19:42 Chest Single View XRAY In Process Unspecified. EDMS 19:45 CBC with Diff Sent. mm11 19:45 CMP Sent. mm11 19:46 Lactate w/ 2H reflex if indic. Sent. mm11 19:46 Protime (+inr) Sent. mm11 19:46 Ptt, Activated Sent. mm11 19:46 EKG done, by ED staff, reviewed by Cory Garcia MD. mm11 20:14 Attending Physician role handed off by Cory Garcia MD rt 20:14 Shahid Rowe MD is Attending Physician. rt 22:05 CT Head Brain wo Cont In Process Unspecified. EDMS 22:06 Chest Abdomen Pelvis W Cont In Process Unspecified. EDMS 04/03 00:11 IV discontinued, intact, bleeding controlled, No redness/swelling at site. Pressure vc1 dressing applied. Administered Medications: 11/24 19:30 Not Given (Physician Discretion): ns 0.9% 500 ml 500 ml IV at 1 bolus once; to be given jb4 as a bolus over 30 minutes 21:11 Drug: Acetaminophen PO 1000 mg PO once Route: PO; jb4 23:48 Follow up: Response: No adverse reaction jb4 21:17 Drug: Ondansetron IVP 4 mg IVP once; over 2 minutes Route: IVP; Site: left hand; kd3 23:49 Follow up: Response: No adverse reaction jb4 23:48 Drug: [place] PO 10 mg-325 mg 1 tabs PO once Route: PO; jb4 Medication: 19:35 VIS not applicable for this client. jb4 Outcome: 23:36 Discharge ordered by . rt 11/25 00:10 Discharged to home via ambulance, vc1 Condition: stable 00:10 Discharge instructions given to patient, family, Instructed on discharge instructions, vc1 follow up and referral plans. Demonstrated understanding of instructions, follow-up care, 00:11 Patient left the ED. vc1 Signatures: Dispatcher [employer] EDMS Cory Garcia MD MD rn Bryson, James, RN RN jb4 Oksana Oneill RN RN kd3 Do Leung RN RN vc1 Shahid Rowe MD MD rt Radha Montez rv1 brittany saldana mm11 Corrections: (The following items were deleted from the chart) 11/24 19:52 18:52 BP 148 / 85; Pulse 123bpm; Resp 23bpm; Pulse Ox 98% 2 lpm Nasal Cannula; 90.72 kg jb4 Measured; jb4
[2024-11-24] MEDS ORDERED: HYDROCODONE/APAP 10/325 TAB ONE (23:44)
[2024-11-25 00:18] VITALS: TEMP 98.8
[2024-11-25 00:21] VITALS: BP 120/84; O2SAT 100
--- NOTE | 2024-11-26 13:30 | EKG ---
Test Date: 2024-11-24 Test Time: 19:41:58 Fermenter Wine: MM MEASUREMENT RESULTS: Intervals: Rate: 114 ME: 154 QRSD: 84 QT: 348 QTc: 479 [place]: P: 51 ME: 154 QRS: 69 T: -12 INTERPRETIVE STATEMENTS: Sinus tachycardia T wave abnormality, consider inferior ischemia T wave abnormality, consider anterolateral ischemia Abnormal ECG Compared to ECG 10/19/2024 09:02:42 T-wave abnormality now present Possible ischemia now present Electronically Signed On 11-26-24 13:19:58 CDT by Chucky Pelaez
== END 2024-11-25 00:11 | disposition home or self-care (01) ==
LOC: ER 18:40
DX: R41.82 Altered mental status, unspecified (principal); G89.3 Neoplasm related pain (acute) (chronic); C41.9 Malignant neoplasm of bone and articular cartilage, unspecified; C34.90 Malignant neoplasm of unspecified part of unspecified bronchus or lung; Z11.52 Encounter for screening for COVID-19
CPT/HCPCS: 93005; 87040 ×2; 85025; 36415; 87205 ×2; 85610; 82947; 83605; 85730; 80053; 70450; 71260; 74177; 71045; 96374; 99284; 87428; Q9967; J2405; J7040